=== PATIENT | male | born 1970 | race Caucasian/White ===

== ENCOUNTER 2020-01-13 22:19 | Emergency (ER) | payer SELFPAY ==
[2020-01-13 22:22] VITALS: BP 122/88; PULSE 96; RESP 18; TEMP 36.7; O2SAT 99; BMI 21.2
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
[2020-01-13 22:47] VITALS: BP 132/99; PULSE 99; RESP 20; O2SAT 98
[2020-01-13 23:23] VITALS: RESP 18; O2SAT 99
[2020-01-13] MEDS: morphine 4 mg/mL SDV 1 mL IVP (23:23)
[2020-01-13] MEDS: ondansetron 2 mg/ML SDV 2 mL 4 MG IVP (23:23)
[2020-01-13 23:25] VITALS: BP 120/88; PULSE 98; RESP 18; O2SAT 99
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
[2020-01-14] MEDS: HYDROcodone-acetaminophen 5-325 mg Tablet 3 TAB PO (00:21)
[2020-01-14] MEDS: tetanus-diphtheria tox (adult) 0.5 mL SDV IM (00:22)
[2020-01-14 00:40] VITALS: BP 130/94; PULSE 96; RESP 16; O2SAT 96
--- NOTE | 2020-01-14 09:38 | PC.SOCIAL ---
Received referral from ED regarding Ortho appt. Spoke with Caterina at [facility]. She will print off information to have Pat and Provider to review. If unable to schedule appt this nurse will be notified.
--- NOTE | 2020-01-15 14:13 | PC.SOCIAL ---
Call Received from [facility] in ortho to update that the number listed for this patient is not in service. The same number is listed for the Mother also. This nurse also tried and was the same outcome. [facility] and this nurse were not able to find another contact.
== END 2020-01-14 00:46 | disposition home or self-care (01) ==
PROVIDERS: Emergency Provider Physician Assistant
DX: S42.022A Displaced fracture of shaft of left clavicle, initial encounter for closed fracture (principal); S62.347A Nondisplaced fracture of base of fifth metacarpal bone, left hand, initial encounter for closed fracture; S01.01XA Laceration without foreign body of scalp, initial encounter; V19.9XXA Pedal cyclist (driver) (passenger) injured in unspecified traffic accident, initial encounter; Z23 Encounter for immunization
CPT/HCPCS: 12001; 12345; 29125; 70450; 72125; 73030; 73080; 73090; 73130; 90471; 90714; 96374; 96375; 99283; J2270; J2405

== ENCOUNTER 2020-02-05 15:13 | Emergency (ER) | payer SELFPAY ==
[2020-02-05 15:16] VITALS: BMI 21.2
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
[2020-02-05 15:21] VITALS: BP 130/88; PULSE 96; RESP 16; TEMP 36.8; O2SAT 98
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
[2020-02-05 16:03] VITALS: BP 130/86; PULSE 87; RESP 18
--- NOTE | 2020-02-06 08:25 | DCPLANNER ---
software design manager had message to schedule a follow up appointment for patient with ortho. software design manager called the ortho clinic, spoke with Pat, gave clinic patients information. software design manager was told that patients information would be printed and reviewed. Clinic will call patient with appointment information.
--- NOTE | 2020-02-07 13:08 | DCPLANNER ---
Patient has a follow up appointment scheduled for Tuesday February 11, 2020 at 2:[address] Goodwin. Patient called behavioral health case manager, patient was given appointment information.
--- NOTE | 2020-03-06 15:23 | DCPLANNER ---
Patient had an appointment scheduled for 02.11.20 with ortho - patient did attend appointment.
== END 2020-02-05 16:03 | disposition home or self-care (01) ==
PROVIDERS: Emergency Provider Emergency Medicine
DX: S42.022A Displaced fracture of shaft of left clavicle, initial encounter for closed fracture (principal); V19.9XXA Pedal cyclist (driver) (passenger) injured in unspecified traffic accident, initial encounter; J44.9 Chronic obstructive pulmonary disease, unspecified
CPT/HCPCS: 12345; 71045; 73000; 99281; 99283

== ENCOUNTER 2020-02-13 12:32 | Day surgery (SDC) | payer SELFPAY ==
[2020-02-12 13:11] VITALS: BMI 19.0
[2020-02-13] VITALS (9 sets, daily range): BP systolic 111–140; BP diastolic 78–100; PULSE 74–92; RESP 16–18; TEMP 36.3–36.6; O2SAT 96–100
--- NOTE | 2020-02-13 | XR_ITS ---
WS: [id number] Left clavicle, 3 views, C-arm fluoroscopy in the OR, 02/13/2020 Clinical Data: ORIF clavicle Comparison: Left clavicle, 02/05/2020. Findings: The mid shaft fracture of the left clavicle has been reduced with an orthopedic plate fixed to the cl avicle with at least 9 orthopedic screws. XR/[place] [id number] Impression: Internal fixation of mid shaft fracture of the left clavicle.
--- NOTE | 2020-02-13 | SCC_ITS ---
Procedure Done: Open reduction internal fixation left clavicle 10.3 seconds of fluoroscopic guidance, for a cumulative dose of 0.77 mGy, was provided to Dr. Goodwin by the radiology department. C-arm images of the LEFT clavicle were saved for the patient's permanent record. [facility]
--- NOTE | 2020-02-13 13:11 | ANES.PREANE2 ---
Pre-Anesthetic Assessment Pre-Anesthetic Assessment: Height/Weight: Height 1.83 m Weight 63.503 kg Temp Pulse Resp BP Pulse Ox 97.8 F 86 18 118/87 98 02/13/20 12:46 02/13/20 12:46 02/13/20 12:46 02/13/20 12:46 02/13/20 12:46 Preop Diagnosis: Left clavicle fracture Proposed Procedure: Operation Date: 02/13/20 14:10 Proposed Procedures p ORIF Clavicle [id number] S42.022A(Left) - Adriano Goodwin MD Familial anesthetic complications: none Was Beta Hayden taken within 24 hours: N/A Last intake: Intake Last Liquid Date 02/12/20 Last Liquid Time 21:00 Last Solid Date 02/12/20 Last Solid Time 17:00 Social: Social History: No alcohol and No tobacco Exam: Pre-Anes Outpt Exam: alert, oriented x 3, clear to auscultation bilaterally and regular rate & rhythm Airway: Cervical ROM: WNL MP: 2 Dentition: Other (poor dentition, missing teeth) Pulmonary: Pulmonary: COPD Comments: severe copd w/ mesothelioma 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 patient tolerating current pain well and doesn't like needles, so would like to avoid nerve block Anesthetic Plan: ASA status: 1 Risk of > 500 ml blood loss (7ml/kg in children): No PFSH Anesthesia PFSH: Medical History (Updated 02/13/20 @ 00:00 by ) COPD (chronic obstructive pulmonary disease) Data Anesthesia Cardiac Studies: No Data to Display
--- NOTE | 2020-02-13 13:13 | W.PM.OPSUD ---
Surgery/Procedure H&P Update DATE OF PROCEDURE: February 13, 2020 DATE H&P PERFORMED: 02/11/20 PREOP DIAGNOSIS: Left clavicle fracture PLANNED PROCEDURE: Operation Date: 02/13/20 14:10 Proposed Procedures p ORIF Clavicle 25235 S42.022A(Left) - Adriano Goodwin MD
[2020-02-13] MEDS: sodium chloride 0.9% 1,000 ML 30 ML IV (13:43)
--- NOTE | 2020-02-13 18:48 | PM.OP ---
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 He was given 2 g of Ancef. He is prepped and draped in a beachchair position. A 8 cm long incision was made over the prominent clavicle prominence along the line of the clavicle medially and laterally. Dissection was carried down full-thickness and the delto pectoral fascia was split periosteum and elevated off the dorsal clavicle fragments. The fibrous nonunion was identified. Utilizing a [place] both ends of the bone were eventually freed and the clavicle brought out to length. There is a prominent anterior spike medially which corresponded to a anterior deficit with the lateral fragment. These fragments were keyed together in a single interfragmentary anterior to posterior screw was placed. The 10 hole plate was then contoured dorsally over the clavicle and fixed with a total of 9 locking and nonlocking screws screws leaving one over the fracture site. Intraoperative imaging showed satisfactory [place] the hardware and alignment of the clavicle. The wound was irrigated with saline. The periosteum and fascia was reapproximated dorsally over the clavicle with 0 Vicryl. Subcutaneous tissues were closed with 2-0 Vicryl. The skin was closed with skin loc. Xeroflo gauze 4 x 4's and Tegaderm were applied.
[2020-02-13] MEDS: meperidine 50 mg/mL INJ 12.5 MG IVP (19:00)
--- NOTE | 2020-02-13 19:01 | ANE.PACU2 ---
Inpatient post-anesthesia follow up: Airway intact: Yes Vital signs: Temperature 97.8 F Pulse Rate 86 Respiratory Rate 18 Blood Pressure 118/87 Pulse Oximetry 98 Oxygen Delivery Me thod Room Air Oxygen Flow Rate Fraction of Inspir ed Oxygen Hydration adequate: Yes Nausea and vomiting: No Pain level: 1 Mental status: Baseline
--- NOTE | 2020-02-14 07:43 | SUR.PHASEI ---
02/12/1943 pt awake alert wants to go eat, pt instructions given pt alert and understanding, pt instructed to keep sling in place and not to use lt arm, dressing D/I, pt drank 2 sodas, IV DC'D INTACT, PT UP DRESSED SELF WITH MINIMAL ASSIST TO CAR WITH FRIEND PER W/C.
== END 2020-02-13 19:45 | disposition home or self-care (01) ==
PROVIDERS: Visit Provider Orthopaedic Surgery
PROC: (CPT 23515; principal; 2020-02-13 14:10)
DX: S42.022K Displaced fracture of shaft of left clavicle, subsequent encounter for fracture with nonunion (principal); J44.9 Chronic obstructive pulmonary disease, unspecified; V19.9XXD Pedal cyclist (driver) (passenger) injured in unspecified traffic accident, subsequent encounter
CPT/HCPCS: 20690; 23515; 12345; 73000; 76000; C1713; J0131; J0690; J1100; J1580; J2175; J2250; J2405; J2704; J2710; J3010; J3490; J7030

== ENCOUNTER 2021-02-11 00:51 | Inpatient (IN) | payer MEDICAID, SELFPAY ==
[2021-02-11 01:03] VITALS: BP 155/102; PULSE 93; RESP 22; TEMP 36.7; O2SAT 98; BMI 20.7
--- NOTE | 2021-02-11 03:45 | CTR_ITS ---
PROCEDURE INFORMATION: Exam: CT Abdomen And Pelvis With Contrast Exam date and time: 02/11/2021 3:45 AM Age: 50 years old Clinical indication: Abdominal pain; Generalized; Patient HX: Diffuse abd pain with nausea. Dysuria. TECHNIQUE: Imaging protocol: Computed tomography of the abdomen and pelvis with contrast. Radiation optimization: All CT scans at this facility use at least one of these dose optimization techniques: automated exposure control; mA and/or kV adjustment per patient size (includes targeted exams where dose is matched to clinical indication); or iterative reconstruction. Contrast material: OMNI 300; Contrast volume: 95 ml; Contrast route: INTRAVENOUS (IV); COMPARISON: CR (CHEST, ) 02/11/2021 4:25 AM RADIATION DOSE METRICS: Total DLP (mGy-cm): 900.41 FINDINGS: Lungs: The lung bases are clear. No effusion Liver: Multiple subcentimeter lesions are present primarily at the periphery of the liver. Gallbladder and bile ducts: Gallbladder is normal. Pancreas: Pancreas is normal. Spleen: Spleen is normal. Adrenal glands: Adrenals are normal. Kidneys and ureters: Bilateral striated nephrograms are present in both kidneys consistent with pyelonephritis. 1.4 cm left renal cyst. Stomach and bowel: Unremarkable. No obstruction. No mucosal thickening. Appendix: No evidence of appendicitis. Intraperitoneal space: Unremarkable. No free air. No significant fluid collection. Vasculature: Unremarkable. No abdominal aortic aneurysm. Lymph nodes: Unremarkable. No enlarged lymph nodes. Urinary bladder: Unremarkable as visualized. Reproductive: Unremarkable as visualized. Bones/joints: Unremarkable. No acute fracture. Soft tissues: Unremarkable. CT/CT abdomen pelvis w con* [id number] IMPRESSION: 1. Bilateral striated nephrograms are present in both kidneys consistent with pyelonephritis. 2. Multiple liver lesions which are too small to accurately characterize but could represent cysts. Alternatively, given the presence of bilateral pyelonephritis, findings may represent foci of infection. Metastatic disease is also possibility. Recommend short interval follow-up. THIS REPORT CONTAINS FINDINGS THAT MAY BE CRITICAL TO PATIENT CARE. The findings were verbally communicated by me to MAXI HILL via telephone conference at 5:29 AM CDT on 02/11/2021. The findings were acknowledged and understood. COMMENTS: Consistent with the [employer]'s Incidental Findings Committee white paper (J Am Keke Radiol 2018): Any incidental renal lesion less than 1 cm or classified as too small to characterize, or any incidental cystic renal lesion characterized as simple-appearing, is likely benign. No follow-up imaging is recommended for these lesions per consensus recommendations based on imaging criteria. Radiation Dose CTDIVOL = (mGy): DLP = 900.41 (mGy-cm)
--- NOTE | 2021-02-11 03:51 | XRR_ITS ---
PROCEDURE INFORMATION: Exam: XR Chest Exam date and time: 02/11/2021 3:51 AM Age: 50 years old Clinical indication: Cough and tachypnea; Prior surgery; Surgery type: Clavicle fixation; Patient HX: Cough/sob. TECHNIQUE: Imaging protocol: XR of the chest. Views: 1 view. COMPARISON: CR XR chest 1V portable [id number] 02/05/2020 3:20 PM FINDINGS: Lungs: Single calcified pulmonary granuloma is present, consistent with prior granulomatous disease. Pleural spaces: Unremarkable. No pleural effusion. No pneumothorax. Heart/Mediastinum: Unremarkable. No cardiomegaly. Bones/joints: Buttress plate and screw fixation of the left clavicle. XR/XR chest 1V portable [id number] IMPRESSION: No acute disease.
--- NOTE | 2021-02-11 03:52 | ED_ITS ---
HPI - Abdominal Pain General: Chief Complaint: Abdominal Pain Stated Complaint: ABD Pain Time Seen by Provider: 02/11/21 03:34 Source: patient Mode of arrival: ambulatory Limitations: no limitations History of Present Illness: HPI narrative: 50-year-old male who is here with multiple complaints. His main complaint is been having abdominal pain for months. He states he also been having difficulty with bowel movements for 6 months and states he has been urinating without being able to control it for 6 to 8 months as well. He states the pain is sharp in his abdomen mainly right upper quadrant states he feels like it is nerve pain. He states that he has not had a real bowel movement in 3 to 4 months and is just very small bowel movements. He has had nausea but denies any vomiting. He denies any fever. Associated Symptoms: Reports chills, diarrhea, nausea and vomiting; Denies dysuria Review of Systems Const: Reports: chills Eyes: Denies: blurry vision or eye discomfort ENMT: Denies: throat pain or dental pain Card: Denies: chest pain Resp: Denies: dyspnea GI: Reports: abdominal pain, nausea, vomiting and diarrhea : Denies: dysuria Musc: Denies: neck pain or back pain Skin/Breast: Denies: rash Neuro: Denies: headache(s) Psych: Denies: depression Matthias/Lymph: Denies: easy bruising All/Imm: Denies: urticaria PFS ED PFSH: Medical History (Updated 02/11/21 @ 05:39 by Maxi Hill MD) COPD (chronic obstructive pulmonary disease) Physical Exam Const: COMMON NORMALS: no acute distress and patient oriented x3 GENERAL APPEARANCE: disheveled and ill appearing HENMT: COMMON NORMALS: normocephalic and atraumatic HEAD & SCALP: normocephalic and atraumatic Eye: COMMON NORMALS: Equal, round and reactive pupils present and EOMs intact bilaterally PUPIL: Yes Equal, round and reactive pupils present Neck/C-Spine: COMMON NORMALS: full ROM and supple Chest: COMMONS NORMALS: normal inspection of the chest and normal palpation of entire chest wall Resp: COMMON NORMALS: normal respiratory effort, No retractions, No use of accessory muscles and clear to auscultation bilaterally AUSCULTATION: clear to auscultation bilaterally Cardio: COMMON NORMALS: regular rate, regular rhythm and No murmurs present (Cardio) RATE: regular rate RHYTHM: regular rhythm GI: COMMON NORMALS: Normal to inspection, nondistended, normoactive bowel sounds present, Soft to palpation, non-tender and no masses PALPATION: Yes Soft to palpation Extremity: COMMON NORMALS: normal to inspection and full ROM Neuro: COMMON NORMALS: patient oriented x3, moves all extremities and no focal motor deficits Psych: COMMON NORMALS: mental status grossly normal, Normal thought process present and cooperative THOUGHT PROCESS: Normal thought process present Skin: COMMON NORMALS: no rashes or lesions noted and no wounds GENERAL SKIN EXAM: no rashes or lesions noted Course Vital Signs: Vital signs: Vital Signs Temperature 98.0 F 02/11/21 01:03 Pulse Rate 84 02/11/21 05:26 Respiratory Rate 19 H 02/11/21 05:26 Blood Pressure 128/87 02/11/21 05:26 Pulse Oximetry 94 02/11/21 05:26 MDM - Abdominal Pain MDM Narrative: Medical decision making narrative: Patient presents here with elevated white count CT findings showing bilateral pyelonephritis. Patient also has liver lesions that are concerning for cyst versus infection foci versus metastases. Patient denies drug use we will check a urine drug screen. I started patient on IV antibiotics and spoke to the hospitalist will admit at this time. Lab Data: Labs: Lab Results 02/11/21 02/11/21 02/11/21 Range/Units 03:52 03:52 05:07 WBC 18.5 H (4.0-10.0) 10^3/ uL RBC 3.86 L (4.1-5.3) 10^6/u L Hgb 11.9 (11.7-16.6) g/dL Hct 35.7 L (42.0-52.0) % MCV 92.5 (80-94) fl MCH 30.8 (28.0-34.0) pg MCHC 33.3 (30.0-36.0) g/dL RDW 14.2 (12.1-15.1) % Plt Count 290 (130-400) 10^3/c mm MPV 9.5 (7.4-10.4) fL Neut % (Auto) 81.4 % Lymph % (Auto) 5.7 % [place] % (Auto) 6.0 % Eos % (Auto) 5.3 % Baso % (Auto) 0.4 % Neut # (Auto) 15.02 H (1.8-7.7) 10^3/u L Lymph # (Auto) 1.1 (0.8-4.8) 10^3/u L [place] # (Auto) 1.1 H (0.2-0.9) 10^3/u L Eos # (Auto) 1.0 H (0.0-0.8) 10^3/u L Baso # (Auto) 0.1 (0.0-0.1) 10^3/u L Nucleated RBC % (a uto) 0 % Nucleated RBCs # 0.0 /100WBC Sodium Cancelled 133 L Potassium Cancelled 4.1 Chloride Cancelled 100 Carbon Dioxide Cancelled 26 Anion Gap Cancelled 11.1 BUN Cancelled 14 Creatinine Cancelled 0.7 GFR Calculation Cancelled 120.4 Glucose Cancelled 79 Calculated Osmolal ity Cancelled 275 L Calcium Cancelled 7.2 L Total Bilirubin Cancelled 0.4 AST Cancelled 46 H ALT Cancelled 52 H Alkaline Phosphata se Cancelled 222 H Total Protein Cancelled 6.8 Albumin Cancelled 1.8 L Globulin Cancelled 5.0 H Lipase Cancelled 58 Imaging Data ^: CT Abd/Pel: Attestation: I personally reviewed and interpreted this imaging study as follows: Radiologist's impression: [address] [address] [address] Scan Report Signed Patient: Rk Orourke Unit #: [id number] : 1970 Age/Sex: 50 / M ADM Date: 02/11/21 Loc: ER Room/Bed: Attending Dr: Ordering Provider/Ordering MD: Maxi Hill MD Date of Service: 02/11/21 Procedure(s): CT abdomen pelvis w con* [id number] Accession Number(s): [id number] Report Number: [id number] PROCEDURE INFORMATION: Exam: CT Abdomen And Pelvis With Contrast Exam date and time: 02/11/2021 3:45 AM Age: 50 years old Clinical indication: Abdominal pain; Generalized; Patient HX: Diffuse abd pain with nausea. Dysuria. TECHNIQUE: Imaging protocol: Computed tomography of the abdomen and pelvis with contrast. Radiation optimization: All CT scans at this facility use at least one of these dose optimization techniques: automated exposure control; mA and/or kV adjustment per patient size (includes targeted exams where dose is matched to clinical indication); or iterative reconstruction. Contrast material: OMNI 300; Contrast volume: 95 ml; Contrast route: INTRAVENOUS (IV); COMPARISON: CR (CHEST, ) 02/11/2021 4:25 AM RADIATION DOSE METRICS: Total DLP (mGy-cm): 900.41 FINDINGS: Lungs: The lung bases are clear. No effusion Liver: Multiple subcentimeter lesions are present primarily at the periphery of the liver. Gallbladder and bile ducts: Gallbladder is normal. Pancreas: Pancreas is normal. Spleen: Spleen is normal. Adrenal glands: Adrenals are normal. Kidneys and ureters: Bilateral striated nephrograms are present in both kidneys consistent with pyelonephritis. 1.4 cm left renal cyst. Stomach and bowel: Unremarkable. No obstruction. No mucosal thickening. Appendix: No evidence of appendicitis. Intraperitoneal space: Unremarkable. No free air. No significant fluid collection. Vasculature: Unremarkable. No abdominal aortic aneurysm. Lymph nodes: Unremarkable. No enlarged lymph nodes. Urinary bladder: Unremarkable as visualized. Reproductive: Unremarkable as visualized. Bones/joints: Unremarkable. No acute fracture. Soft tissues: Unremarkable. CT/CT abdomen pelvis w con* [id number] IMPRESSION: 1. Bilateral striated nephrograms are present in both kidneys consistent with pyelonephritis. 2. Multiple liver lesions which are too small to accurately characterize but could represent cysts. Alternatively, given the presence of bilateral pyelonephritis, findings may represent foci of infection. Metastatic disease is also possibility. Recommend short interval follow-up. THIS REPORT CONTAINS FINDINGS THAT MAY BE CRITICAL TO PATIENT CARE. The findings were verbally communicated by me to MAXI HILL via telephone conference at 5:29 AM CDT on 02/11/2021. The findings were acknowledged and understood. COMMENTS: Consistent with the [employer]'s Incidental Findings Committee white paper (J Am Keke Radiol 2018): Any incidental renal lesion less than 1 cm or classified as too small to characterize, or any incidental cystic renal lesion characterized as simple-appearing, is likely benign. No follow-up imaging is recommended for these lesions per consensus recommendations based on imaging criteria. 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
[2021-02-11 03:53] VITALS: BP 149/112; PULSE 85; RESP 25; O2SAT 98
[2021-02-11] MEDS: sodium chloride 0.9% 1,000 ML 999 ML IV (04:02)
[2021-02-11] MEDS: metoclopramide 5 mg/mL SDV 2 mL 10 MG IVP (04:02)
[2021-02-11] MEDS: diphenhydrAMINE 50 mg/mL SDV 1mL IVP (04:03)
[2021-02-11 04:06] LABS: Basophils # 0.1 10^3/uL (0.0-0.1); Basophils % 0.4 %; Eosinophils % 5.3 %; Hematocrit 35.7 % (42.0-52.0); Hemoglobin 11.9 g/dL (11.7-16.6); Lymphocytes # 1.1 10^3/uL (0.8-4.8); Lymphocytes % 5.7 %; Mean Corpuscular HGB Conc 33.3 g/dL (30.0-36.0); Mean Corpuscular Hemoglobin 30.8 pg (28.0-34.0); Mean Corpuscular Volume 92.5 fl (80-94); Mean Platelet Volume 9.5 fL (7.4-10.4); Monocytes # 1.1 10^3/uL (0.2-0.9); Neutrophils # 15.02 10^3/uL (1.8-7.7); Neutrophils % 81.4 %; Nucleated Red Blood Cells % 0 %; Platelet Count 290 10^3/cmm (130-400); Red Blood Count 3.86 10^6/uL (4.1-5.3); Red Cell Distribution Width 14.2 % (12.1-15.1); White Blood Count 18.5 10^3/uL (4.0-10.0)
[2021-02-11] MEDS: iohexol 300 mg/mL 100 mL Btl IV (04:42)
[2021-02-11 05:26] VITALS: BP 128/87; PULSE 84; RESP 19; O2SAT 94
[2021-02-11 05:31] LABS: Alanine Aminotransferase 52 U/L (0-41); Albumin Level 1.8 g/dL (3.5-5.2); Alkaline Phosphatase 222 IU/L (40-130); Blood Urea Nitrogen 14 mg/dL (6-20); Calcium 7.2 mg/dL (8.5-10.5); Carbon Dioxide 26 mmol/L (22-29); Chloride 100 mmol/L (98-107); Glomerular Filtration Rate 120.4 mL/min (90-130); Glucose 79 mg/dL (65-115); Lipase 58 U/L (13-60); Osmolality Calculated 275 mOsm/kg (285-295); Sodium 133 mmol/L (136-145); Total Bilirubin 0.4 mg/dL (0.15-1.2); Total Protein 6.8 g/dL (6.6-8.7)
[2021-02-11 05:32] LABS: Anion Gap 11.1 (5-19); Aspartate Amino Transferase 46 U/L (0-40); Potassium 4.1 mmol/L (3.5-5.1)
[2021-02-11 05:40] LABS: Add Urine Microscopic? NO; Charge for UA Resulting for Rev
[2021-02-11 05:54] LABS: Bilirubin Urine Neg (Negative); Blood Urine Neg (Negative); Glucose Urine UA Norm (Normal); Ketones Urine Negative (Negative); Leukocyte Esterase Urine Negative (Negative); Nitrate Urine Negative (Negative); Protein Urine Neg (Negative); Specific Gravity, Urine 1.005 (1.005-1.030); Urine Appearance Clear (CLEAR); Urine Color Amber (Yellow); Urobilinogen Urine 1 mg/dL (Negative); pH Urine 7 (5-7)
[2021-02-11 06:37] LABS: Amphetamines Screen Urine Positive (Negative); Barbiturates Screen Urine Negative (Negative); Benzodiazepines Screen Urine Negative (Negative); Cocaine Screen Urine Negative (Negative); Opiate Screen Urine Negative (Negative); PCP Screen Urine Negative (Negative); THC Screen Urine Positive (Negative)
[2021-02-11] MEDS: cefTRIAXone 1,000 MG in sodium chloride 0.9% (plus) 50 ML 100 MG IV (07:06)
--- NOTE | 2021-02-11 08:24 | PC.PHAR ---
PT STATES HE TAKES NO RX OR OTC MEDICATIONS-PT STATES HE HAS A PROAIR INHALER THAT HE USES STATES ITS HIS FRIENDS INHALER BUT HE USES IT
--- NOTE | 2021-02-11 09:48 | US_ITS ---
WS: [id number] RIGHT UPPER QUADRANT ULTRASOUND HISTORY: increased LFT's COMPARISON: Abdomen CT 02/11/2021 Liver: 17.4 cm in length. Liver is top normal size to slightly enlarged. No discrete masses are ident ified within the liver. There is some very mild in homogeneity within the liver and bright portal tri ads. Gallbladder: Normally distended gallbladder. Mild diffuse gallbladder wall thickening. CBD: 0.6 cm Pancreas: Normal size and echogenicity. Right kidney: 12.2 cm in length. Kidney is mildly enlarged with loss of the normal cortical medullary junction. No obstruction. Aorta and IVC: Unremarkable abdominal aorta and IVC. No ascites. US/US gall bladder [id number] IMPRESSION: 1. Mildly enlarged heterogeneous liver without a discrete mass identified. Pro minent portal triads and gallbladder wall thickening. These findings can be see n with acute hepatitis. 2. Suspect acute RIGHT polynephritis. 3. Recommend follow-up three-phase hepatic liver CT in one to 2 weeks for furt her evaluation of the liver.
--- NOTE | 2021-02-11 09:49 | USCV_ITS ---
Rk Orourke Age: 50 Gender: M : 1970 Exam Date: 02/11/2021 10:11 Ordering Phys: Hiro Delaney MD Technologist: Exam Location: [facility] [place] Indication: ? ENDOCARDITIS BP: 128 / 87 HR: 82 Rhythm: Sinus Technical Quality: Adequate MEASUREMENTS (Male / Female) Normal Values 2D ECHO LV Diastolic Diameter PLAX 3.3 cm 4.2 - 5.9 / 3.9 - 5.3 cm LV Systolic Diameter PLAX 2.6 cm IVS Diastolic Thickness 1.1 cm 0.6 - 1.0 / 0.6 - 0.9 cm IVS Systolic Thickness 1.3 cm LVPW Diastolic Thickness 1.0 cm 0.6 - 1.0 / 0.6 - 0.9 cm LVPW Systolic Thickness 1.2 cm LVOT Diameter 2.1 cm LV Ejection Fraction 2D Teich 28.9 % LV Ejection Fraction MOD 2C 58.3 % LV Ejection Fraction 2C AL 57.4 % LA Diameter 3.4 cm LA Width 3.3 cm LA Height 3.8 cm RA Width 3.4 cm RA Height 4.3 cm M-MODE Aortic Annulus Diameter 3.2 cm LA Ao Ratio MM 1.0 DOPPLER AV Peak Velocity 101.0 cm/s LVOT Peak Velocity 97.0 cm/s AV Area Cont Eq vti 3.6 cm squared AV Area Cont Eq pk 3.2 cm squared MV Area PHT 5.0 cm squared Mitral E to A Ratio 1.0 MV E' Velocity 46.5 cm/s Mitral E to MV E' Ratio 8.2 Mitral E to LV E' Lateral Ratio 6.9 Mitral E to LV E' Septal Ratio 10.2 TR Peak Velocity 126.3 cm/s TR Peak Gradient 6.4 mmHg TV Peak E Velocity 85.0 cm/s Right Atrial Pressure 3.0 mmHg Pulmonary Artery Systolic Pressu 9.4 mmHg FINDINGS Left Ventricle Normal left ventricular cavity size. Severely decreased left ventricular systolic function. Global left ventricular hypokinesis. Left ventricular ejection fraction is estimated at 35 %. Grade I/IV diastolic dysfunction (abnormal relaxation filling pattern), normal to mildly elevated filling pressures. Right Ventricle The right ventricle is normal in size and function. Right Atrium The right atrium is normal in size. Left Atrium The left atrium is normal in size. Mitral Valve Moderately thickened mitral valve. No mitral valve stenosis. No mitral valve regurgitation. Aortic Valve Aortic valve sclerosis without stenosis or regurgitation. Tricuspid Valve Structurally normal tricuspid valve without significant stenosis or regurgitation. Pulmonary artery systolic pressure is normal. Pulmonic Valve Structurally normal pulmonic valve without significant stenosis. There is no pulmonic regurgitation. Pericardium Normal pericardium without effusion. Aorta Normal ascending aorta dimension. CONCLUSIONS 1-Normal left ventricular cavity size. Severely decreased left ventricular systolic function. Global left ventricular hypokinesis. Left ventricular ejection fraction is estimated at 35 %. Grade I/IV diastolic dysfunction (abnormal relaxation filling pattern), normal to mildly elevated filling pressures. 2-No significant valve abnormalities. 3-There is no pericardial effusion. 4-Pulmonary artery systolic pressure is within normal limits. 5-Right atrial pressure is around 5 mm of mercury. 6-There are no prior echocardiogram studies to compare. Domitila Hernandez MD (Electronically Signed) Final Date: 11 February 2021 18:24 S
[2021-02-11 10:54] LABS: HIV 1 & 2 Antibody Non-Reactive (Non-Reactiv); HIV 1 & 2 Antigen Non-Reactive (Non-Reactiv)
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
--- NOTE | 2021-02-11 11:13 | PC.NURSE ---
Patient left against medical advice. Dr. eubanks spoke with patient concerning risks about leaving against medical advice. Patient verbalized understanding.
--- NOTE | 2021-02-12 18:29 | PC.RESP ---
Pulmonary Rehab information sent to patient.
== END 2021-02-11 11:08 | disposition left against medical advice (07) | DRG 392 ==
LOC: ER 09:40 → ER IP 10:28
PROVIDERS: Admitting Provider Internal Medicine; Emergency Provider Emergency Medicine; Visit Provider Internal Medicine
DX: R10.9 Unspecified abdominal pain (principal); Z53.29 Procedure and treatment not carried out because of patient's decision for other reasons; J44.9 Chronic obstructive pulmonary disease, unspecified; K76.9 Liver disease, unspecified; F15.90 Other stimulant use, unspecified, uncomplicated; F17.210 Nicotine dependence, cigarettes, uncomplicated; R35.0 Frequency of micturition
CPT/HCPCS: 71045; 74177; 76705; 80053; 80306; 81003; 83690; 85025; 87040; 87806; 93306; 96365; 96375; 99285; J0696; J1200; J2765; J7030; Q9967

== ENCOUNTER 2021-02-13 12:25 | Inpatient (IN) | payer MEDICAID, SELFPAY ==
[2021-02-13] VITALS (9 sets, daily range): BP systolic 129–162; BP diastolic 88–102; PULSE 84–93; RESP 14–22; TEMP 36.8–37.2; O2SAT 93–100; BMI 22.5
--- NOTE | 2021-02-13 14:11 | PC.NURSE ---
PT ARRIVED TO ROOM AT 14OO; ASSUMED CARE AT THIS TIME.
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
[2021-02-13 14:28] LABS: Basophils # 0.1 10^3/uL (0.0-0.1); Basophils % 0.3 %; Eosinophils # 0.9 10^3/uL (0.0-0.8); Eosinophils % 4.8 %; Hematocrit 32.7 % (42.0-52.0); Hemoglobin 10.8 g/dL (11.7-16.6); Lymphocytes % 5.5 %; Mean Corpuscular Hemoglobin 30.6 pg (28.0-34.0); Mean Corpuscular Volume 92.6 fl (80-94); Mean Platelet Volume 9.4 fL (7.4-10.4); Monocytes # 1.1 10^3/uL (0.2-0.9); Monocytes % 5.7 %; Neutrophils # 15.21 10^3/uL (1.8-7.7); Neutrophils % 82.6 %; Nucleated Red Blood Cells % 0 %; Platelet Count 257 10^3/cmm (130-400); Red Blood Count 3.53 10^6/uL (4.1-5.3); Red Cell Distribution Width 14.5 % (12.1-15.1); White Blood Count 18.4 10^3/uL (4.0-10.0)
[2021-02-13 14:38] LABS: Alanine Aminotransferase 55 U/L (0-41); Albumin Level 2.1 g/dL (3.5-5.2); Alkaline Phosphatase 271 IU/L (40-130); Anion Gap 10.5 (5-19); Aspartate Amino Transferase 54 U/L (0-40); Blood Urea Nitrogen 13 mg/dL (6-20); Calcium 7.5 mg/dL (8.5-10.5); Carbon Dioxide 26 mmol/L (22-29); Chloride 98 mmol/L (98-107); Globulin 4.9 g/dL (1.3-4.6); Glomerular Filtration Rate 79.8 mL/min (90-130); Glucose 117 mg/dL (65-115); Lipase 83 U/L (13-60); Osmolality Calculated 273 mOsm/kg (285-295); Potassium 3.5 mmol/L (3.5-5.1); Sodium 131 mmol/L (136-145); Total Bilirubin 0.3 mg/dL (0.15-1.2)
[2021-02-13 15:01] LABS: Add Urine Microscopic? NO; Charge for UA Resulting for Rev
[2021-02-13] MEDS: fentaNYL 50 mcg/mL INJ 2mL IVP (15:10)
[2021-02-13 15:23] LABS: Bilirubin Urine Neg (Negative); Blood Urine Neg (Negative); Glucose Urine UA Norm (Normal); Ketones Urine Negative (Negative); Leukocyte Esterase Urine Negative (Negative); Nitrate Urine Negative (Negative); Protein Urine Neg (Negative); Urine Appearance Clear (CLEAR); Urine Color Yellow (Yellow); Urobilinogen Urine 1 mg/dL (Negative); pH Urine 6 (5-7)
--- NOTE | 2021-02-13 15:50 | CTR_ITS ---
PROCEDURE INFORMATION: Exam: CT Abdomen And Pelvis Without Contrast Exam date and time: 02/13/2021 3:50 PM Age: 50 years old Clinical indication: Abdominal pain; Additional info: Patient refused contrast, R sided pelyo 2 days ago TECHNIQUE: Imaging protocol: Computed tomography of the abdomen and pelvis without contrast. Radiation optimization: All CT scans at this facility use at least one of these dose optimization techniques: automated exposure control; mA and/or kV adjustment per patient size (includes targeted exams where dose is matched to clinical indication); or iterative reconstruction. COMPARISON: CT abdomen pelvis w con* [id number] 02/11/2021 4:38 AM RADIATION DOSE METRICS: Total DLP (mGy-cm): 1002.88 FINDINGS: Lungs: Moderate hyperinflation of the lower lungs. Liver: Normal. No mass. Gallbladder and bile ducts: Gallbladder wall thickened. However, gallbladder relatively contracted. Negative for biliary system dilation. Pancreas: Normal. No ductal dilation. Spleen: Normal. No splenomegaly. Adrenal glands: Normal. No mass. Kidneys and ureters: Negative for hydroureteronephrosis. Small left kidney cortical simple cyst. 1 mm nonobstructing right kidney stone. 1 mm nonobstructing left lower pole kidney stone. Renal parenchyma is heterogeneous bilaterally of uncertain significance. No renal enlargement Stomach and bowel: No inflammatory bowel wall thickening changes are identified. Moderate fecal volume. Negative for bowel obstruction or perforation. Appendix: No evidence of appendicitis. Intraperitoneal space: Layering small volume simple pelvic free fluid of uncertain significance. Vasculature: Mild severity atherosclerosis of abdominal aorta without aneurysm. Lymph nodes: Unremarkable. No enlarged lymph nodes. Urinary bladder: Unremarkable as visualized. Reproductive: Unremarkable as visualized. Bones/joints: Unremarkable. No acute fracture. Soft tissues: Unremarkable. CT/CT abdomen pelvis wo con [id number] IMPRESSION: 1. Symmetric, somewhat heterogeneous bilateral renal parenchyma without obstruction apparent. 2. Tiny bilateral nonobstructing kidney stones. 3. Gallbladder wall thickening, although contracted appearance. COMMENTS: Consistent with the [employer]'s Incidental Findings Committee white paper (J Am Keke Radiol 2018): Any incidental renal lesion less than 1 cm or classified as too small to characterize, or any incidental cystic renal lesion characterized as simple-appearing, is likely benign. No follow-up imaging is recommended for these lesions per consensus recommendations based on imaging criteria. Radiation Dose CTDIVOL = (mGy): DLP = 1002.88 (mGy-cm)
[2021-02-13] MEDS: metroNIDAZOLE IV 500 MG/100 ML PREMIX 100 MG IV (16:20)
[2021-02-13] MEDS: cefepime 1,000 MG in sodium chloride 0.9% (plus) 50 ML 100 MG IV (16:20)
[2021-02-13 16:21] LABS: INR 1.24 (0.8-1.2)
[2021-02-13 16:23] LABS: Partial Thromboplastin Time 30.9 SECONDS (23.9-36.7)
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
[2021-02-13 17:32] LABS: Lactate (Lactic Acid level) 2.1 mmol/L (0.5-2.2)
[2021-02-13 17:49] LABS: C Reactive Protein 73.9 mg/L (0.0-4.9)
[2021-02-13 17:57] LABS: Procalcitonin 0.24 ng/mL (0-0.5)
[2021-02-13 18:03] LABS: Hepatitis A Antibody IgM Non-Reactive (Nonreactive); Hepatitis B Core AB, Total Reactive (Nonreactive); Hepatitis B Surface AB 3.5 (11.5-1000); Hepatitis C Virus Antibody Non-Reactive (Nonreactive)
[2021-02-13 18:15] LABS: Ammonia 40 umol/L (16-60)
[2021-02-13 18:30] LABS: SARS Covid-2 Antigen Negative (Negative)
--- NOTE | 2021-02-13 19:10 | PC.NURSE ---
ATTEMPTED TO CALL REPORT TO FLOOR. WAITED 10 MINUTES ON HOLD.
[2021-02-13 21:31] LABS: Tumor Marker Alpha Fetoprotein 1.9 ng/mL (0-8.3)
[2021-02-13] MEDS: sodium chloride 0.9% 1,000 ML 75 ML IV (22:09)
[2021-02-13] MEDS: piperacillin-tazobactam 3.375 GM in sodium chloride 0.9% (plus) 50 ML IV (22:16)
[2021-02-13] MEDS: enoxaparin 40 mg/0.4 mL Syringe SUBCUT (22:18)
[2021-02-13 22:37] LABS: Hepatitis B Surface Antigen Reactive (Nonreactive)
[2021-02-14 03:31] VITALS: BP 157/94; PULSE 89; RESP 18; TEMP 37.1; O2SAT 96
[2021-02-14] MEDS: piperacillin-tazobactam 3.375 GM in sodium chloride 0.9% (plus) 50 ML IV ×3 (05:22→21:31)
[2021-02-14 06:31] LABS: Basophils # 0.1 10^3/uL (0.0-0.1); Basophils % 0.3 %; Eosinophils # 0.6 10^3/uL (0.0-0.8); Eosinophils % 3.4 %; Hematocrit 36.7 % (42.0-52.0); Hemoglobin 11.8 g/dL (11.7-16.6); Lymphocytes % 5.4 %; Mean Corpuscular HGB Conc 32.2 g/dL (30.0-36.0); Mean Corpuscular Hemoglobin 31.6 pg (28.0-34.0); Mean Corpuscular Volume 98.1 fl (80-94); Mean Platelet Volume 9.3 fL (7.4-10.4); Monocytes # 1.2 10^3/uL (0.2-0.9); Monocytes % 6.8 %; Neutrophils # 14.52 10^3/uL (1.8-7.7); Neutrophils % 82.9 %; Nucleated Red Blood Cells % 0 %; Platelet Count 198 10^3/cmm (130-400); Red Blood Count 3.74 10^6/uL (4.1-5.3); Red Cell Distribution Width 14.8 % (12.1-15.1); White Blood Count 17.5 10^3/uL (4.0-10.0)
[2021-02-14 06:54] LABS: Alanine Aminotransferase 56 U/L (0-41); Albumin Level 2.1 g/dL (3.5-5.2); Alkaline Phosphatase 201 IU/L (40-130); Anion Gap 11.5 (5-19); Aspartate Amino Transferase 48 U/L (0-40); Blood Urea Nitrogen 13 mg/dL (6-20); Calcium 7.4 mg/dL (8.5-10.5); Carbon Dioxide 25 mmol/L (22-29); Chloride 101 mmol/L (98-107); Globulin 4.5 g/dL (1.3-4.6); Glomerular Filtration Rate 79.8 mL/min (90-130); Glucose 95 mg/dL (65-115); Lipase 72 U/L (13-60); Osmolality Calculated 278 mOsm/kg (285-295); Potassium 3.5 mmol/L (3.5-5.1); Sodium 134 mmol/L (136-145); Total Bilirubin 0.4 mg/dL (0.15-1.2); Total Protein 6.6 g/dL (6.6-8.7)
[2021-02-14 07:53] VITALS: BP 161/94; PULSE 77; RESP 16; TEMP 36.4; O2SAT 99
[2021-02-14 12:00] VITALS: BP 156/82; PULSE 89; RESP 16; TEMP 36.9; O2SAT 97
--- NOTE | 2021-02-14 14:23 | PM.PN ---
Subjective Subjective: Interval history: Patient had 4+ bowel movements after getting bowel regimen, he did not require naltrexone for opiate-induced constipation Hepatitis panel came back positive for surface antigen positive core antibodies positive liver enzymes not getting worse, bilirubin normal, HIV panel negative However at this point I am not sure if it is acute versus chronic hepatitis B there is no further delineation of hepatitis B core antibodies but considering the fact surface antibodies are positive this most likely is more than 2 weeks old Alpha-fetoprotein unremarkable Vitals/I&O/Wt Last Vital Signs Temp 98.5 F 02/14/21 12:00 Pulse 89 02/14/21 12:00 Resp 16 02/14/21 12:00 BP 156/82 02/14/21 12:00 Pulse Ox 97 02/14/21 12:00 02/13/21 02/14/21 02/14/21 22:59 06:59 14:59 Intake Total 150 / 150 50 / 200 1050 / 1050 Output Total 375 / 375 Balance 150 / 150 -325 / -175 1050 / 1050 Weight last 48 hrs Weight 69.201 kg Weight 66.678 kg Physical Exam Narrative: EXAM NARRATIVE: Patient feeling better today, and no abdominal tenderness or peritonitis He was complaining of some pain around his left testicular area however no ulcer, it is tender to palpation No redness found S1, S2 clinically looks euvolemic Abdomen soft EOMI, PERRLA No signs of hepatic encephalopathy Data : 02/14/21 05:55 02/14/21 05:55 Micro: Microbiology 02/14/21 07:00 Enteric Pathogens (PCR) - Final Stool Routine Collection Parasite Antigen Panel - Final 02/13/21 16:20 Blood Culture - Preliminary Blood SPECIMEN COLLECTED 02/13/21 16:24 Blood Culture - Preliminary Blood SPECIMEN COLLECTED A&P Assessment and plan (1) Hepatitis B: Status: Acute (2) Liver nodule: Status: Acute (3) Abdominal pain: Status: Acute (4) Constipated: Status: Acute (5) Methamphetamine use: Status: Acute (6) Transaminitis: Status: Acute (7) Leukocytosis: Status: Acute (8) Abdominal pain: Status: Acute Additional A&P Information Hepatitis B which would explain abnormal transaminases This can also present with generalized body aches Patient is denying IV drug abuse U tox positive for methamphetamine HIV panel negative At this point am not sure whether this is acute versus chronic hepatitis B infection since there are no hepatitis B core antibody delineation There is a high risk of lost to follow-up as he has no PCP I requested lining caser to set up PCP on Monday and set him up with [facility] so he could afford his medication No signs of hepatic encephalopathy, ammonia level normal What I could tell from his BMP is his low albumin which would indicate towards chronic carrier state of hepatitis B PT is very close to normal value, I will go ahead and start him on tenofovir Left testicular pain will request ultrasound with Dopplers to rule out torsion Alpha-fetoprotein unremarkable, interestingly repeated CT scan did not show any liver mass but three-phase CT scan was recommended which patient refused Constipated: Resolved after bowel regimen Leukocytosis seems secondary to hepatitis No active signs of UTI however has severe tenderness I would continue Zosyn for 1 more day Full code Regular diet DVT prophylaxis Lovenox Attestations Medical Necessity Statement*: Will discharge on Monday Time Spent in Patient Care: 16 - 35 minutes Coding Level of Care Code Acute High School Tutor for g Fwd Diagnoses Hepatitis B B19.10 Liver nodule K76.89 Abdominal pain R10.9 Constipated K59.00 Methamphetamine use F15.10 Transaminitis R74.01 Leukocytosis D72.829 Abdominal pain R10.9
[2021-02-14 16:00] VITALS: BP 151/82; PULSE 92; RESP 16; TEMP 36.9; O2SAT 97
[2021-02-14 19:57] VITALS: BP 146/89; PULSE 104; RESP 20; TEMP 37.6; O2SAT 97
[2021-02-14 21:28] VITALS: RESP 18
[2021-02-14] MEDS: oxyCODONE 5 mg IR Tab/Cap PO (21:28)
[2021-02-14] MEDS: ipratropium-albuterol 3 mL Neb INHALATION (22:16)
[2021-02-15] VITALS (10 sets, daily range): BP systolic 113–147; BP diastolic 67–86; PULSE 76–94; RESP 16–18; TEMP 36.7–37.4; O2SAT 94–98
[2021-02-15] MEDS: oxyCODONE 5 mg IR Tab/Cap PO ×2 (04:17→15:48)
[2021-02-15] MEDS: piperacillin-tazobactam 3.375 GM in sodium chloride 0.9% (plus) 50 ML IV ×3 (05:16→23:15)
--- NOTE | 2021-02-15 05:27 | PC.NURSE ---
Patient AAOx4, c/o pain in scrotum that is relieved with pain medication per MAR. No new events over night, no needs at this time. Room clutter free and call light in reach. Turns self in bed, will report to oncoming nurse and handoff at shift change.
[2021-02-15 06:29] LABS: Basophils # 0.1 10^3/uL (0.0-0.1); Basophils % 0.4 %; Eosinophils # 1.3 10^3/uL (0.0-0.8); Eosinophils % 8.3 %; Hematocrit 29.3 % (42.0-52.0); Hemoglobin 9.7 g/dL (11.7-16.6); Lymphocytes % 6.6 %; Mean Corpuscular HGB Conc 33.1 g/dL (30.0-36.0); Mean Corpuscular Hemoglobin 30.6 pg (28.0-34.0); Mean Corpuscular Volume 92.4 fl (80-94); Mean Platelet Volume 9.1 fL (7.4-10.4); Monocytes # 1.2 10^3/uL (0.2-0.9); Monocytes % 7.6 %; Neutrophils # 11.63 10^3/uL (1.8-7.7); Neutrophils % 75.5 %; Nucleated Red Blood Cells % 0 %; Platelet Count 239 10^3/cmm (130-400); Red Blood Count 3.17 10^6/uL (4.1-5.3); Red Cell Distribution Width 14.6 % (12.1-15.1); White Blood Count 15.4 10^3/uL (4.0-10.0)
[2021-02-15 07:15] LABS: Alanine Aminotransferase 41 U/L (0-41); Albumin Level 1.8 g/dL (3.5-5.2); Alkaline Phosphatase 189 IU/L (40-130); Anion Gap 10.5 (5-19); Aspartate Amino Transferase 36 U/L (0-40); Blood Urea Nitrogen 16 mg/dL (6-20); Carbon Dioxide 25 mmol/L (22-29); Chloride 97 mmol/L (98-107); Glomerular Filtration Rate 58.9 mL/min (90-130); Glucose 98 mg/dL (65-115); Osmolality Calculated 269 mOsm/kg (285-295); Potassium 3.5 mmol/L (3.5-5.1); Sodium 129 mmol/L (136-145); Total Bilirubin 0.3 mg/dL (0.15-1.2); Total Protein 5.8 g/dL (6.6-8.7)
[2021-02-15 08:24] LABS: Hepatitis B Core AB, Total Reactive (Nonreactive)
--- NOTE | 2021-02-15 18:13 | US_ITS ---
WS: [id number] TESTICULAR ULTRASOUND HISTORY: Left testicle pain COMPARISON: None available. TECHNIQUE: Real-time and color Doppler imaging or utilized to perform a testicular ultrasound. Right testicle: 3.6 cm x 2.4 cm x 2.3 cm. Normal vascularity. Very mild coarse echotexture. Small focal area of decreased echogenicity with irr egular borders in the mid lateral testicle measures 5 x 4 mm. There is diffuse moderate scrotal wall thickening. Very small hydrocele. Normal color Doppler is present throughout. Systolic and diastolic velocities are both present. Small hydrocele. Right epididymis: Epididymis appears normal. Prominent vessels along the inguinal canal. Left testicle: 3.0 cm x 2.1 cm x 2.5 cm. Normal sized testicle with mild increased vascularity. No mass identified. There is marked diffuse scrotal wall thickening. Marked increased vascularity wit hin the LEFT scrotum probably representing a varicocele. No significant hydrocele. Left epididymis: Normal epididymis with no increased vascularity. US/US scrotum [id number] IMPRESSION: 1. Diffuse scrotal wall thickening. 2. Mild increased vascularity within the LEFT testicle suggesting a mild orchi tis. 3. Bilateral varicoceles. 4. Hypoechoic area measuring 5 x 4 mm in the lateral RIGHT testicle is very no nspecific at this time. May be from a prior ischemic insult or part of the norm al rete testes or early neoplasm. Recommend follow-up scrotal ultrasound in 3 m [facility].
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
--- NOTE | 2021-02-15 18:23 | P.PN_ITS ---
Subjective Subjective: Interval history: Requested urology consult for testicular mass and orchitis Continue Zosyn No sign of testicular torsion Patient is still complaining of testicular pain on left side Complaining of generalized body ache Requested catalytic case operator to apply for director financial analysis he will need Truvada for hepatitis B for at least a year Follow-up with [facility] gagan and Dr. Cook Patient endorsed that his brother got diagnosed with testicular cancer and he had bilateral orchiectomy Requested syphilis, gonorrhea, chlamydia panel will give him azithromycin 1 g PO and ceftriaxone to 50 mg IM x1 Vitals/I&O/Wt Last Vital Signs Temp 99.3 F 02/15/21 15:16 Pulse 89 02/15/21 15:16 Resp 18 02/15/21 15:48 BP 139/84 02/15/21 15:16 Pulse Ox 97 02/15/21 15:16 02/15/21 02/15/21 02/15/21 06:59 14:59 22:59 Intake Total 290 / 1870 1250 / 1250 50 / 1300 Output Total 900 / 900 Balance -610 / 970 1250 / 1250 50 / 1300 Weight last 48 hrs Weight 69.201 kg Physical Exam Narrative: EXAM NARRATIVE: Patient was laying supine however endorses pain in distress on movement because of left-sided testicular pain No active varicocele found when he stood up however pain gets better with lifting of his left testes Soft abdomen, hepatomegaly Nonicteric S1, S2 No acute respiratory distress EOMI, PERRLA In distress because of pain Data : 02/15/21 05:10 02/15/21 05:10 Micro: Microbiology 02/13/21 16:20 Blood Culture - Preliminary Blood NEGATIVE TO DATE 02/13/21 16:24 Blood Culture - Preliminary Blood NEGATIVE TO DATE A&P Assessment and plan (1) Testicular mass: Status: Acute (2) Orchitis: Status: Acute (3) Hepatitis B: Status: Acute (4) Liver nodule: Status: Acute (5) Abdominal pain: Status: Acute (6) Constipated: Status: Acute (7) Methamphetamine use: Status: Acute (8) Transaminitis: Status: Acute (9) Leukocytosis: Status: Acute Additional A&P Information Hepatitis B HIV panel negative Requested HBV DNA panel manager business banking updated to plan for director financial analysis to get him approved for Truvada for at least a year, paperwork signed He will need [facility] clinic and follow-up with Dr. Cook Most likely this is a chronic state of hepatitis B considering low albumin Left-orchitis Ceftriaxone 250 mg IM x1, p.o. 1 g azithromycin x1 Check syphilis HIV panel negative Requested gonorrhea chlamydia panel Right-sided testicular mass Dr. Gordon to see him today Concern for malignancy Family history Father Alpha-fetoprotein Mass on liver That was found on ultrasound however CT abdomen did not show such changes, patient refused triple phase liver CT scan, kindly reevaluate in the morning Constipated: Relieved with bowel regimen with enema Full code Regular diet Lovenox for DVT prophylaxis Attestations Medical Necessity Statement*: Continue medical management for above-mentioned reason Time Spent in Patient Care: 16 - 35 minutes Coding Level of Care Code Acute Mechanical Detailer for candice Fwd Diagnoses Testicular mass N50.89 Orchitis N45.2 Hepatitis B B19.10 Liver nodule K76.89 Abdominal pain R10.9 Constipated K59.00 Methamphetamine use F15.10 Transaminitis R74.01 Leukocytosis D72.829
[2021-02-15] MEDS: azithromycin 250 mg Tablet 1000 MG PO (19:53)
[2021-02-15 21:09] LABS: Rapid Plasma Reagin Syphilis Nonreactive (Nonreactive)
[2021-02-15 21:12] LABS: Quest SARS-CoV-2 RNA NOT DETECTED (NOT DETECTED)
[2021-02-16] VITALS (7 sets, daily range): BP systolic 136–146; BP diastolic 82–91; PULSE 75–96; RESP 16–18; TEMP 36.7–37; O2SAT 93–97
[2021-02-16] MEDS: oxyCODONE 5 mg IR Tab/Cap PO (01:10)
[2021-02-16] MEDS: sodium chloride 0.9% 1,000 ML 75 ML IV (02:29)
[2021-02-16 05:09] LABS: Basophils # 0.1 10^3/uL (0.0-0.1); Basophils % 0.5 %; Eosinophils # 1.6 10^3/uL (0.0-0.8); Eosinophils % 9.2 %; Hemoglobin 10.2 g/dL (11.7-16.6); Lymphocytes % 6.1 %; Mean Corpuscular HGB Conc 32.9 g/dL (30.0-36.0); Mean Corpuscular Hemoglobin 30.4 pg (28.0-34.0); Mean Corpuscular Volume 92.5 fl (80-94); Mean Platelet Volume 9.1 fL (7.4-10.4); Monocytes # 1.3 10^3/uL (0.2-0.9); Monocytes % 7.6 %; Neutrophils # 12.55 10^3/uL (1.8-7.7); Neutrophils % 74.8 %; Nucleated Red Blood Cells % 0 %; Platelet Count 250 10^3/cmm (130-400); Red Blood Count 3.35 10^6/uL (4.1-5.3); Red Cell Distribution Width 14.5 % (12.1-15.1); White Blood Count 16.8 10^3/uL (4.0-10.0)
[2021-02-16 05:32] LABS: Anion Gap 12.6 (5-19); Blood Urea Nitrogen 15 mg/dL (6-20); Calcium 7.6 mg/dL (8.5-10.5); Carbon Dioxide 26 mmol/L (22-29); Chloride 97 mmol/L (98-107); Creatinine Clr Calc Pharmacy 74.6439; Glomerular Filtration Rate 64.6 mL/min (90-130); Glucose 90 mg/dL (65-115); Osmolality Calculated 274 mOsm/kg (285-295); Potassium 3.6 mmol/L (3.5-5.1); Sodium 132 mmol/L (136-145)
[2021-02-16] MEDS: piperacillin-tazobactam 3.375 GM in sodium chloride 0.9% (plus) 50 ML IV (05:47)
[2021-02-16] MEDS: doxycycline 100 mg Tablet PO (09:41)
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
--- NOTE | 2021-02-16 12:31 | PC.NURSE ---
patient showered this AM and tolerated well. upon AM assessment patient was asking when he was going to be discharged. patient verbalized understanding of discharge instructions, home medications and follow up appointments. New prescriptions were delivered to patients bedside, IV removed, and patient wheeled to entrance
[2021-02-16 13:56] LABS: Hepatitis B Envelope Antigen REACTIVE (NON-REACTIVE)
--- NOTE | 2021-02-19 08:34 | PC.SOCIAL ---
discharge follow up call made, phone number listed has a busy signal. Other numbers listed unable to leave message and one number for mother was the wrong number.
--- NOTE | 2021-03-01 16:33 | PC.SOCIAL ---
Was contacted by [facility] regarding Truvada medication.This was approved however this medication is for HIV. Patient did not have HIV per records. Called and discussed with Dr Mullen and he will try to reach patient. Patient will need to follow up with Dr Cook. Will follow up once more information obtained by provider. Currently patient is scheduled to see Dr Cook on 03/11/2021. Per [facility] pt assistance pt did not want to use mail order pharmacy for Truvada and wanted to fill at retail but this information needs to be clarified prior to proceeding. Dr Mullen will update this nurse if anything further needed to be done after attempting to reach patient.
== END 2021-02-16 12:37 | disposition home or self-care (01) | DRG 442 ==
LOC: ER 15:11 → MEDSURG 19:02
PROVIDERS: Admitting Provider Internal Medicine; Emergency Provider Emergency Medicine; Visit Provider Internal Medicine
DX: B18.1 Chronic viral hepatitis B without delta-agent (principal); N10 Acute pyelonephritis; F15.90 Other stimulant use, unspecified, uncomplicated; F12.90 Cannabis use, unspecified, uncomplicated; J44.9 Chronic obstructive pulmonary disease, unspecified; F17.210 Nicotine dependence, cigarettes, uncomplicated; R16.0 Hepatomegaly, not elsewhere classified; K59.03 Drug induced constipation; T40.605A Adverse effect of unspecified narcotics, initial encounter; N45.3 Epididymo-orchitis; N50.9 Disorder of male genital organs, unspecified
CPT/HCPCS: 36415; 74176; 76870; 80048; 80053; 81003; 82105; 82140; 82803; 83605; 83690; 83735; 84145; 85025; 85610; 85730; 86140; 86592; 86704; 86705; 86706; 86709; 86803; 86850; 86900; 87040; 87340; 87350; 87426; 87506; 87517; 87635; 94640; 96365; 96367; 96372; 96375; 99285; J0692; J0696; J1650; J2543; J3010; J7030; Q0144; S0030

== ENCOUNTER 2021-03-01 18:55 | Inpatient (IN) | payer MEDICAID, SELFPAY ==
[2021-03-01 19:05] VITALS: BP 129/93; PULSE 133; RESP 22; TEMP 36.8; O2SAT 98
--- NOTE | 2021-03-01 21:30 | W.ED.NAVMDI ---
Documented by User: Jonh Moran MD 03/04/21 04:29 HPI - Nausea/Vomiting/Diarrhea General: Chief complaint: ER Hold Stated complaint: NAUSEA Time Seen by Provider: 03/01/21 21:30 History of Present Illness: HPI Narrative: Mr. Orourke is a 50-year-old gentleman with history of hepatitis B and substance abuse who presents emergency department due to hematemesis. The exact course of his symptoms is somewhat unclear as he is ill-appearing and has recurrent vomiting without bright red blood. Apparently this for going on for a number of days. It is unclear whether vomiting occurred first and then hematemesis or hematemesis was noted initially. He does endorse a history of similar. He has generalized malaise. He is currently on doxycycline for somewhat unclear reasons. Overall the course of symptoms has been was worsening. History is otherwise limited by mental status change. Review of Systems General: Reports: ROS unobtainable due to mental status PFS ED PFSH: Medical History (Updated 03/02/21 @ 08:36 by Hiro Delaney MD) Abdominal pain Abdominal pain Acute pyelonephritis Broken clavicle Cardiomyopathy Constipated COPD (chronic obstructive pulmonary disease) Hepatitis B Leukocytosis Liver nodule Marijuana use Methamphetamine use Orchitis S/P ORIF (open reduction internal fixation) fracture Clavicle [address] Goodwin Left clavicle Testicular mass Tobacco dependency Transaminitis Surgical History No pertinent past surgical history Social History (Updated 03/02/21 @ 08:21 by Hiro Delaney MD) Smoking and tobacco status: current every day smoker Alcohol intake: never Physical Exam Narrative: EXAM NARRATIVE: GENERAL/CONSTITUTIONAL -ill-appearing, no acute distress Eyes - PERRL, no conjunctival injection, mild yellowing of sclera ENMT - Atraumatic external nose and ears. Dry mucous membranes NECK - supple. trachea midline. No meningeal signs CARDIOVASCULAR -tachycardic rate and regular rhythm. Warm well perfused extremities RESPIRATORY -clear to auscultation bilaterally. No retractions or accessory muscle use. ABDOMEN/GI -tenderness palpation in the epigastric region. Nondistended. No tenderness to percussion or evidence of peritonitis MSK - Extremities without obvious deformity or tenderness to palpation SKIN - Warm, Dry. Scattered scabs. No vesicular rashes. NEURO - alert but encephalopathic, he is oriented. Moves all extremities equally. PSYCH -impaired memory and cognition Course ED course: - Patient was seen and evaluated by me at bedside - Patient placed on cardiac monitors, IV access obtained - Initial evaluation notable for ill appearance, patient appears encephalopathic. Reportedly he had small volume coffee-ground emesis in the waiting room. He had large volume bilious slightly bloody emesis shortly after arrival. Patient appears to be protecting airway at this time. History is somewhat limited. -Fluids, antibiotic, given history of hepatitis B and liver abnormality treatment for GI bleed including octreotide ordered. - Labs notable for marked derangements. Patient has a leukocytosis, hemoglobin stable at this time. Metabolic panel notable for hyponatremia and hyper chloride EMEA, bicarb mildly decreased, anion gap elevated. Patient's creatinine is elevated at 4.2 with elevated BUN. Lactate is markedly elevated though this did improve mildly with fluid resuscitation. Transaminitis present. Although T bili is only mildly elevated INR is well above normal range. Patient's MELD-NA at this time is 65-66%. - Rasheed catheter placed and with volume resuscitation patient actually had fairly decent urine output initially -Patient was unfortunately taken for imaging prior to results of creatinine so patient was given contrast. Imaging notable for no acute intercranial process to explain patient's symptoms. CT imaging notable for esophageal thickening. Other findings similar to prior including abnormal enhancement of kidneys and liver. - Upon serial reexamination after treatment the patient was similar, he remains critically ill. He has not had repeat episodes of emesis or hematemesis. - Based on patient's need for hepatology and significant LUÍS we will attempt to transfer the patient however during my shift there are no available beds so far. - Patient care handed off to daytime physician pending outside transfer versus acceptance by hospitalist service. Vital Signs: Vital signs: Vital Signs Temperature 97.5 F L 03/03/21 19:29 Pulse Rate 110 H 03/04/21 00:00 Respiratory Rate 18 03/04/21 03:52 Blood Pressure 132/106 03/04/21 00:00 Pulse Oximetry 100 03/04/21 03:52 MDM - Nausea/Vomiting/Diarrhea Lab Data: Labs: Lab Results 03/01/21 03/01/21 03/01/21 Range/Units 22:00 22:00 22:00 WBC 23.8 H (4.0-10.0) 10^3/ uL RBC 3.94 L (4.1-5.3) 10^6/u L Hgb 12.1 (11.7-16.6) g/dL Hct 37.6 L (42.0-52.0) % MCV 95.4 H (80-94) fl MCH 30.7 (28.0-34.0) pg MCHC 32.2 (30.0-36.0) g/dL RDW 17.0 H (12.1-15.1) % Plt Count 298 (130-400) 10^3/c mm MPV 9.8 (7.4-10.4) fL Neut % (Auto) 80.8 % Lymph % (Auto) 9.5 % [place] % (Auto) 5.6 % Eos % (Auto) 0.0 % Baso % (Auto) 0.4 % Neut # (Auto) 19.23 H (1.8-7.7) 10^3/u L Lymph # (Auto) 2.3 (0.8-4.8) 10^3/u L [place] # (Auto) 1.3 H (0.2-0.9) 10^3/u L Eos # (Auto) 0.0 (0.0-0.8) 10^3/u L Baso # (Auto) 0.1 (0.0-0.1) 10^3/u L Nucleated RBC % (a uto) 0.1 % Nucleated RBCs # 0.0 /100WBC PT (12.1-14.9) SECO NDS INR (0.8-1.2) Specimen Type Sample Site ABG pH (7.35-7.45) ABG pCO2 (35-45) mmHg ABG pO2 (80.0-100.0) mmH g ABG HCO3 (22-26) mmol/L ABG Base Excess (-2.0-2.0) mmol/ L Zhou Test Hematocrit (42-52) % O2 Delivery Device FiO2 % Specimen Drawn By Wire Drawing Machine Tender ID Sodium 124 L (136-145) mmol/L Potassium 4.5 (3.5-5.1) mmol/L Chloride 82 L (98-107) mmol/L Carbon Dioxide 20 L (22-29) mmol/L Anion Gap 26.5 H (5-19) BUN 77 H (6-20) mg/dL Creatinine 4.2 H (0.7-1.2) mg/dL GFR Calculation 15.2 L (90-130) mL/min Glucose 116 H (65-115) mg/dL POC Glucose (70-110) mg/dL Calculated Osmolal ity 282 L (285-295) mOsm/k g Lactate 6.5 H* (0.5-2.2) mmol/L Calcium 8.1 L (8.5-10.5) mg/dL Total Bilirubin 1.4 H (0.15-1.2) mg/dL Direct Bilirubin (0.00-0.30) mg/d L AST 1643 H (0-40) U/L ALT 901 H (0-41) U/L Alkaline Phosphata se 311 H (40-130) IU/L Ammonia (16-60) umol/L Creatine Kinase (39-308) U/L Total Protein 8.0 (6.6-8.7) g/dL Albumin 2.5 L (3.5-5.2) g/dL Globulin 5.5 H (1.3-4.6) g/dL Lipase 62 H (13-60) U/L TSH 1.50 (0.27-4.20) uIU/ mL Urine Color (Yellow) Urine Appearance (CLEAR) Urine pH (5-7) Ur Specific Gravit y (1.005-1.030) Urine Protein (Negative) Urine Glucose (UA) (Normal) Urine Ketones (Negative) Urine Blood (Negative) Urine Nitrate (Negative) Urine Bilirubin (Negative) Urine Urobilinogen (Negative) mg/dL Ur Leukocyte Caitie ase (Negative) Urine RBC (0-2) /hpf Urine WBC (0-5) /hpf Ur Squamous Epith Cells (0-5) /hpf Amorphous Sediment /hpf Urine Bacteria (NONE) /hpf Ur Random Sodium mmol/L Urine Creatinine (39-259) mg/dL Salicylates < 0.3 L (3-10) mg/dL Urine Opiates Scre en (Negative) ng/mL Acetaminophen < 5.0 L (10-30) ug/mL Ur Barbiturates Sc reen (Negative) ng/mL Ur Phencyclidine S crn (Negative) ng/mL Ur Amphetamines Sc reen (Negative) ng/mL U Benzodiazepines Scrn (Negative) ng/mL Urine Cocaine Scre en (Negative) ng/mL U Marijuana (THC) Screen (Negative) ng/mL Ethyl Alcohol < 10 (0-10) mg/dL Hepatitis A IgM Ab (Nonreactive) Hep Bs Antigen (Nonreactive) Hep B Core IgM Ab (Nonreactive) Hepatitis C Antibo dy (Nonreactive) SARS-CoV-2 Ag (Rap id) (Negative) Blood Type Rho(D) Type Antibody Screen 03/01/21 03/01/21 03/01/21 Range/Units 22:00 23:00 23:00 WBC (4.0-10.0) 10^3/ uL RBC (4.1-5.3) 10^6/u L Hgb (11.7-16.6) g/dL Hct (42.0-52.0) % MCV (80-94) fl MCH (28.0-34.0) pg MCHC (30.0-36.0) g/dL RDW (12.1-15.1) % Plt Count (130-400) 10^3/c mm MPV (7.4-10.4) fL Neut % (Auto) % Lymph % (Auto) % [place] % (Auto) % Eos % (Auto) % Baso % (Auto) % Neut # (Auto) (1.8-7.7) 10^3/u L Lymph # (Auto) (0.8-4.8) 10^3/u L [place] # (Auto) (0.2-0.9) 10^3/u L Eos # (Auto) (0.0-0.8) 10^3/u L Baso # (Auto) (0.0-0.1) 10^3/u L Nucleated RBC % (a uto) % Nucleated RBCs # /100WBC PT 30.60 H (12.1-14.9) SECO NDS INR 2.88 H (0.8-1.2) Specimen Type Sample Site ABG pH (7.35-7.45) ABG pCO2 (35-45) mmHg ABG pO2 (80.0-100.0) mmH g ABG HCO3 (22-26) mmol/L ABG Base Excess (-2.0-2.0) mmol/ L Zhou Test Hematocrit (42-52) % O2 Delivery Device FiO2 % Specimen Drawn By Wire Drawing Machine Tender ID Sodium (136-145) mmol/L Potassium (3.5-5.1) mmol/L Chloride (98-107) mmol/L Carbon Dioxide (22-29) mmol/L Anion Gap (5-19) BUN (6-20) mg/dL Creatinine (0.7-1.2) mg/dL GFR Calculation (90-130) mL/min Glucose (65-115) mg/dL POC Glucose (70-110) mg/dL Calculated Osmolal ity (285-295) mOsm/k g Lactate (0.5-2.2) mmol/L Calcium (8.5-10.5) mg/dL Total Bilirubin (0.15-1.2) mg/dL Direct Bilirubin (0.00-0.30) mg/d L AST (0-40) U/L ALT (0-41) U/L Alkaline Phosphata se (40-130) IU/L Ammonia (16-60) umol/L Creatine Kinase 559 H* (39-308) U/L Total Protein (6.6-8.7) g/dL Albumin (3.5-5.2) g/dL Globulin (1.3-4.6) g/dL Lipase (13-60) U/L TSH (0.27-4.20) uIU/ mL Urine Color (Yellow) Urine Appearance (CLEAR) Urine pH (5-7) Ur Specific Gravit y (1.005-1.030) Urine Protein (Negative) Urine Glucose (UA) (Normal) Urine Ketones (Negative) Urine Blood (Negative) Urine Nitrate (Negative) Urine Bilirubin (Negative) Urine Urobilinogen (Negative) mg/dL Ur Leukocyte Caitie ase (Negative) Urine RBC (0-2) /hpf Urine WBC (0-5) /hpf Ur Squamous Epith Cells (0-5) /hpf Amorphous Sediment /hpf Urine Bacteria (NONE) /hpf Ur Random Sodium mmol/L Urine Creatinine (39-259) mg/dL Salicylates (3-10) mg/dL Urine Opiates Scre en (Negative) ng/mL Acetaminophen (10-30) ug/mL Ur Barbiturates Sc reen (Negative) ng/mL Ur Phencyclidine S crn (Negative) ng/mL Ur Amphetamines Sc reen (Negative) ng/mL U Benzodiazepines Scrn (Negative) ng/mL Urine Cocaine Scre en (Negative) ng/mL U Marijuana (THC) Screen (Negative) ng/mL Ethyl Alcohol (0-10) mg/dL Hepatitis A IgM Ab (Nonreactive) Hep Bs Antigen (Nonreactive) Hep B Core IgM Ab (Nonreactive) Hepatitis C Antibo dy (Nonreactive) SARS-CoV-2 Ag (Rap id) (Negative) Blood Type AB Positive Rho(D) Type Positive Antibody Screen Negative 03/01/21 03/01/21 03/02/21 Range/Units 23:00 23:32 00:15 WBC (4.0-10.0) 10^3/ uL RBC (4.1-5.3) 10^6/u L Hgb (11.7-16.6) g/dL Hct (42.0-52.0) % MCV (80-94) fl MCH (28.0-34.0) pg MCHC (30.0-36.0) g/dL RDW (12.1-15.1) % Plt Count (130-400) 10^3/c mm MPV (7.4-10.4) fL Neut % (Auto) % Lymph % (Auto) % [place] % (Auto) % Eos % (Auto) % Baso % (Auto) % Neut # (Auto) (1.8-7.7) 10^3/u L Lymph # (Auto) (0.8-4.8) 10^3/u L [place] # (Auto) (0.2-0.9) 10^3/u L Eos # (Auto) (0.0-0.8) 10^3/u L Baso # (Auto) (0.0-0.1) 10^3/u L Nucleated RBC % (a uto) % Nucleated RBCs # /100WBC PT (12.1-14.9) SECO NDS INR (0.8-1.2) Specimen Type Art Sample Site Left rad ABG pH 7.45 (7.35-7.45) ABG pCO2 31.0 L (35-45) mmHg ABG pO2 91.0 (80.0-100.0) mmH g ABG HCO3 22.0 (22-26) mmol/L ABG Base Excess -1.4 (-2.0-2.0) mmol/ L Zhou Test Pos Hematocrit 31.0 L (42-52) % O2 Delivery Device Ra FiO2 21.0 % Specimen Drawn By [employer] Wire Drawing Machine Tender ID Pe Sodium (136-145) mmol/L Potassium (3.5-5.1) mmol/L Chloride (98-107) mmol/L Carbon Dioxide (22-29) mmol/L Anion Gap (5-19) BUN (6-20) mg/dL Creatinine (0.7-1.2) mg/dL GFR Calculation (90-130) mL/min Glucose (65-115) mg/dL POC Glucose (70-110) mg/dL Calculated Osmolal ity (285-295) mOsm/k g Lactate (0.5-2.2) mmol/L Calcium (8.5-10.5) mg/dL Total Bilirubin (0.15-1.2) mg/dL Direct Bilirubin (0.00-0.30) mg/d L AST (0-40) U/L ALT (0-41) U/L Alkaline Phosphata se (40-130) IU/L Ammonia 63 H (16-60) umol/L Creatine Kinase (39-308) U/L Total Protein (6.6-8.7) g/dL Albumin (3.5-5.2) g/dL Globulin (1.3-4.6) g/dL Lipase (13-60) U/L TSH (0.27-4.20) uIU/ mL Urine Color Yellow (Yellow) Urine Appearance Clear (CLEAR) Urine pH 5 (5-7) Ur Specific Gravit y 1.015 (1.005-1.030) Urine Protein 1+ H (Negative) Urine Glucose (UA) Norm (Normal) Urine Ketones Negative (Negative) Urine Blood 3+ H (Negative) Urine Nitrate Negative (Negative) Urine Bilirubin Neg (Negative) Urine Urobilinogen Norm (Negative) mg/dL Ur Leukocyte Caitie ase Negative (Negative) Urine RBC 10-15 H (0-2) /hpf Urine WBC 0-4 H (0-5) /hpf Ur Squamous Epith Cells 0-4 H (0-5) /hpf Amorphous Sediment 1+ /hpf Urine Bacteria Trace (NONE) /hpf Ur Random Sodium mmol/L Urine Creatinine (39-259) mg/dL Salicylates (3-10) mg/dL Urine Opiates Scre en (Negative) ng/mL Acetaminophen (10-30) ug/mL Ur Barbiturates Sc reen (Negative) ng/mL Ur Phencyclidine S crn (Negative) ng/mL Ur Amphetamines Sc reen (Negative) ng/mL U Benzodiazepines Scrn (Negative) ng/mL Urine Cocaine Scre en (Negative) ng/mL U Marijuana (THC) Screen (Negative) ng/mL Ethyl Alcohol (0-10) mg/dL Hepatitis A IgM Ab (Nonreactive) Hep Bs Antigen (Nonreactive) Hep B Core IgM Ab (Nonreactive) Hepatitis C Antibo dy (Nonreactive) SARS-CoV-2 Ag (Rap id) (Negative) Blood Type Rho(D) Type Antibody Screen 03/02/21 03/02/21 03/02/21 Range/Units 00:15 00:15 00:50 WBC (4.0-10.0) 10^3/ uL RBC (4.1-5.3) 10^6/u L Hgb (11.7-16.6) g/dL Hct (42.0-52.0) % MCV (80-94) fl MCH (28.0-34.0) pg MCHC (30.0-36.0) g/dL RDW (12.1-15.1) % Plt Count (130-400) 10^3/c mm MPV (7.4-10.4) fL Neut % (Auto) % Lymph % (Auto) % [place] % (Auto) % Eos % (Auto) % Baso % (Auto) % Neut # (Auto) (1.8-7.7) 10^3/u L Lymph # (Auto) (0.8-4.8) 10^3/u L [place] # (Auto) (0.2-0.9) 10^3/u L Eos # (Auto) (0.0-0.8) 10^3/u L Baso # (Auto) (0.0-0.1) 10^3/u L Nucleated RBC % (a uto) % Nucleated RBCs # /100WBC PT (12.1-14.9) SECO NDS INR (0.8-1.2) Specimen Type Sample Site ABG pH (7.35-7.45) ABG pCO2 (35-45) mmHg ABG pO2 (80.0-100.0) mmH g ABG HCO3 (22-26) mmol/L ABG Base Excess (-2.0-2.0) mmol/ L Zhou Test Hematocrit (42-52) % O2 Delivery Device FiO2 % Specimen Drawn By Wire Drawing Machine Tender ID Sodium (136-145) mmol/L Potassium (3.5-5.1) mmol/L Chloride (98-107) mmol/L Carbon Dioxide (22-29) mmol/L Anion Gap (5-19) BUN (6-20) mg/dL Creatinine (0.7-1.2) mg/dL GFR Calculation (90-130) mL/min Glucose (65-115) mg/dL POC Glucose (70-110) mg/dL Calculated Osmolal ity (285-295) mOsm/k g Lactate (0.5-2.2) mmol/L Calcium (8.5-10.5) mg/dL Total Bilirubin (0.15-1.2) mg/dL Direct Bilirubin (0.00-0.30) mg/d L AST (0-40) U/L ALT (0-41) U/L Alkaline Phosphata se (40-130) IU/L Ammonia (16-60) umol/L Creatine Kinase (39-308) U/L Total Protein (6.6-8.7) g/dL Albumin (3.5-5.2) g/dL Globulin (1.3-4.6) g/dL Lipase (13-60) U/L TSH (0.27-4.20) uIU/ mL Urine Color (Yellow) Urine Appearance (CLEAR) Urine pH (5-7) Ur Specific Gravit y (1.005-1.030) Urine Protein (Negative) Urine Glucose (UA) (Normal) Urine Ketones (Negative) Urine Blood (Negative) Urine Nitrate (Negative) Urine Bilirubin (Negative) Urine Urobilinogen (Negative) mg/dL Ur Leukocyte Caitie ase (Negative) Urine RBC (0-2) /hpf Urine WBC (0-5) /hpf Ur Squamous Epith Cells (0-5) /hpf Amorphous Sediment /hpf Urine Bacteria (NONE) /hpf Ur Random Sodium 19 mmol/L Urine Creatinine 67 (39-259) mg/dL Salicylates (3-10) mg/dL Urine Opiates Scre en Negative (Negative) ng/mL Acetaminophen (10-30) ug/mL Ur Barbiturates Sc reen Negative (Negative) ng/mL Ur Phencyclidine S crn Negative (Negative) ng/mL Ur Amphetamines Sc reen Positive H (Negative) ng/mL U Benzodiazepines Scrn Negative (Negative) ng/mL Urine Cocaine Scre en Negative (Negative) ng/mL U Marijuana (THC) Screen Positive H (Negative) ng/mL Ethyl Alcohol (0-10) mg/dL Hepatitis A IgM Ab (Nonreactive) Hep Bs Antigen (Nonreactive) Hep B Core IgM Ab (Nonreactive) Hepatitis C Antibo dy (Nonreactive) SARS-CoV-2 Ag (Rap id) Negative (Negative) Blood Type Rho(D) Type Antibody Screen 03/02/21 03/02/21 03/02/21 Range/Units 01:27 04:00 04:00 WBC (4.0-10.0) 10^3/ uL RBC (4.1-5.3) 10^6/u L Hgb (11.7-16.6) g/dL Hct (42.0-52.0) % MCV (80-94) fl MCH (28.0-34.0) pg MCHC (30.0-36.0) g/dL RDW (12.1-15.1) % Plt Count (130-400) 10^3/c mm MPV (7.4-10.4) fL Neut % (Auto) % Lymph % (Auto) % [place] % (Auto) % Eos % (Auto) % Baso % (Auto) % Neut # (Auto) (1.8-7.7) 10^3/u L Lymph # (Auto) (0.8-4.8) 10^3/u L [place] # (Auto) (0.2-0.9) 10^3/u L Eos # (Auto) (0.0-0.8) 10^3/u L Baso # (Auto) (0.0-0.1) 10^3/u L Nucleated RBC % (a uto) % Nucleated RBCs # /100WBC PT (12.1-14.9) SECO NDS INR (0.8-1.2) Specimen Type Sample Site ABG pH (7.35-7.45) ABG pCO2 (35-45) mmHg ABG pO2 (80.0-100.0) mmH g ABG HCO3 (22-26) mmol/L ABG Base Excess (-2.0-2.0) mmol/ L Zhou Test Hematocrit (42-52) % O2 Delivery Device FiO2 % Specimen Drawn By Wire Drawing Machine Tender ID Sodium 129 L (136-145) mmol/L Potassium 4.5 (3.5-5.1) mmol/L Chloride 91 L (98-107) mmol/L Carbon Dioxide 16 L (22-29) mmol/L Anion Gap 26.5 H (5-19) BUN 85 H* (6-20) mg/dL Creatinine 4.1 H (0.7-1.2) mg/dL GFR Calculation 15.7 L (90-130) mL/min Glucose 60 L (65-115) mg/dL POC Glucose (70-110) mg/dL Calculated Osmolal ity 292 (285-295) mOsm/k g Lactate 5.4 H* (0.5-2.2) mmol/L Calcium 7.5 L (8.5-10.5) mg/dL Total Bilirubin 1.5 H (0.15-1.2) mg/dL Direct Bilirubin 1.30 H (0.00-0.30) mg/d L AST 1104 H (0-40) U/L ALT 785 H (0-41) U/L Alkaline Phosphata se 251 H (40-130) IU/L Ammonia (16-60) umol/L Creatine Kinase 476 H* (39-308) U/L Total Protein 6.8 (6.6-8.7) g/dL Albumin 2.0 L (3.5-5.2) g/dL Globulin 4.8 H (1.3-4.6) g/dL Lipase (13-60) U/L TSH (0.27-4.20) uIU/ mL Urine Color (Yellow) Urine Appearance (CLEAR) Urine pH (5-7) Ur Specific Gravit y (1.005-1.030) Urine Protein (Negative) Urine Glucose (UA) (Normal) Urine Ketones (Negative) Urine Blood (Negative) Urine Nitrate (Negative) Urine Bilirubin (Negative) Urine Urobilinogen (Negative) mg/dL Ur Leukocyte Caitie ase (Negative) Urine RBC (0-2) /hpf Urine WBC (0-5) /hpf Ur Squamous Epith Cells (0-5) /hpf Amorphous Sediment /hpf Urine Bacteria (NONE) /hpf Ur Random Sodium mmol/L Urine Creatinine (39-259) mg/dL Salicylates (3-10) mg/dL Urine Opiates Scre en (Negative) ng/mL Acetaminophen (10-30) ug/mL Ur Barbiturates Sc reen (Negative) ng/mL Ur Phencyclidine S crn (Negative) ng/mL Ur Amphetamines Sc reen (Negative) ng/mL U Benzodiazepines Scrn (Negative) ng/mL Urine Cocaine Scre en (Negative) ng/mL U Marijuana (THC) Screen (Negative) ng/mL Ethyl Alcohol (0-10) mg/dL Hepatitis A IgM Ab (Nonreactive) Hep Bs Antigen (Nonreactive) Hep B Core IgM Ab (Nonreactive) Hepatitis C Antibo dy (Nonreactive) SARS-CoV-2 Ag (Rap id) (Negative) Blood Type Rho(D) Type Antibody Screen 03/02/21 03/02/21 03/02/21 Range/Units 04:00 08:30 09:25 WBC 22.6 H (4.0-10.0) 10^3/ uL RBC 3.20 L (4.1-5.3) 10^6/u L Hgb 9.9 L (11.7-16.6) g/dL Hct 31.1 L (42.0-52.0) % MCV 97.2 H (80-94) fl MCH 30.9 (28.0-34.0) pg MCHC 31.8 (30.0-36.0) g/dL RDW 17.2 H (12.1-15.1) % Plt Count 214 (130-400) 10^3/c mm MPV 10.0 (7.4-10.4) fL Neut % (Auto) 88.3 % Lymph % (Auto) 6.3 % [place] % (Auto) 2.5 % Eos % (Auto) 0.0 % Baso % (Auto) 0.2 % Neut # (Auto) 19.98 H (1.8-7.7) 10^3/u L Lymph # (Auto) 1.4 (0.8-4.8) 10^3/u L [place] # (Auto) 0.6 (0.2-0.9) 10^3/u L Eos # (Auto) 0.0 (0.0-0.8) 10^3/u L Baso # (Auto) 0.1 (0.0-0.1) 10^3/u L Nucleated RBC % (a uto) 0.2 % Nucleated RBCs # 0.1 /100WBC PT (12.1-14.9) SECO NDS INR (0.8-1.2) Specimen Type Sample Site ABG pH (7.35-7.45) ABG pCO2 (35-45) mmHg ABG pO2 (80.0-100.0) mmH g ABG HCO3 (22-26) mmol/L ABG Base Excess (-2.0-2.0) mmol/ L Zhou Test Hematocrit (42-52) % O2 Delivery Device FiO2 % Specimen Drawn By Wire Drawing Machine Tender ID Sodium (136-145) mmol/L Potassium (3.5-5.1) mmol/L Chloride (98-107) mmol/L Carbon Dioxide (22-29) mmol/L Anion Gap (5-19) BUN (6-20) mg/dL Creatinine (0.7-1.2) mg/dL GFR Calculation (90-130) mL/min Glucose (65-115) mg/dL POC Glucose 49 L (70-110) mg/dL Calculated Osmolal ity (285-295) mOsm/k g Lactate (0.5-2.2) mmol/L Calcium (8.5-10.5) mg/dL Total Bilirubin (0.15-1.2) mg/dL Direct Bilirubin (0.00-0.30) mg/d L AST (0-40) U/L ALT (0-41) U/L Alkaline Phosphata se (40-130) IU/L Ammonia (16-60) umol/L Creatine Kinase (39-308) U/L Total Protein (6.6-8.7) g/dL Albumin (3.5-5.2) g/dL Globulin (1.3-4.6) g/dL Lipase (13-60) U/L TSH (0.27-4.20) uIU/ mL Urine Color (Yellow) Urine Appearance (CLEAR) Urine pH (5-7) Ur Specific Gravit y (1.005-1.030) Urine Protein (Negative) Urine Glucose (UA) (Normal) Urine Ketones (Negative) Urine Blood (Negative) Urine Nitrate (Negative) Urine Bilirubin (Negative) Urine Urobilinogen (Negative) mg/dL Ur Leukocyte Caitie ase (Negative) Urine RBC (0-2) /hpf Urine WBC (0-5) /hpf Ur Squamous Epith Cells (0-5) /hpf Amorphous Sediment /hpf Urine Bacteria (NONE) /hpf Ur Random Sodium mmol/L Urine Creatinine (39-259) mg/dL Salicylates (3-10) mg/dL Urine Opiates Scre en (Negative) ng/mL Acetaminophen < 5.0 L (10-30) ug/mL Ur Barbiturates Sc reen (Negative) ng/mL Ur Phencyclidine S crn (Negative) ng/mL Ur Amphetamines Sc reen (Negative) ng/mL U Benzodiazepines Scrn (Negative) ng/mL Urine Cocaine Scre en (Negative) ng/mL U Marijuana (THC) Screen (Negative) ng/mL Ethyl Alcohol (0-10) mg/dL Hepatitis A IgM Ab (Nonreactive) Hep Bs Antigen (Nonreactive) Hep B Core IgM Ab (Nonreactive) Hepatitis C Antibo dy (Nonreactive) SARS-CoV-2 Ag (Rap id) (Negative) Blood Type Rho(D) Type Antibody Screen 03/02/21 03/02/21 03/02/21 Range/Units 09:25 09:25 09:25 WBC (4.0-10.0) 10^3/ uL RBC (4.1-5.3) 10^6/u L Hgb (11.7-16.6) g/dL Hct (42.0-52.0) % MCV (80-94) fl MCH (28.0-34.0) pg MCHC (30.0-36.0) g/dL RDW (12.1-15.1) % Plt Count (130-400) 10^3/c mm MPV (7.4-10.4) fL Neut % (Auto) % Lymph % (Auto) % [place] % (Auto) % Eos % (Auto) % Baso % (Auto) % Neut # (Auto) (1.8-7.7) 10^3/u L Lymph # (Auto) (0.8-4.8) 10^3/u L [place] # (Auto) (0.2-0.9) 10^3/u L Eos # (Auto) (0.0-0.8) 10^3/u L Baso # (Auto) (0.0-0.1) 10^3/u L Nucleated RBC % (a uto) % Nucleated RBCs # /100WBC PT 35.90 H (12.1-14.9) SECO NDS INR 3.53 H (0.8-1.2) Specimen Type Sample Site ABG pH (7.35-7.45) ABG pCO2 (35-45) mmHg ABG pO2 (80.0-100.0) mmH g ABG HCO3 (22-26) mmol/L ABG Base Excess (-2.0-2.0) mmol/ L Zhou Test Hematocrit (42-52) % O2 Delivery Device FiO2 % Specimen Drawn By Wire Drawing Machine Tender ID Sodium (136-145) mmol/L Potassium (3.5-5.1) mmol/L Chloride (98-107) mmol/L Carbon Dioxide (22-29) mmol/L Anion Gap (5-19) BUN (6-20) mg/dL Creatinine (0.7-1.2) mg/dL GFR Calculation (90-130) mL/min Glucose (65-115) mg/dL POC Glucose (70-110) mg/dL Calculated Osmolal ity (285-295) mOsm/k g Lactate (0.5-2.2) mmol/L Calcium (8.5-10.5) mg/dL Total Bilirubin (0.15-1.2) mg/dL Direct Bilirubin (0.00-0.30) mg/d L AST (0-40) U/L ALT (0-41) U/L Alkaline Phosphata se (40-130) IU/L Ammonia 69 H (16-60) umol/L Creatine Kinase (39-308) U/L Total Protein (6.6-8.7) g/dL Albumin (3.5-5.2) g/dL Globulin (1.3-4.6) g/dL Lipase (13-60) U/L TSH (0.27-4.20) uIU/ mL Urine Color (Yellow) Urine Appearance (CLEAR) Urine pH (5-7) Ur Specific Gravit y (1.005-1.030) Urine Protein (Negative) Urine Glucose (UA) (Normal) Urine Ketones (Negative) Urine Blood (Negative) Urine Nitrate (Negative) Urine Bilirubin (Negative) Urine Urobilinogen (Negative) mg/dL Ur Leukocyte Caitie ase (Negative) Urine RBC (0-2) /hpf Urine WBC (0-5) /hpf Ur Squamous Epith Cells (0-5) /hpf Amorphous Sediment /hpf Urine Bacteria (NONE) /hpf Ur Random Sodium mmol/L Urine Creatinine (39-259) mg/dL Salicylates (3-10) mg/dL Urine Opiates Scre en (Negative) ng/mL Acetaminophen (10-30) ug/mL Ur Barbiturates Sc reen (Negative) ng/mL Ur Phencyclidine S crn (Negative) ng/mL Ur Amphetamines Sc reen (Negative) ng/mL U Benzodiazepines Scrn (Negative) ng/mL Urine Cocaine Scre en (Negative) ng/mL U Marijuana (THC) Screen (Negative) ng/mL Ethyl Alcohol (0-10) mg/dL Hepatitis A IgM Ab Non-reactive (Nonreactive) Hep Bs Antigen Reactive H (Nonreactive) Hep B Core IgM Ab Non-reactive (Nonreactive) Hepatitis C Antibo dy Non-reactive (Nonreactive) SARS-CoV-2 Ag (Rap id) (Negative) Blood Type Rho(D) Type Antibody Screen 03/02/21 03/02/21 Range/Units 10:01 11:48 WBC (4.0-10.0) 10^3/ uL RBC (4.1-5.3) 10^6/u L Hgb (11.7-16.6) g/dL Hct (42.0-52.0) % MCV (80-94) fl MCH (28.0-34.0) pg MCHC (30.0-36.0) g/dL RDW (12.1-15.1) % Plt Count (130-400) 10^3/c mm MPV (7.4-10.4) fL Neut % (Auto) % Lymph % (Auto) % [place] % (Auto) % Eos % (Auto) % Baso % (Auto) % Neut # (Auto) (1.8-7.7) 10^3/u L Lymph # (Auto) (0.8-4.8) 10^3/u L [place] # (Auto) (0.2-0.9) 10^3/u L Eos # (Auto) (0.0-0.8) 10^3/u L Baso # (Auto) (0.0-0.1) 10^3/u L Nucleated RBC % (a uto) % Nucleated RBCs # /100WBC PT (12.1-14.9) SECO NDS INR (0.8-1.2) Specimen Type Sample Site ABG pH (7.35-7.45) ABG pCO2 (35-45) mmHg ABG pO2 (80.0-100.0) mmH g ABG HCO3 (22-26) mmol/L ABG Base Excess (-2.0-2.0) mmol/ L Zhou Test Hematocrit (42-52) % O2 Delivery Device FiO2 % Specimen Drawn By Wire Drawing Machine Tender ID Sodium (136-145) mmol/L Potassium (3.5-5.1) mmol/L Chloride (98-107) mmol/L Carbon Dioxide (22-29) mmol/L Anion Gap (5-19) BUN (6-20) mg/dL Creatinine (0.7-1.2) mg/dL GFR Calculation (90-130) mL/min Glucose (65-115) mg/dL POC Glucose 100 105 (70-110) mg/dL Calculated Osmolal ity (285-295) mOsm/k g Lactate (0.5-2.2) mmol/L Calcium (8.5-10.5) mg/dL Total Bilirubin (0.15-1.2) mg/dL Direct Bilirubin (0.00-0.30) mg/d L AST (0-40) U/L ALT (0-41) U/L Alkaline Phosphata se (40-130) IU/L Ammonia (16-60) umol/L Creatine Kinase (39-308) U/L Total Protein (6.6-8.7) g/dL Albumin (3.5-5.2) g/dL Globulin (1.3-4.6) g/dL Lipase (13-60) U/L TSH (0.27-4.20) uIU/ mL Urine Color (Yellow) Urine Appearance (CLEAR) Urine pH (5-7) Ur Specific Gravit y (1.005-1.030) Urine Protein (Negative) Urine Glucose (UA) (Normal) Urine Ketones (Negative) Urine Blood (Negative) Urine Nitrate (Negative) Urine Bilirubin (Negative) Urine Urobilinogen (Negative) mg/dL Ur Leukocyte Caitie ase (Negative) Urine RBC (0-2) /hpf Urine WBC (0-5) /hpf Ur Squamous Epith Cells (0-5) /hpf Amorphous Sediment /hpf Urine Bacteria (NONE) /hpf Ur Random Sodium mmol/L Urine Creatinine (39-259) mg/dL Salicylates (3-10) mg/dL Urine Opiates Scre en (Negative) ng/mL Acetaminophen (10-30) ug/mL Ur Barbiturates Sc reen (Negative) ng/mL Ur Phencyclidine S crn (Negative) ng/mL Ur Amphetamines Sc reen (Negative) ng/mL U Benzodiazepines Scrn (Negative) ng/mL Urine Cocaine Scre en (Negative) ng/mL U Marijuana (THC) Screen (Negative) ng/mL Ethyl Alcohol (0-10) mg/dL Hepatitis A IgM Ab (Nonreactive) Hep Bs Antigen (Nonreactive) Hep B Core IgM Ab (Nonreactive) Hepatitis C Antibo dy (Nonreactive) SARS-CoV-2 Ag (Rap id) (Negative) Blood Type Rho(D) Type Antibody Screen EKG Data^: EKG 1: Attestation: I personally reviewed and interpreted this EKG as follows: EKG interpretation date: 03/02/21 EKG interpretation time: 01:13 Prior EKG tracings: available for review Interpretation: Twelve-lead EKG shows a regular sinus rhythm at a rate of 125. VT interval 138, QRS duration 120, QTc 458. Indeterminate axis Interpretation: Sinus tachycardia, interventricular conduction delay. Abnormal axis. Critical Care Time Critical Care Time: Critical Care Time: Yes Total Critical Care Time: 80 Attestation: Due to a high probability of clinically significant, possibly life threatening deterioration, the patient required my highest level of attention and preparedness to intervene emergently and I personally spent this critical care time directly and personally managing the patient. This critical care time included obtaining a history; examining the patient; pulse oximetry; ordering and review of laboratory and imaging studies; arranging urgent treatment with development of a management plan; evaluation of patient's response to treatment; frequent reassessment; and, discussions with other providers as applicable. It was exclusive of separately billable procedures. Discharge Plan Discharge Admit Provider: Hiro Delaney Discharge Orders: Discharge Order (Routine); Ordered 03/03/21 Ordered By: Domitila Mullen Coding Level of Care Code ED Pc Maintenance Technician for Chg Fwd Documented by User: Jong Geronimo DO 03/03/21 16:43 HPI - Nausea/Vomiting/Diarrhea General: Chief complaint: ER Hold Stated complaint: NAUSEA Time Seen by Provider: 03/01/21 21:30 PFSH ED PFSH: Medical History (Updated 03/02/21 @ 08:36 by Hiro Delaney MD) Abdominal pain Abdominal pain Acute pyelonephritis Broken clavicle Cardiomyopathy Constipated COPD (chronic obstructive pulmonary disease) Hepatitis B Leukocytosis Liver nodule Marijuana use Methamphetamine use Orchitis S/P ORIF (open reduction internal fixation) fracture Clavicle [address] Goodwin Left clavicle Testicular mass Tobacco dependency Transaminitis Surgical History No pertinent past surgical history Social History (Updated 03/02/21 @ 08:21 by Hiro Delaney MD) Smoking and tobacco status: current every day smoker Alcohol intake: never Course Vital Signs: Vital signs: Vital Signs Temperature 97.5 F L 03/03/21 19:29 Pulse Rate 110 H 03/04/21 00:00 Respiratory Rate 18 03/04/21 03:52 Blood Pressure 132/106 03/04/21 00:00 Pulse Oximetry 100 03/04/21 03:52 MDM - Nausea/Vomiting/Diarrhea MDM Narrative: Medical decision making narrative: Assumed a change of shift. Patient had a glucose of 60 on his BMP and 40 on his Accu-Chek we gave him some D50 which improved it. He is still disoriented and cannot answer questions very well hospitalist consulted for management. We have called 50 facilities and not been able to find anything that will accept him on transfer. I discussed with the hospitalist they will continue assist with management through the night and will continue to look for potential placements. He should see gastroenterology as well as nephrology. 03/03/21 Care assumed again this morning at change of shift. Discussed with Dr. Zimmerman hospitalist. Patient is currently admitted as an ED hold. We do not have available ICU beds and we are searching for tertiary care hospital transfer to for available GI specialist nephrology has been consulted. Dr. Zimmerman has been to the department and seen the patient this morning and made adjustments in his care. Patient remains on the waiting list we contacted [facility] again as can be quite some time before bed opens Dr. Zimmerman has decided to go ahead and admit him to our ICU pending transfer when bed becomes available. I was assessing the patient and noted that he had desatted into the 80s he was having apneic spells. We used [id number] to get him back to 100% contacted Dr. Erasmo Delaney came to the ER and he was electively intubated. Dr. Zimmerman performance debate intubation see his note. Lab Data: Labs: Lab Results 03/01/21 03/01/21 03/01/21 Range/Units 22:00 22:00 22:00 WBC 23.8 H (4.0-10.0) 10^3/ uL RBC 3.94 L (4.1-5.3) 10^6/u L Hgb 12.1 (11.7-16.6) g/dL Hct 37.6 L (42.0-52.0) % MCV 95.4 H (80-94) fl MCH 30.7 (28.0-34.0) pg MCHC 32.2 (30.0-36.0) g/dL RDW 17.0 H (12.1-15.1) % Plt Count 298 (130-400) 10^3/c mm MPV 9.8 (7.4-10.4) fL Neut % (Auto) 80.8 % Lymph % (Auto) 9.5 % [place] % (Auto) 5.6 % Eos % (Auto) 0.0 % Baso % (Auto) 0.4 % Neut # (Auto) 19.23 H (1.8-7.7) 10^3/u L Lymph # (Auto) 2.3 (0.8-4.8) 10^3/u L [place] # (Auto) 1.3 H (0.2-0.9) 10^3/u L Eos # (Auto) 0.0 (0.0-0.8) 10^3/u L Baso # (Auto) 0.1 (0.0-0.1) 10^3/u L Nucleated RBC % (a uto) 0.1 % Nucleated RBCs # 0.0 /100WBC PT (12.1-14.9) SECO NDS INR (0.8-1.2) Specimen Type Sample Site ABG pH (7.35-7.45) ABG pCO2 (35-45) mmHg ABG pO2 (80.0-100.0) mmH g ABG HCO3 (22-26) mmol/L ABG Base Excess (-2.0-2.0) mmol/ L Zhou Test Hematocrit (42-52) % O2 Delivery Device FiO2 % Specimen Drawn By Wire Drawing Machine Tender ID Sodium 124 L (136-145) mmol/L Potassium 4.5 (3.5-5.1) mmol/L Chloride 82 L (98-107) mmol/L Carbon Dioxide 20 L (22-29) mmol/L Anion Gap 26.5 H (5-19) BUN 77 H (6-20) mg/dL Creatinine 4.2 H (0.7-1.2) mg/dL GFR Calculation 15.2 L (90-130) mL/min Glucose 116 H (65-115) mg/dL POC Glucose (70-110) mg/dL Calculated Osmolal ity 282 L (285-295) mOsm/k g Lactate 6.5 H* (0.5-2.2) mmol/L Calcium 8.1 L (8.5-10.5) mg/dL Total Bilirubin 1.4 H (0.15-1.2) mg/dL Direct Bilirubin (0.00-0.30) mg/d L AST 1643 H (0-40) U/L ALT 901 H (0-41) U/L Alkaline Phosphata se 311 H (40-130) IU/L Ammonia (16-60) umol/L Creatine Kinase (39-308) U/L Total Protein 8.0 (6.6-8.7) g/dL Albumin 2.5 L (3.5-5.2) g/dL Globulin 5.5 H (1.3-4.6) g/dL Lipase 62 H (13-60) U/L TSH 1.50 (0.27-4.20) uIU/ mL Urine Color (Yellow) Urine Appearance (CLEAR) Urine pH (5-7) Ur Specific Gravit y (1.005-1.030) Urine Protein (Negative) Urine Glucose (UA) (Normal) Urine Ketones (Negative) Urine Blood (Negative) Urine Nitrate (Negative) Urine Bilirubin (Negative) Urine Urobilinogen (Negative) mg/dL Ur Leukocyte Caitie ase (Negative) Urine RBC (0-2) /hpf Urine WBC (0-5) /hpf Ur Squamous Epith Cells (0-5) /hpf Amorphous Sediment /hpf Urine Bacteria (NONE) /hpf Ur Random Sodium mmol/L Urine Creatinine (39-259) mg/dL Salicylates < 0.3 L (3-10) mg/dL Urine Opiates Scre en (Negative) ng/mL Acetaminophen < 5.0 L (10-30) ug/mL Ur Barbiturates Sc reen (Negative) ng/mL Ur Phencyclidine S crn (Negative) ng/mL Ur Amphetamines Sc reen (Negative) ng/mL U Benzodiazepines Scrn (Negative) ng/mL Urine Cocaine Scre en (Negative) ng/mL U Marijuana (THC) Screen (Negative) ng/mL Ethyl Alcohol < 10 (0-10) mg/dL Hepatitis A IgM Ab (Nonreactive) Hep Bs Antigen (Nonreactive) Hep B Core IgM Ab (Nonreactive) Hepatitis C Antibo dy (Nonreactive) SARS-CoV-2 Ag (Rap id) (Negative) Blood Type Rho(D) Type Antibody Screen 03/01/21 03/01/21 03/01/21 Range/Units 22:00 23:00 23:00 WBC (4.0-10.0) 10^3/ uL RBC (4.1-5.3) 10^6/u L Hgb (11.7-16.6) g/dL Hct (42.0-52.0) % MCV (80-94) fl MCH (28.0-34.0) pg MCHC (30.0-36.0) g/dL RDW (12.1-15.1) % Plt Count (130-400) 10^3/c mm MPV (7.4-10.4) fL Neut % (Auto) % Lymph % (Auto) % [place] % (Auto) % Eos % (Auto) % Baso % (Auto) % Neut # (Auto) (1.8-7.7) 10^3/u L Lymph # (Auto) (0.8-4.8) 10^3/u L [place] # (Auto) (0.2-0.9) 10^3/u L Eos # (Auto) (0.0-0.8) 10^3/u L Baso # (Auto) (0.0-0.1) 10^3/u L Nucleated RBC % (a uto) % Nucleated RBCs # /100WBC PT 30.60 H (12.1-14.9) SECO NDS INR 2.88 H (0.8-1.2) Specimen Type Sample Site ABG pH (7.35-7.45) ABG pCO2 (35-45) mmHg ABG pO2 (80.0-100.0) mmH g ABG HCO3 (22-26) mmol/L ABG Base Excess (-2.0-2.0) mmol/ L Zhou Test Hematocrit (42-52) % O2 Delivery Device FiO2 % Specimen Drawn By Wire Drawing Machine Tender ID Sodium (136-145) mmol/L Potassium (3.5-5.1) mmol/L Chloride (98-107) mmol/L Carbon Dioxide (22-29) mmol/L Anion Gap (5-19) BUN (6-20) mg/dL Creatinine (0.7-1.2) mg/dL GFR Calculation (90-130) mL/min Glucose (65-115) mg/dL POC Glucose (70-110) mg/dL Calculated Osmolal ity (285-295) mOsm/k g Lactate (0.5-2.2) mmol/L Calcium (8.5-10.5) mg/dL Total Bilirubin (0.15-1.2) mg/dL Direct Bilirubin (0.00-0.30) mg/d L AST (0-40) U/L ALT (0-41) U/L Alkaline Phosphata se (40-130) IU/L Ammonia (16-60) umol/L Creatine Kinase 559 H* (39-308) U/L Total Protein (6.6-8.7) g/dL Albumin (3.5-5.2) g/dL Globulin (1.3-4.6) g/dL Lipase (13-60) U/L TSH (0.27-4.20) uIU/ mL Urine Color (Yellow) Urine Appearance (CLEAR) Urine pH (5-7) Ur Specific Gravit y (1.005-1.030) Urine Protein (Negative) Urine Glucose (UA) (Normal) Urine Ketones (Negative) Urine Blood (Negative) Urine Nitrate (Negative) Urine Bilirubin (Negative) Urine Urobilinogen (Negative) mg/dL Ur Leukocyte Caitie ase (Negative) Urine RBC (0-2) /hpf Urine WBC (0-5) /hpf Ur Squamous Epith Cells (0-5) /hpf Amorphous Sediment /hpf Urine Bacteria (NONE) /hpf Ur Random Sodium mmol/L Urine Creatinine (39-259) mg/dL Salicylates (3-10) mg/dL Urine Opiates Scre en (Negative) ng/mL Acetaminophen (10-30) ug/mL Ur Barbiturates Sc reen (Negative) ng/mL Ur Phencyclidine S crn (Negative) ng/mL Ur Amphetamines Sc reen (Negative) ng/mL U Benzodiazepines Scrn (Negative) ng/mL Urine Cocaine Scre en (Negative) ng/mL U Marijuana (THC) Screen (Negative) ng/mL Ethyl Alcohol (0-10) mg/dL Hepatitis A IgM Ab (Nonreactive) Hep Bs Antigen (Nonreactive) Hep B Core IgM Ab (Nonreactive) Hepatitis C Antibo dy (Nonreactive) SARS-CoV-2 Ag (Rap id) (Negative) Blood Type AB Positive Rho(D) Type Positive Antibody Screen Negative 03/01/21 03/01/21 03/02/21 Range/Units 23:00 23:32 00:15 WBC (4.0-10.0) 10^3/ uL RBC (4.1-5.3) 10^6/u L Hgb (11.7-16.6) g/dL Hct (42.0-52.0) % MCV (80-94) fl MCH (28.0-34.0) pg MCHC (30.0-36.0) g/dL RDW (12.1-15.1) % Plt Count (130-400) 10^3/c mm MPV (7.4-10.4) fL Neut % (Auto) % Lymph % (Auto) % [place] % (Auto) % Eos % (Auto) % Baso % (Auto) % Neut # (Auto) (1.8-7.7) 10^3/u L Lymph # (Auto) (0.8-4.8) 10^3/u L [place] # (Auto) (0.2-0.9) 10^3/u L Eos # (Auto) (0.0-0.8) 10^3/u L Baso # (Auto) (0.0-0.1) 10^3/u L Nucleated RBC % (a uto) % Nucleated RBCs # /100WBC PT (12.1-14.9) SECO NDS INR (0.8-1.2) Specimen Type Art Sample Site Left rad ABG pH 7.45 (7.35-7.45) ABG pCO2 31.0 L (35-45) mmHg ABG pO2 91.0 (80.0-100.0) mmH g ABG HCO3 22.0 (22-26) mmol/L ABG Base Excess -1.4 (-2.0-2.0) mmol/ L Zhou Test Pos Hematocrit 31.0 L (42-52) % O2 Delivery Device Ra FiO2 21.0 % Specimen Drawn By [employer] Wire Drawing Machine Tender ID Pe Sodium (136-145) mmol/L Potassium (3.5-5.1) mmol/L Chloride (98-107) mmol/L Carbon Dioxide (22-29) mmol/L Anion Gap (5-19) BUN (6-20) mg/dL Creatinine (0.7-1.2) mg/dL GFR Calculation (90-130) mL/min Glucose (65-115) mg/dL POC Glucose (70-110) mg/dL Calculated Osmolal ity (285-295) mOsm/k g Lactate (0.5-2.2) mmol/L Calcium (8.5-10.5) mg/dL Total Bilirubin (0.15-1.2) mg/dL Direct Bilirubin (0.00-0.30) mg/d L AST (0-40) U/L ALT (0-41) U/L Alkaline Phosphata se (40-130) IU/L Ammonia 63 H (16-60) umol/L Creatine Kinase (39-308) U/L Total Protein (6.6-8.7) g/dL Albumin (3.5-5.2) g/dL Globulin (1.3-4.6) g/dL Lipase (13-60) U/L TSH (0.27-4.20) uIU/ mL Urine Color Yellow (Yellow) Urine Appearance Clear (CLEAR) Urine pH 5 (5-7) Ur Specific Gravit y 1.015 (1.005-1.030) Urine Protein 1+ H (Negative) Urine Glucose (UA) Norm (Normal) Urine Ketones Negative (Negative) Urine Blood 3+ H (Negative) Urine Nitrate Negative (Negative) Urine Bilirubin Neg (Negative) Urine Urobilinogen Norm (Negative) mg/dL Ur Leukocyte Caitie ase Negative (Negative) Urine RBC 10-15 H (0-2) /hpf Urine WBC 0-4 H (0-5) /hpf Ur Squamous Epith Cells 0-4 H (0-5) /hpf Amorphous Sediment 1+ /hpf Urine Bacteria Trace (NONE) /hpf Ur Random Sodium mmol/L Urine Creatinine (39-259) mg/dL Salicylates (3-10) mg/dL Urine Opiates Scre en (Negative) ng/mL Acetaminophen (10-30) ug/mL Ur Barbiturates Sc reen (Negative) ng/mL Ur Phencyclidine S crn (Negative) ng/mL Ur Amphetamines Sc reen (Negative) ng/mL U Benzodiazepines Scrn (Negative) ng/mL Urine Cocaine Scre en (Negative) ng/mL U Marijuana (THC) Screen (Negative) ng/mL Ethyl Alcohol (0-10) mg/dL Hepatitis A IgM Ab (Nonreactive) Hep Bs Antigen (Nonreactive) Hep B Core IgM Ab (Nonreactive) Hepatitis C Antibo dy (Nonreactive) SARS-CoV-2 Ag (Rap id) (Negative) Blood Type Rho(D) Type Antibody Screen 03/02/21 03/02/21 03/02/21 Range/Units 00:15 00:15 00:50 WBC (4.0-10.0) 10^3/ uL RBC (4.1-5.3) 10^6/u L Hgb (11.7-16.6) g/dL Hct (42.0-52.0) % MCV (80-94) fl MCH (28.0-34.0) pg MCHC (30.0-36.0) g/dL RDW (12.1-15.1) % Plt Count (130-400) 10^3/c mm MPV (7.4-10.4) fL Neut % (Auto) % Lymph % (Auto) % [place] % (Auto) % Eos % (Auto) % Baso % (Auto) % Neut # (Auto) (1.8-7.7) 10^3/u L Lymph # (Auto) (0.8-4.8) 10^3/u L [place] # (Auto) (0.2-0.9) 10^3/u L Eos # (Auto) (0.0-0.8) 10^3/u L Baso # (Auto) (0.0-0.1) 10^3/u L Nucleated RBC % (a uto) % Nucleated RBCs # /100WBC PT (12.1-14.9) SECO NDS INR (0.8-1.2) Specimen Type Sample Site ABG pH (7.35-7.45) ABG pCO2 (35-45) mmHg ABG pO2 (80.0-100.0) mmH g ABG HCO3 (22-26) mmol/L ABG Base Excess (-2.0-2.0) mmol/ L Zhou Test Hematocrit (42-52) % O2 Delivery Device FiO2 % Specimen Drawn By Wire Drawing Machine Tender ID Sodium (136-145) mmol/L Potassium (3.5-5.1) mmol/L Chloride (98-107) mmol/L Carbon Dioxide (22-29) mmol/L Anion Gap (5-19) BUN (6-20) mg/dL Creatinine (0.7-1.2) mg/dL GFR Calculation (90-130) mL/min Glucose (65-115) mg/dL POC Glucose (70-110) mg/dL Calculated Osmolal ity (285-295) mOsm/k g Lactate (0.5-2.2) mmol/L Calcium (8.5-10.5) mg/dL Total Bilirubin (0.15-1.2) mg/dL Direct Bilirubin (0.00-0.30) mg/d L AST (0-40) U/L ALT (0-41) U/L Alkaline Phosphata se (40-130) IU/L Ammonia (16-60) umol/L Creatine Kinase (39-308) U/L Total Protein (6.6-8.7) g/dL Albumin (3.5-5.2) g/dL Globulin (1.3-4.6) g/dL Lipase (13-60) U/L TSH (0.27-4.20) uIU/ mL Urine Color (Yellow) Urine Appearance (CLEAR) Urine pH (5-7) Ur Specific Gravit y (1.005-1.030) Urine Protein (Negative) Urine Glucose (UA) (Normal) Urine Ketones (Negative) Urine Blood (Negative) Urine Nitrate (Negative) Urine Bilirubin (Negative) Urine Urobilinogen (Negative) mg/dL Ur Leukocyte Caitie ase (Negative) Urine RBC (0-2) /hpf Urine WBC (0-5) /hpf Ur Squamous Epith Cells (0-5) /hpf Amorphous Sediment /hpf Urine Bacteria (NONE) /hpf Ur Random Sodium 19 mmol/L Urine Creatinine 67 (39-259) mg/dL Salicylates (3-10) mg/dL Urine Opiates Scre en Negative (Negative) ng/mL Acetaminophen (10-30) ug/mL Ur Barbiturates Sc reen Negative (Negative) ng/mL Ur Phencyclidine S crn Negative (Negative) ng/mL Ur Amphetamines Sc reen Positive H (Negative) ng/mL U Benzodiazepines Scrn Negative (Negative) ng/mL Urine Cocaine Scre en Negative (Negative) ng/mL U Marijuana (THC) Screen Positive H (Negative) ng/mL Ethyl Alcohol (0-10) mg/dL Hepatitis A IgM Ab (Nonreactive) Hep Bs Antigen (Nonreactive) Hep B Core IgM Ab (Nonreactive) Hepatitis C Antibo dy (Nonreactive) SARS-CoV-2 Ag (Rap id) Negative (Negative) Blood Type Rho(D) Type Antibody Screen 03/02/21 03/02/21 03/02/21 Range/Units 01:27 04:00 04:00 WBC (4.0-10.0) 10^3/ uL RBC (4.1-5.3) 10^6/u L Hgb (11.7-16.6) g/dL Hct (42.0-52.0) % MCV (80-94) fl MCH (28.0-34.0) pg MCHC (30.0-36.0) g/dL RDW (12.1-15.1) % Plt Count (130-400) 10^3/c mm MPV (7.4-10.4) fL Neut % (Auto) % Lymph % (Auto) % [place] % (Auto) % Eos % (Auto) % Baso % (Auto) % Neut # (Auto) (1.8-7.7) 10^3/u L Lymph # (Auto) (0.8-4.8) 10^3/u L [place] # (Auto) (0.2-0.9) 10^3/u L Eos # (Auto) (0.0-0.8) 10^3/u L Baso # (Auto) (0.0-0.1) 10^3/u L Nucleated RBC % (a uto) % Nucleated RBCs # /100WBC PT (12.1-14.9) SECO NDS INR (0.8-1.2) Specimen Type Sample Site ABG pH (7.35-7.45) ABG pCO2 (35-45) mmHg ABG pO2 (80.0-100.0) mmH g ABG HCO3 (22-26) mmol/L ABG Base Excess (-2.0-2.0) mmol/ L Zhou Test Hematocrit (42-52) % O2 Delivery Device FiO2 % Specimen Drawn By Wire Drawing Machine Tender ID Sodium 129 L (136-145) mmol/L Potassium 4.5 (3.5-5.1) mmol/L Chloride 91 L (98-107) mmol/L Carbon Dioxide 16 L (22-29) mmol/L Anion Gap 26.5 H (5-19) BUN 85 H* (6-20) mg/dL Creatinine 4.1 H (0.7-1.2) mg/dL GFR Calculation 15.7 L (90-130) mL/min Glucose 60 L (65-115) mg/dL POC Glucose (70-110) mg/dL Calculated Osmolal ity 292 (285-295) mOsm/k g Lactate 5.4 H* (0.5-2.2) mmol/L Calcium 7.5 L (8.5-10.5) mg/dL Total Bilirubin 1.5 H (0.15-1.2) mg/dL Direct Bilirubin 1.30 H (0.00-0.30) mg/d L AST 1104 H (0-40) U/L ALT 785 H (0-41) U/L Alkaline Phosphata se 251 H (40-130) IU/L Ammonia (16-60) umol/L Creatine Kinase 476 H* (39-308) U/L Total Protein 6.8 (6.6-8.7) g/dL Albumin 2.0 L (3.5-5.2) g/dL Globulin 4.8 H (1.3-4.6) g/dL Lipase (13-60) U/L TSH (0.27-4.20) uIU/ mL Urine Color (Yellow) Urine Appearance (CLEAR) Urine pH (5-7) Ur Specific Gravit y (1.005-1.030) Urine Protein (Negative) Urine Glucose (UA) (Normal) Urine Ketones (Negative) Urine Blood (Negative) Urine Nitrate (Negative) Urine Bilirubin (Negative) Urine Urobilinogen (Negative) mg/dL Ur Leukocyte Caitie ase (Negative) Urine RBC (0-2) /hpf Urine WBC (0-5) /hpf Ur Squamous Epith Cells (0-5) /hpf Amorphous Sediment /hpf Urine Bacteria (NONE) /hpf Ur Random Sodium mmol/L Urine Creatinine (39-259) mg/dL Salicylates (3-10) mg/dL Urine Opiates Scre en (Negative) ng/mL Acetaminophen (10-30) ug/mL Ur Barbiturates Sc reen (Negative) ng/mL Ur Phencyclidine S crn (Negative) ng/mL Ur Amphetamines Sc reen (Negative) ng/mL U Benzodiazepines Scrn (Negative) ng/mL Urine Cocaine Scre en (Negative) ng/mL U Marijuana (THC) Screen (Negative) ng/mL Ethyl Alcohol (0-10) mg/dL Hepatitis A IgM Ab (Nonreactive) Hep Bs Antigen (Nonreactive) Hep B Core IgM Ab (Nonreactive) Hepatitis C Antibo dy (Nonreactive) SARS-CoV-2 Ag (Rap id) (Negative) Blood Type Rho(D) Type Antibody Screen 03/02/21 03/02/21 03/02/21 Range/Units 04:00 08:30 09:25 WBC 22.6 H (4.0-10.0) 10^3/ uL RBC 3.20 L (4.1-5.3) 10^6/u L Hgb 9.9 L (11.7-16.6) g/dL Hct 31.1 L (42.0-52.0) % MCV 97.2 H (80-94) fl MCH 30.9 (28.0-34.0) pg MCHC 31.8 (30.0-36.0) g/dL RDW 17.2 H (12.1-15.1) % Plt Count 214 (130-400) 10^3/c mm MPV 10.0 (7.4-10.4) fL Neut % (Auto) 88.3 % Lymph % (Auto) 6.3 % [place] % (Auto) 2.5 % Eos % (Auto) 0.0 % Baso % (Auto) 0.2 % Neut # (Auto) 19.98 H (1.8-7.7) 10^3/u L Lymph # (Auto) 1.4 (0.8-4.8) 10^3/u L [place] # (Auto) 0.6 (0.2-0.9) 10^3/u L Eos # (Auto) 0.0 (0.0-0.8) 10^3/u L Baso # (Auto) 0.1 (0.0-0.1) 10^3/u L Nucleated RBC % (a uto) 0.2 % Nucleated RBCs # 0.1 /100WBC PT (12.1-14.9) SECO NDS INR (0.8-1.2) Specimen Type Sample Site ABG pH (7.35-7.45) ABG pCO2 (35-45) mmHg ABG pO2 (80.0-100.0) mmH g ABG HCO3 (22-26) mmol/L ABG Base Excess (-2.0-2.0) mmol/ L Zhou Test Hematocrit (42-52) % O2 Delivery Device FiO2 % Specimen Drawn By Wire Drawing Machine Tender ID Sodium (136-145) mmol/L Potassium (3.5-5.1) mmol/L Chloride (98-107) mmol/L Carbon Dioxide (22-29) mmol/L Anion Gap (5-19) BUN (6-20) mg/dL Creatinine (0.7-1.2) mg/dL GFR Calculation (90-130) mL/min Glucose (65-115) mg/dL POC Glucose 49 L (70-110) mg/dL Calculated Osmolal ity (285-295) mOsm/k g Lactate (0.5-2.2) mmol/L Calcium (8.5-10.5) mg/dL Total Bilirubin (0.15-1.2) mg/dL Direct Bilirubin (0.00-0.30) mg/d L AST (0-40) U/L ALT (0-41) U/L Alkaline Phosphata se (40-130) IU/L Ammonia (16-60) umol/L Creatine Kinase (39-308) U/L Total Protein (6.6-8.7) g/dL Albumin (3.5-5.2) g/dL Globulin (1.3-4.6) g/dL Lipase (13-60) U/L TSH (0.27-4.20) uIU/ mL Urine Color (Yellow) Urine Appearance (CLEAR) Urine pH (5-7) Ur Specific Gravit y (1.005-1.030) Urine Protein (Negative) Urine Glucose (UA) (Normal) Urine Ketones (Negative) Urine Blood (Negative) Urine Nitrate (Negative) Urine Bilirubin (Negative) Urine Urobilinogen (Negative) mg/dL Ur Leukocyte Caitie ase (Negative) Urine RBC (0-2) /hpf Urine WBC (0-5) /hpf Ur Squamous Epith Cells (0-5) /hpf Amorphous Sediment /hpf Urine Bacteria (NONE) /hpf Ur Random Sodium mmol/L Urine Creatinine (39-259) mg/dL Salicylates (3-10) mg/dL Urine Opiates Scre en (Negative) ng/mL Acetaminophen < 5.0 L (10-30) ug/mL Ur Barbiturates Sc reen (Negative) ng/mL Ur Phencyclidine S crn (Negative) ng/mL Ur Amphetamines Sc reen (Negative) ng/mL U Benzodiazepines Scrn (Negative) ng/mL Urine Cocaine Scre en (Negative) ng/mL U Marijuana (THC) Screen (Negative) ng/mL Ethyl Alcohol (0-10) mg/dL Hepatitis A IgM Ab (Nonreactive) Hep Bs Antigen (Nonreactive) Hep B Core IgM Ab (Nonreactive) Hepatitis C Antibo dy (Nonreactive) SARS-CoV-2 Ag (Rap id) (Negative) Blood Type Rho(D) Type Antibody Screen 03/02/21 03/02/21 03/02/21 Range/Units 09:25 09:25 09:25 WBC (4.0-10.0) 10^3/ uL RBC (4.1-5.3) 10^6/u L Hgb (11.7-16.6) g/dL Hct (42.0-52.0) % MCV (80-94) fl MCH (28.0-34.0) pg MCHC (30.0-36.0) g/dL RDW (12.1-15.1) % Plt Count (130-400) 10^3/c mm MPV (7.4-10.4) fL Neut % (Auto) % Lymph % (Auto) % [place] % (Auto) % Eos % (Auto) % Baso % (Auto) % Neut # (Auto) (1.8-7.7) 10^3/u L Lymph # (Auto) (0.8-4.8) 10^3/u L [place] # (Auto) (0.2-0.9) 10^3/u L Eos # (Auto) (0.0-0.8) 10^3/u L Baso # (Auto) (0.0-0.1) 10^3/u L Nucleated RBC % (a uto) % Nucleated RBCs # /100WBC PT 35.90 H (12.1-14.9) SECO NDS INR 3.53 H (0.8-1.2) Specimen Type Sample Site ABG pH (7.35-7.45) ABG pCO2 (35-45) mmHg ABG pO2 (80.0-100.0) mmH g ABG HCO3 (22-26) mmol/L ABG Base Excess (-2.0-2.0) mmol/ L Zhou Test Hematocrit (42-52) % O2 Delivery Device FiO2 % Specimen Drawn By Wire Drawing Machine Tender ID Sodium (136-145) mmol/L Potassium (3.5-5.1) mmol/L Chloride (98-107) mmol/L Carbon Dioxide (22-29) mmol/L Anion Gap (5-19) BUN (6-20) mg/dL Creatinine (0.7-1.2) mg/dL GFR Calculation (90-130) mL/min Glucose (65-115) mg/dL POC Glucose (70-110) mg/dL Calculated Osmolal ity (285-295) mOsm/k g Lactate (0.5-2.2) mmol/L Calcium (8.5-10.5) mg/dL Total Bilirubin (0.15-1.2) mg/dL Direct Bilirubin (0.00-0.30) mg/d L AST (0-40) U/L ALT (0-41) U/L Alkaline Phosphata se (40-130) IU/L Ammonia 69 H (16-60) umol/L Creatine Kinase (39-308) U/L Total Protein (6.6-8.7) g/dL Albumin (3.5-5.2) g/dL Globulin (1.3-4.6) g/dL Lipase (13-60) U/L TSH (0.27-4.20) uIU/ mL Urine Color (Yellow) Urine Appearance (CLEAR) Urine pH (5-7) Ur Specific Gravit y (1.005-1.030) Urine Protein (Negative) Urine Glucose (UA) (Normal) Urine Ketones (Negative) Urine Blood (Negative) Urine Nitrate (Negative) Urine Bilirubin (Negative) Urine Urobilinogen (Negative) mg/dL Ur Leukocyte Caitie ase (Negative) Urine RBC (0-2) /hpf Urine WBC (0-5) /hpf Ur Squamous Epith Cells (0-5) /hpf Amorphous Sediment /hpf Urine Bacteria (NONE) /hpf Ur Random Sodium mmol/L Urine Creatinine (39-259) mg/dL Salicylates (3-10) mg/dL Urine Opiates Scre en (Negative) ng/mL Acetaminophen (10-30) ug/mL Ur Barbiturates Sc reen (Negative) ng/mL Ur Phencyclidine S crn (Negative) ng/mL Ur Amphetamines Sc reen (Negative) ng/mL U Benzodiazepines Scrn (Negative) ng/mL Urine Cocaine Scre en (Negative) ng/mL U Marijuana (THC) Screen (Negative) ng/mL Ethyl Alcohol (0-10) mg/dL Hepatitis A IgM Ab Non-reactive (Nonreactive) Hep Bs Antigen Reactive H (Nonreactive) Hep B Core IgM Ab Non-reactive (Nonreactive) Hepatitis C Antibo dy Non-reactive (Nonreactive) SARS-CoV-2 Ag (Rap id) (Negative) Blood Type Rho(D) Type Antibody Screen 03/02/21 03/02/21 Range/Units 10:01 11:48 WBC (4.0-10.0) 10^3/ uL RBC (4.1-5.3) 10^6/u L Hgb (11.7-16.6) g/dL Hct (42.0-52.0) % MCV (80-94) fl MCH (28.0-34.0) pg MCHC (30.0-36.0) g/dL RDW (12.1-15.1) % Plt Count (130-400) 10^3/c mm MPV (7.4-10.4) fL Neut % (Auto) % Lymph % (Auto) % [place] % (Auto) % Eos % (Auto) % Baso % (Auto) % Neut # (Auto) (1.8-7.7) 10^3/u L Lymph # (Auto) (0.8-4.8) 10^3/u L [place] # (Auto) (0.2-0.9) 10^3/u L Eos # (Auto) (0.0-0.8) 10^3/u L Baso # (Auto) (0.0-0.1) 10^3/u L Nucleated RBC % (a uto) % Nucleated RBCs # /100WBC PT (12.1-14.9) SECO NDS INR (0.8-1.2) Specimen Type Sample Site ABG pH (7.35-7.45) ABG pCO2 (35-45) mmHg ABG pO2 (80.0-100.0) mmH g ABG HCO3 (22-26) mmol/L ABG Base Excess (-2.0-2.0) mmol/ L Zhou Test Hematocrit (42-52) % O2 Delivery Device FiO2 % Specimen Drawn By Wire Drawing Machine Tender ID Sodium (136-145) mmol/L Potassium (3.5-5.1) mmol/L Chloride (98-107) mmol/L Carbon Dioxide (22-29) mmol/L Anion Gap (5-19) BUN (6-20) mg/dL Creatinine (0.7-1.2) mg/dL GFR Calculation (90-130) mL/min Glucose (65-115) mg/dL POC Glucose 100 105 (70-110) mg/dL Calculated Osmolal ity (285-295) mOsm/k g Lactate (0.5-2.2) mmol/L Calcium (8.5-10.5) mg/dL Total Bilirubin (0.15-1.2) mg/dL Direct Bilirubin (0.00-0.30) mg/d L AST (0-40) U/L ALT (0-41) U/L Alkaline Phosphata se (40-130) IU/L Ammonia (16-60) umol/L Creatine Kinase (39-308) U/L Total Protein (6.6-8.7) g/dL Albumin (3.5-5.2) g/dL Globulin (1.3-4.6) g/dL Lipase (13-60) U/L TSH (0.27-4.20) uIU/ mL Urine Color (Yellow) Urine Appearance (CLEAR) Urine pH (5-7) Ur Specific Gravit y (1.005-1.030) Urine Protein (Negative) Urine Glucose (UA) (Normal) Urine Ketones (Negative) Urine Blood (Negative) Urine Nitrate (Negative) Urine Bilirubin (Negative) Urine Urobilinogen (Negative) mg/dL Ur Leukocyte Caitie ase (Negative) Urine RBC (0-2) /hpf Urine WBC (0-5) /hpf Ur Squamous Epith Cells (0-5) /hpf Amorphous Sediment /hpf Urine Bacteria (NONE) /hpf Ur Random Sodium mmol/L Urine Creatinine (39-259) mg/dL Salicylates (3-10) mg/dL Urine Opiates Scre en (Negative) ng/mL Acetaminophen (10-30) ug/mL Ur Barbiturates Sc reen (Negative) ng/mL Ur Phencyclidine S crn (Negative) ng/mL Ur Amphetamines Sc reen (Negative) ng/mL U Benzodiazepines Scrn (Negative) ng/mL Urine Cocaine Scre en (Negative) ng/mL U Marijuana (THC) Screen (Negative) ng/mL Ethyl Alcohol (0-10) mg/dL Hepatitis A IgM Ab (Nonreactive) Hep Bs Antigen (Nonreactive) Hep B Core IgM Ab (Nonreactive) Hepatitis C Antibo dy (Nonreactive) SARS-CoV-2 Ag (Rap id) (Negative) Blood Type Rho(D) Type Antibody Screen Discharge Plan Discharge Admit Provider: Hiro Delaney Discharge Orders: Discharge Order (Routine); Ordered 03/03/21 Ordered By: Domitila Mullen Coding Level of Care Code ED Pc Maintenance Technician for Donny Neil
--- NOTE | 2021-03-01 21:35 | XRR_ITS ---
PROCEDURE INFORMATION: Exam: XR Chest Exam date and time: 03/01/2021 9:35 PM Age: 50 years old Clinical indication: Other: Vomitting blood; Additional info: SOB, hematemesis, ? free air TECHNIQUE: Imaging protocol: XR of the chest. Views: 1 view. COMPARISON: CR (CHEST, ) 02/11/2021 4:25 AM FINDINGS: Lungs: Right upper lobe calcified granuloma. Emphysematous changes. Pleural spaces: Unremarkable. No pleural effusion. No pneumothorax. Heart/Mediastinum: Calcified mediastinal lymph nodes. Bones/joints: Left clavicular surgical hardware. XR/XR chest 1V portable [id number] IMPRESSION: 1. Right upper lobe calcified granuloma. 2. Left clavicular surgical hardware. 3. Calcified mediastinal lymph nodes. 4. Emphysematous changes.
[2021-03-01 22:17] LABS: Basophils # 0.1 10^3/uL (0.0-0.1); Basophils % 0.4 %; Hematocrit 37.6 % (42.0-52.0); Hemoglobin 12.1 g/dL (11.7-16.6); Lymphocytes # 2.3 10^3/uL (0.8-4.8); Lymphocytes % 9.5 %; Mean Corpuscular HGB Conc 32.2 g/dL (30.0-36.0); Mean Corpuscular Hemoglobin 30.7 pg (28.0-34.0); Mean Corpuscular Volume 95.4 fl (80-94); Mean Platelet Volume 9.8 fL (7.4-10.4); Monocytes # 1.3 10^3/uL (0.2-0.9); Monocytes % 5.6 %; Neutrophils # 19.23 10^3/uL (1.8-7.7); Neutrophils % 80.8 %; Nucleated Red Blood Cells % 0.1 %; Platelet Count 298 10^3/cmm (130-400); Red Blood Count 3.94 10^6/uL (4.1-5.3); White Blood Count 23.8 10^3/uL (4.0-10.0)
[2021-03-01] MEDS: ondansetron 2 mg/ML SDV 2 mL 4 MG IVP (22:19)
[2021-03-01] MEDS: LORazepam 2 mg/mL INJ 1 mL 1 MG IVP (22:19)
[2021-03-01] MEDS: sodium chloride 0.9% 1,000 ML 999 ML IV (22:19)
--- NOTE | 2021-03-01 22:21 | CTR_ITS ---
PROCEDURE INFORMATION: Exam: CT Chest With Contrast; Diagnostic Exam date and time: 03/01/2021 10:21 PM Age: 50 years old Clinical indication: Other: Vomitting blood; Additional info: AMS, hematemesis, critically ill TECHNIQUE: Imaging protocol: Diagnostic computed tomography of the chest with contrast. Radiation optimization: All CT scans at this facility use at least one of these dose optimization techniques: automated exposure control; mA and/or kV adjustment per patient size (includes targeted exams where dose is matched to clinical indication); or iterative reconstruction. Contrast material: OMNI 300; Contrast volume: 95 ml; Contrast route: INTRAVENOUS (IV); COMPARISON: CT abdomen pelvis con [id number] 02/13/2021 3:59 PM RADIATION DOSE METRICS: Total DLP (mGy-cm): 1479.31 FINDINGS: Lungs: Emphysematous changes. Bibasilar atelectasis. Pleural spaces: Unremarkable. No pneumothorax. No pleural effusion. Heart: Coronary artery atherosclerotic calcifications. Mediastinal space: Diffuse esophageal wall thickening may reflect an esophagitis Aorta: Unremarkable. No aortic aneurysm. Lymph nodes: Unremarkable. No enlarged lymph nodes. Bones/joints: Unremarkable. No acute fracture. Soft tissues: Unremarkable. IMPRESSION: 1. Diffuse esophageal wall thickening may reflect an esophagitis 2. Emphysematous changes. 3. Bibasilar atelectasis. 4. Coronary artery atherosclerotic calcifications. PROCEDURE INFORMATION: Exam: CT Abdomen And Pelvis With Contrast Exam date and time: 03/01/2021 10:21 PM Age: 50 years old Clinical indication: Other: Vomitting blood; Additional info: AMS, hematemesis, critically ill TECHNIQUE: Imaging protocol: Computed tomography of the abdomen and pelvis with contrast. Radiation optimization: All CT scans at this facility use at least one of these dose optimization techniques: automated exposure control; mA and/or kV adjustment per patient size (includes targeted exams where dose is matched to clinical indication); or iterative reconstruction. Contrast material: OMNI 300; Contrast volume: 95 ml; Contrast route: INTRAVENOUS (IV); COMPARISON: CT abdomen pelvis con [id number] 02/13/2021 3:59 PM RADIATION DOSE METRICS: Total DLP (mGy-cm): 1479.31 FINDINGS: Liver: Heterogeneous enhancement of the liver with underlying hepatic steatosis, may be due to bolus timing, underlying liver lesions are not excluded, please correlate clinically and consider further evaluation with nonemergent MRI. Gallbladder and bile ducts: Normal. No calcified stones. No ductal dilation. Pancreas: Normal. No ductal dilation. Spleen: Normal. No splenomegaly. Adrenal glands: Normal. No mass. Kidneys and ureters: Heterogeneous enhancement of the kidneys, similar findings are seen on a prior exam. Findings are of uncertain etiology, a consideration may be due to bolus timing or possibly infection among other etiologies. Stomach and bowel: Unremarkable. No obstruction. No mucosal thickening. Appendix: No evidence of appendicitis. Intraperitoneal space: Unremarkable. No free air. No significant fluid collection. Vasculature: Unremarkable. No abdominal aortic aneurysm. Lymph nodes: Unremarkable. No enlarged lymph nodes. Urinary bladder: Unremarkable as visualized. Reproductive: Unremarkable as visualized. Bones/joints: Unremarkable. No acute fracture. Soft tissues: Unremarkable. CT/CT chest abd pel w con* IMPRESSION: 1. Heterogeneous enhancement of the liver with underlying hepatic steatosis, may be due to bolus timing, underlying liver lesions are not excluded, please correlate clinically and consider further evaluation with nonemergent MRI. 2. Heterogeneous enhancement of the kidneys, similar findings are seen on a prior exam. Findings are of uncertain etiology, a consideration may be due to bolus timing or possibly infection among other etiologies. Radiation Dose CTDIVOL = (mGy): DLP = 1479.31~1479.31 (mGy-cm)
--- NOTE | 2021-03-01 22:21 | CTR_ITS ---
PROCEDURE INFORMATION: Exam: CT Head Without Contrast Exam date and time: 03/01/2021 10:21 PM Age: 50 years old Clinical indication: Altered mental status/memory loss; Additional info: AMS TECHNIQUE: Imaging protocol: Computed tomography of the head without contrast. Radiation optimization: All CT scans at this facility use at least one of these dose optimization techniques: automated exposure control; mA and/or kV adjustment per patient size (includes targeted exams where dose is matched to clinical indication); or iterative reconstruction. COMPARISON: CT head wo con* [id number] 01/13/2020 11:05 PM RADIATION DOSE METRICS: Total DLP (mGy-cm): 1290.46 FINDINGS: Brain: No acute intracranial hemorrhage or mass effect. No definite acute infarct by CT. MRI could be more sensitive/specific for detection, as clinically directed. Cerebral ventricles: Ventricle size is normal for age. Paranasal sinuses: Included paranasal sinuses are essentially clear. Mastoid air cells: No significant acute finding. Bones/joints: No definite acute skull fracture. CT/CT head wo con* [id number] IMPRESSION: 1. No acute intracranial hemorrhage or mass effect. 2. No definite acute infarct by CT, see above. 3. Other findings discussed above. Radiation Dose CTDIVOL = (mGy): DLP = 1290.46 (mGy-cm)
[2021-03-01 22:42] LABS: Lactate (Lactic Acid level) 6.5 mmol/L (0.5-2.2)
[2021-03-01 22:43] LABS: Albumin Level 2.5 g/dL (3.5-5.2); Alkaline Phosphatase 311 IU/L (40-130); Anion Gap 26.5 (5-19); Blood Urea Nitrogen 77 mg/dL (6-20); Calcium 8.1 mg/dL (8.5-10.5); Carbon Dioxide 20 mmol/L (22-29); Chloride 82 mmol/L (98-107); Globulin 5.5 g/dL (1.3-4.6); Glomerular Filtration Rate 15.2 mL/min (90-130); Glucose 116 mg/dL (65-115); Lipase 62 U/L (13-60); Osmolality Calculated 282 mOsm/kg (285-295); Potassium 4.5 mmol/L (3.5-5.1); Sodium 124 mmol/L (136-145); Total Bilirubin 1.4 mg/dL (0.15-1.2)
[2021-03-01 22:44] LABS: Acetaminophen < 5.0 ug/mL (10-30); Alcohol Level < 10 mg/dL (0-10); Salicylate < 0.3 mg/dL (3-10)
[2021-03-01] MEDS: iohexol 300 mg/mL 100 mL Btl IV (22:48)
[2021-03-01 22:55] LABS: Alanine Aminotransferase 901 U/L (0-41)
[2021-03-01 22:57] LABS: Aspartate Amino Transferase 1643 U/L (0-40)
[2021-03-01] MEDS: cefTRIAXone 1,000 MG in sodium chloride 0.9% (plus) 50 ML 100 MG IV (23:04)
[2021-03-01] MEDS: octreotide 100 mcg/mL SDV 50 MCG IVP (23:04)
[2021-03-01] MEDS: octreotide 500 MCG in sodium chloride 0.9% (100 ml) 100 ML 10.1 MCG IV (23:05)
[2021-03-01] MEDS: pantoprazole 40 mg SDV 80 MG IVP (23:05)
[2021-03-01 23:18] LABS: INR 2.88 (0.8-1.2)
[2021-03-01 23:23] LABS: Ammonia 63 umol/L (16-60)
[2021-03-01] MEDS: lactated ringers 1,000 ML 999 ML IV (23:36)
--- NOTE | 2021-03-01 23:36 | PC.NURSE ---
Pt resting, VSS. MD ordered to cancel the PO lidocaine. Verbal order received and repeated back by this RN
[2021-03-01 23:40] VITALS: BP 133/99; PULSE 129; RESP 16; O2SAT 99
[2021-03-01] MEDS: cefepime 2,000 MG in sodium chloride 0.9% (plus) 50 ML 100 MG IV (23:45)
[2021-03-02] VITALS (14 sets, daily range): BP systolic 130–150; BP diastolic 78–122; PULSE 109–128; RESP 16–20; O2SAT 95–100
[2021-03-02 00:09] LABS: Creatine Phosphokinase 559 U/L (39-308)
--- NOTE | 2021-03-02 00:15 | ECG_ITS ---
[facility] [place] [facility] Date: 2021-03-02 Pat Name: Rk Orourke Department: Room: Gender: Male Under Baster: : 1970 Requested By: Jonh Moran Order Number: [id number] Jaci MD: Tania Boston M.D. Measurements Intervals [place] Rate: 125 P: 86 FL: 138 QRS: -57 QRSD: 120 T: 89 QT: 318 QTc: 458 Interpretive Statements SINUS TACHYCARDIA INDETERMINATE AXIS RIGHT BUNDLE BRANCH BLOCK [120+ ms QRS DURATION, UPRIGHT V1, 40+ ms S IN I/aVL/V4/V5/V6] LEFT ANTERIOR FASCICULAR BLOCK [QRS AXIS <= -45, QR IN I, RS IN II] No previous ECG available for comparison Electronically Signed On 03-02-2021 23:45:57 CDT by Tania Boston M.D. [id number]
[2021-03-02 00:38] LABS: ABG PH Result 7.45 (7.35-7.45); Base Excess ABG -1.4 mmol/L (-2.0-2.0)
[2021-03-02 00:39] LABS: Blood Gas Allen Test POS; Blood Gas Sample Site LEFT RAD; Blood Gas Sample Type ART; Oxygen Device RA
[2021-03-02 00:54] LABS: Add Urine Culture? No; Add Urine Microscopic? YES; Amorphous Sediment Urine 1+ /hpf; Bacteria Urine TRACE /hpf; Bilirubin Urine Neg (Negative); Blood Urine 3+ (Negative); Glucose Urine UA Norm (Normal); Ketones Urine Negative (Negative); Leukocyte Esterase Urine Negative (Negative); Nitrate Urine Negative (Negative); Protein Urine 1+ (Negative); Specific Gravity, Urine 1.015 (1.005-1.030); Squamous Epithelial Cell Urine 0-4 /hpf (0-5); Urine Appearance Clear (CLEAR); Urine Color Yellow (Yellow); Urobilinogen Urine Norm (Negative); WBC Urine 0-4 /hpf (0-5); pH Urine 5 (5-7)
[2021-03-02 00:56] LABS: Amphetamines Screen Urine Positive (Negative); Barbiturates Screen Urine Negative (Negative); Benzodiazepines Screen Urine Negative (Negative); Cocaine Screen Urine Negative (Negative); Opiate Screen Urine Negative (Negative); PCP Screen Urine Negative (Negative); THC Screen Urine Positive (Negative)
[2021-03-02] MEDS: tamsulosin 0.4 mg Capsule PO (01:10)
[2021-03-02] MEDS: hyoscyamine ODT 0.125 mg Tablet PO (01:40)
[2021-03-02 01:49] LABS: Lactate (Lactic Acid level) 5.4 mmol/L (0.5-2.2)
[2021-03-02] MEDS: LORazepam 2 mg/mL INJ 1 mL 1 MG IVP (01:50)
[2021-03-02 01:51] LABS: Urine Creatinine 67 mg/dL (39-259)
[2021-03-02 01:54] LABS: Urine Random Sodium 19 mmol/L
[2021-03-02 01:55] LABS: SARS Covid-2 Antigen Negative (Negative)
--- NOTE | 2021-03-02 03:10 | PC.PHAR ---
Vancomycin is dosed at 1gm IVPB every 48 hours to produce a predicted trough level of 12.97 (population based pharmacokinetic analysis). A trough level has been ordered from the lab to be obtained before the fourth dose to confirm and adjust if needed.
[2021-03-02] MEDS: sodium chloride 0.9% 1,000 ML 100 ML IV ×4 (03:54→23:44)
[2021-03-02 07:03] LABS: Anion Gap 26.5 (5-19); Calcium 7.5 mg/dL (8.5-10.5); Carbon Dioxide 16 mmol/L (22-29); Chloride 91 mmol/L (98-107); Glomerular Filtration Rate 15.7 mL/min (90-130); Glucose 60 mg/dL (65-115); Osmolality Calculated 292 mOsm/kg (285-295); Potassium 4.5 mmol/L (3.5-5.1); Sodium 129 mmol/L (136-145)
[2021-03-02 07:09] LABS: Blood Urea Nitrogen 85 mg/dL (6-20)
--- NOTE | 2021-03-02 08:16 | PM.CONSULT ---
Providers/Reason For Consult Consulting Physician/Specialty*: Hiro Delaney MD, hospitalist Reason for Consult*: Management in emergency department pending transfer Requesting Physician: Dr. Geronimo Primary Care Provider: Dakotah Gordon MD History of Present Illness History of Present Illness Rk Orourke Sr is a 50 year old male who currently cannot give an adequate history who from records presented to the hospital with recurrent vomiting, and blood in emesis. It is unclear to me whether this was bright red blood or coffee ground material. Patient can awaken but has trouble keeping focus on any question. I am able to gather that he is nauseated and wants to rest in a hot tub. Review of Systems General: Reports: ROS unobtainable due to mental status (Currently not obtainable secondary to encephalopathy) Meds/Allergies Home Medications and Allergies Home Medications Medication Instructions Recorded Confirmed Last Taken Type acetaminophen 500 mg PO Q4H PRN 14 Days #25 tab 02/16/21 02/19/21 Unknown Rx doxycycline monohydrate 100 mg PO BID 03/02/21 03/02/21 Unknown History Allergies Allergy/AdvReac Type Severity Reaction Status Date / Time No Known Allergies Allergy Verified 02/19/21 08:18 Current Medications Current Medications Generic Name Dose Route Start Last Admin Trade Name Freq PRN Reason Stop Dose Admin Octreotide Acetate 500 mcg/ 101 mls @ 10.1 mls/hr 03/01/21 22:15 03/02/21 01:52 Sodium Chloride IV Infused .Q10H KD Infusion 50 MCG/HR Sodium Chloride 1,000 mls @ 100 mls/hr 03/02/21 02:00 03/02/21 03:54 Sodium Chloride 0.9% IV 03/02/21 21:59 100 mls/hr .Q10H KD Administration Vancomycin HCl 1,000 mg/ 250 mls @ 250 mls/hr 03/02/21 03:00 03/02/21 03:55 Sodium Chloride IV Not Given Q48H KD PFSH Acute PFSH: Medical History (Updated 03/02/21 @ 08:36 by Hiro Delaney MD) Abdominal pain Abdominal pain Acute pyelonephritis Broken clavicle Cardiomyopathy Constipated COPD (chronic obstructive pulmonary disease) Hepatitis B Leukocytosis Liver nodule Marijuana use Methamphetamine use Orchitis S/P ORIF (open reduction internal fixation) fracture Clavicle [address] Christa Left clavicle Testicular mass Tobacco dependency Transaminitis Surgical History No pertinent past surgical history Social History (Updated 03/02/21 @ 08:21 by Hiro Delaney MD) Smoking and tobacco status: current every day smoker Alcohol intake: never Substance/Drug Use: current Substance/Drug use type: Marijuana and Methamphetamine Vitals/I&O/Wt Last Vital Signs Temp 98.2 F 03/01/21 19:05 Pulse 125 H 03/02/21 08:03 Resp 16 03/02/21 08:03 BP 134/95 03/02/21 08:03 Pulse Ox 98 03/02/21 08:03 03/01/21 03/02/21 03/02/21 22:59 06:59 14:59 Intake Total 2201 / 2201 Balance 2201 / 2201 Weight last 48 hrs Weight 63.503 kg Physical Exam Narrative: EXAM NARRATIVE: General exam is an adult male who comes alert upon questioning but appears intoxicated. Rambles. HEENT: Atraumatic normocephalic. Pupils equally round. Oropharynx clear. Neck is supple no lymphadenopathy or thyromegaly Cardiovascular tachycardic, no murmur, regular Lungs are clear no wheezing no crackles Abdomen is soft. Slight generalized tenderness. No obvious organomegaly. demonstrates Rasheed. No evidence of swollen testicles. Extremities no cyanosis clubbing or edema, cap refill brisk Skin no rash Neuro no obvious focal deficits. Urinary Catheter Management^: Rasheed: Cath Placed During This Visit: yes Reason for Continuing Indwelling Catheter: Other Urinary Catheter Date of Insertion: 03/02/21 Urinary Catheter Time of Insertion: 00:15 Data Micro: Micro: Microbiology 03/01/21 22:01 Blood Culture - Pr eliminary Blood SPECIMEN COLLEC MANNY 03/01/21 22:00 Blood Culture - Pr eliminary Blood SPECIMEN [facility] Other Data: Other data: EKG demonstrates sinus tachycardia, nonspecific ST-T wave changes, right bundle branch block. INR 2.88 Ammonia level yesterday 63, CK 559, AST 1643, ALT 901, alk phos 311, total bili 1.4, lipase 62, TSH 1.5 Urinalysis with 10-15 reds otherwise negative. Urine drug screen positive for amphetamine and marijuana. Salicylate level less than 0.3, acetaminophen level less than 5, alcohol level less than 10 Rapid Covid negative Head CT negative Chest x-ray right upper lobe granuloma, left clavicle postsurgical changes, emphysema CT chest abdomen pelvis esophageal wall thickening, emphysema, coronary calcifications, heterogenous liver and kidneys Blood cultures were drawn A&P Assessment and plan (1) Hepatic failure: Etiology of hepatic failure unclear at this time. Has history of underlying hepatitis B. Methamphetamine could also induce. Acetaminophen level is currently undetectable. Continue supportive measures, daily INR and lab Check glucose every 6 hours and supplement as needed. Agree with hydration currently being given, but will need to monitor closely in the setting of cardiomyopathy. Patient's last EF was 35%. Elevate head of bed, reduce stimulation, Ativan as needed. Consider hypertonic saline if cerebral edema suspected to increase sodium Agree with transfer to tertiary care center with availability of hepatology Very well could have hepatic encephalopathy as well but lactulose currently contraindicated secondary to vomiting Repeat CBC, liver enzymes, ammonia Note that vancomycin, ceftriaxone have been initiated through the emergency department to cover for concern of infection. Blood cultures were done prior to the administration. Status: Acute (2) Hypoglycemia: Accu-Chek every 6 hours Status: Acute (3) Acute kidney injury: Continue hydration, monitor for fluid overload Rasheed has been placed, and urine is present. Continue to monitor output closely. Repeat CK Status: Acute (4) Acute encephalopathy: Etiology undetermined. Could be secondary to liver failure. Cannot rule out methamphetamine effect. CT head no acute findings. Status: Acute (5) Cardiomyopathy: Last ejection fraction 35%. Monitor for fluid overload. Status: Acute (6) Methamphetamine use: Monitor for withdrawal Status: Acute (7) Marijuana use: During my conversation with the patient he reports wanting to get in a hot tub. This may be secondary to his THC use. Cannot rule out that vomiting he had had prior to coming in was not cyclic vomiting associated with THC use. However, cerebral edema can also occur with liver failure which could generate nausea. Status: Acute (8) Hyponatremia: Sodium improving. Continue to follow closely. Status: Acute (9) Hematemesis: He had been given octreotide. Continue Protonix 40 mg IV every 12 hours Repeat CBC now I do not have any firm evidence that he has history of varices. Status: Acute Additional A&P Information Full code Prognosis guarded secondary to acute liver failure, acute kidney injury, encephalopathy, etc. Thank you for this consultation. Consult Attestations Medical Necessity Statement: Not applicable Time Spent in Patient Care: Greater than 35 minutes Coding Level of Care Code Acute Hide And Skin Processing Worker for Chg Fwd Diagnoses Hepatic failure K72.90 Hypoglycemia E16.2 Acute kidney injury N17.9 Acute encephalopathy G93.40 Cardiomyopathy I42.9 Methamphetamine use F15.10 Marijuana use F12.90 Hyponatremia E87.1 Hematemesis K92.0
[2021-03-02 08:34] LABS: Glucose Point of Care 49 mg/dL (70-110)
[2021-03-02 08:34] LABS: Alkaline Phosphatase 251 IU/L (40-130); Globulin 4.8 g/dL (1.3-4.6); Total Bilirubin 1.5 mg/dL (0.15-1.2); Total Protein 6.8 g/dL (6.6-8.7)
[2021-03-02] MEDS: pantoprazole 40 mg SDV IVP ×2 (08:38→23:07)
[2021-03-02] MEDS: sodium chloride 0.9% 1,000 ML 999 ML IV (08:38)
[2021-03-02 08:45] LABS: Alanine Aminotransferase 785 U/L (0-41)
[2021-03-02 08:46] LABS: Aspartate Amino Transferase 1104 U/L (0-40)
[2021-03-02 08:50] LABS: Creatine Phosphokinase 476 U/L (39-308)
--- NOTE | 2021-03-02 08:52 | PC.NURSE ---
CK 476, ERP notified.
[2021-03-02] MEDS: dextrose 50% syringe 50 mL 25 ML IVP (09:13)
[2021-03-02] MEDS: octreotide 500 MCG in sodium chloride 0.9% (100 ml) 100 ML 10.1 MCG IV ×2 (09:17→23:07)
[2021-03-02 09:34] LABS: Basophils # 0.1 10^3/uL (0.0-0.1); Basophils % 0.2 %; Hematocrit 31.1 % (42.0-52.0); Hemoglobin 9.9 g/dL (11.7-16.6); Lymphocytes # 1.4 10^3/uL (0.8-4.8); Lymphocytes % 6.3 %; Mean Corpuscular HGB Conc 31.8 g/dL (30.0-36.0); Mean Corpuscular Hemoglobin 30.9 pg (28.0-34.0); Mean Corpuscular Volume 97.2 fl (80-94); Monocytes # 0.6 10^3/uL (0.2-0.9); Monocytes % 2.5 %; Neutrophils # 19.98 10^3/uL (1.8-7.7); Neutrophils % 88.3 %; Nucleated Red Blood Cells # 0.1 /100WBC; Nucleated Red Blood Cells % 0.2 %; Platelet Count 214 10^3/cmm (130-400); Red Cell Distribution Width 17.2 % (12.1-15.1); White Blood Count 22.6 10^3/uL (4.0-10.0)
[2021-03-02 09:37] LABS: Acetaminophen < 5.0 ug/mL (10-30)
[2021-03-02 09:48] LABS: INR 3.53 (0.8-1.2)
[2021-03-02 09:52] LABS: Ammonia 69 umol/L (16-60)
[2021-03-02] MEDS: cefTRIAXone 2,000 MG in sodium chloride 0.9% (plus) 50 ML 100 MG IV (10:02)
[2021-03-02 10:10] LABS: Hepatitis A Antibody IgM Non-Reactive (Nonreactive); Hepatitis B Core IgM Non-Reactive (Nonreactive); Hepatitis C Virus Antibody Non-Reactive (Nonreactive)
--- NOTE | 2021-03-02 10:14 | PC.NURSE ---
CBG 100 at 10:00
[2021-03-02 10:17] LABS: Hepatitis B Surface Antigen Reactive (Nonreactive)
[2021-03-02 11:08] LABS: Glucose Point of Care 100 mg/dL (70-110)
[2021-03-02 11:51] LABS: Glucose Point of Care 105 mg/dL (70-110)
--- NOTE | 2021-03-02 11:51 | PC.NURSE ---
CBG 105 at approximately 1150
--- NOTE | 2021-03-02 17:30 | PC.NURSE ---
PT REMOVED HIS OWN KIM CATHETER. CATHETER INTACT. PT ALSO REMOVED HIS OWN IV FROM HIS R FOREARM. SITE IS NOT BRUISED AT THIS TIME.
[2021-03-02] MEDS: LORazepam 2 mg/mL INJ 1 mL IVP ×2 (18:13→23:46)
[2021-03-02 18:35] LABS: Calcium 7.3 mg/dL (8.5-10.5); Carbon Dioxide 14 mmol/L (22-29); Chloride 93 mmol/L (98-107); Glomerular Filtration Rate 14.4 mL/min (90-130); Glucose 69 mg/dL (65-115); Osmolality Calculated 293 mOsm/kg (285-295); Sodium 128 mmol/L (136-145)
[2021-03-02 18:35] LABS: Blood Gas Operator Identificat PE
[2021-03-02 18:43] LABS: Anion Gap 25.9 (5-19); Potassium 4.9 mmol/L (3.5-5.1)
[2021-03-02 18:44] LABS: Blood Urea Nitrogen 92 mg/dL (6-20)
--- NOTE | 2021-03-02 19:11 | PC.NURSE ---
Report from MATTHEW Blum
--- NOTE | 2021-03-02 19:25 | PM.CONSULT ---
Providers/Reason For Consult Consulting Physician/Specialty*: osiris almanza md / telenephrology Reason for Consult*: LUÍS, met acidosis, hyponatremia Attending Physician: Hiro Delaney MD Primary Care Provider: Dakotah Gordon MD History of Present Illness History of Present Illness Rk Orourke Sr is a 50 year old male hep b, recent trauma and epididymitis- given abx and went home on doxycycline. Pt admitted last night w/ Hematemesis and AMS. Pt found to have lactic acidosis, inc transaminases, LUÍS, hyponatremia, and inc AGMA. Pt has since stopped vomiting blood. pts ammonia was 69- pts u tox + for marijuana and amphetamines. Pt received ativan- he is confused, lethargic and can not give a hx. Review of Systems General: Reports: ROS unobtainable due to mental status Meds/Allergies Home Medications and Allergies Home Medications Medication Instructions Recorded Confirmed Last Taken Type acetaminophen 500 mg PO Q4H PRN 14 Days #25 tab 02/16/21 03/02/21 Unknown Rx doxycycline monohydrate 100 mg PO BID 03/02/21 03/02/21 Unknown History Allergies Allergy/AdvReac Type Severity Reaction Status Date / Time No Known Allergies Allergy Verified 02/19/21 08:18 Current Medications Current Medications Generic Name Dose Route Start Last Admin Trade Name Freq PRN Reason Stop Dose Admin Octreotide Acetate 500 mcg/ 101 mls @ 10.1 mls/hr 03/01/21 22:15 03/02/21 09:17 Sodium Chloride IV 50 mcg/hr .Q10H KD 10.1 mls/hr Administration 50 MCG/HR Vancomycin HCl 1,000 mg/ 250 mls @ 250 mls/hr 03/02/21 03:00 03/02/21 03:55 Sodium Chloride IV Not Given Q48H KD Sodium Chloride 1,000 mls @ 100 mls/hr 03/02/21 13:30 03/02/21 14:33 Sodium Chloride 0.9% IV 100 mls/hr .Q10H KD Administration Acetylcysteine 3,200 mg/ 516 mls @ 129 mls/hr 03/02/21 17:00 03/02/21 18:00 Dextrose IV 03/02/21 20:59 129 mls/hr ONCE ONE Administration Lorazepam 2 mg 03/02/21 08:32 03/02/21 18:13 Lorazepam 2 Mg/Ml Inj 1 Ml IVP 2 mg Q4H PRN Administration AGITATION Pantoprazole Sodium 40 mg 03/02/21 08:30 03/02/21 08:38 Pantoprazole 40 Mg Sdv IVP 40 mg Q12H KD Administration PFSH Acute PFSH: Medical History (Updated 03/02/21 @ 08:36 by Hiro Delaney MD) Abdominal pain Abdominal pain Acute pyelonephritis Broken clavicle Cardiomyopathy Constipated COPD (chronic obstructive pulmonary disease) Hepatitis B Leukocytosis Liver nodule Marijuana use Methamphetamine use Orchitis S/P ORIF (open reduction internal fixation) fracture Clavicle [address] Goodwin Left clavicle Testicular mass Tobacco dependency Transaminitis Surgical History No pertinent past surgical history Social History (Updated 03/02/21 @ 08:21 by Hiro Delaney MD) Smoking and tobacco status: current every day smoker Alcohol intake: never Substance/Drug Use: current Substance/Drug use type: Marijuana and Methamphetamine Vitals/I&O/Wt Last Vital Signs Temp 98.2 F 03/01/21 19:05 Pulse 109 H 03/02/21 18:25 Resp 17 03/02/21 17:35 BP 150/78 03/02/21 18:25 Pulse Ox 95 03/02/21 18:25 03/02/21 03/02/21 03/02/21 06:59 14:59 22:59 Intake Total 2201 / 2201 1000 / 1000 Balance 2201 / 2201 1000 / 1000 Weight last 48 hrs Weight 63.503 kg Physical Exam Narrative: EXAM NARRATIVE: lying comfortably in bed, NARD- confused, somnolent vss heent- nc/at, eomi, anicteric neck- supple lungs- clear b/l heart- reg, no rub abd soft, nt, nd, +BS ext no edema neuro= confused. responds to pain Urinary Catheter Management^: Rasheed: Cath Placed During This Visit: yes Reason for Continuing Indwelling Catheter: Other Urinary Catheter Date of Insertion: 03/02/21 Urinary Catheter Time of Insertion: 00:15 Data Micro: Micro: Microbiology 03/01/21 22:01 Blood Culture - Pr eliminary Blood SPECIMEN COLLEC MANNY 03/01/21 22:00 Blood Culture - Pr eliminary Blood SPECIMEN [facility] MANNY A&P Additional A&P Information 50 yr old man hep b+, recent pididymitis 1. GI bleed- per medicine- appears to have stopped 2. LUÍS- low ur na. -u/a w/ blood- can be from infection, bleed, or a GN- can get membranous GN or MPGN w/ hep b -can also be a post infectious GN -more likely prerenal from bleeding or HRS w/ concominant inc transaminases -no obstruction on ct scan -pt had a ct scan w/ contrast last night - i am concerned for GODWIN on to pof his LUÍS -recs- cont octreotide, give LR, and albumin -bp is good - no need for midodrine or norepinephrine -monitor labs -check complements 3. hyponatremia- likely prerenal- monitor w/ ivf -check tsh and cortisol levels 4. treat ammonia of 69- repeat level 5. elevated AGMA - from lactate of 5-6 and LUÍS- last night pH 7.45/31- w/ resp alaklosis -monitor lactate 6. treat infection -pt seen and examined w/ ER physician and RN- telehealth visit time spent 50 minutes Consult Attestations Medical Necessity Statement: ams, luís, inc lft's Time Spent in Patient Care: Greater than 35 minutes Coding Level of Care Code Acute Wire Brush Operator for Chg Jolynn
[2021-03-02 20:41] LABS: Ammonia 29 umol/L (16-60)
[2021-03-02 20:42] LABS: Albumin Level 1.9 g/dL (3.5-5.2); Alkaline Phosphatase 217 IU/L (40-130); Anion Gap 25.6 (5-19); Carbon Dioxide 14 mmol/L (22-29); Chloride 93 mmol/L (98-107); Globulin 4.5 g/dL (1.3-4.6); Glomerular Filtration Rate 14.8 mL/min (90-130); Glucose 107 mg/dL (65-115); Osmolality Calculated 296 mOsm/kg (285-295); Potassium 4.6 mmol/L (3.5-5.1); Sodium 128 mmol/L (136-145); Total Bilirubin 1.4 mg/dL (0.15-1.2); Total Protein 6.4 g/dL (6.6-8.7)
[2021-03-02 20:43] LABS: Blood Urea Nitrogen 94 mg/dL (6-20)
[2021-03-02 20:53] LABS: Alanine Aminotransferase 815 U/L (0-41)
[2021-03-02 20:56] LABS: Aspartate Amino Transferase 978 U/L (0-40)
[2021-03-02] MEDS: haloperidol inj 5 mg/mL INJ 1 mL 2 MG IM (22:45)
--- NOTE | 2021-03-02 22:46 | PC.NURSE ---
Pt placed in hospital bed for comfort.
[2021-03-02] MEDS: cefTRIAXone 1,000 MG in sodium chloride 0.9% (plus) 50 ML 100 MG IV (23:07)
[2021-03-03] VITALS (30 sets, daily range): BP systolic 122–148; BP diastolic 92–119; PULSE 109–115; RESP 16–33; TEMP 35.7–36.5; O2SAT 94–100
[2021-03-03] MEDS: haloperidol inj 5 mg/mL INJ 1 mL 2 MG IM ×2 (02:41→06:36)
[2021-03-03] MEDS: LORazepam 2 mg/mL INJ 1 mL IVP (03:45)
[2021-03-03 06:08] LABS: Basophils # 0.1 10^3/uL (0.0-0.1); Basophils % 0.2 %; Hematocrit 29.1 % (42.0-52.0); Hemoglobin 9.6 g/dL (11.7-16.6); Lymphocytes # 1.5 10^3/uL (0.8-4.8); Lymphocytes % 5.8 %; Mean Corpuscular Hemoglobin 31.6 pg (28.0-34.0); Mean Corpuscular Volume 95.7 fl (80-94); Mean Platelet Volume 10.4 fL (7.4-10.4); Monocytes # 1.1 10^3/uL (0.2-0.9); Monocytes % 4.2 %; Neutrophils # 21.97 10^3/uL (1.8-7.7); Neutrophils % 86.3 %; Nucleated Red Blood Cells # 0.1 /100WBC; Nucleated Red Blood Cells % 0.5 %; Platelet Count 133 10^3/cmm (130-400); Red Blood Count 3.04 10^6/uL (4.1-5.3); Red Cell Distribution Width 17.3 % (12.1-15.1); White Blood Count 25.5 10^3/uL (4.0-10.0)
[2021-03-03 06:19] LABS: INR 3.92 (0.8-1.2)
[2021-03-03] MEDS: sodium chloride 0.9% 1,000 ML 100 ML IV (06:25)
[2021-03-03 06:28] LABS: Complement C3 21 mg/dL (90-180)
[2021-03-03 06:33] LABS: Alkaline Phosphatase 217 IU/L (40-130); Anion Gap 27.7 (5-19); Carbon Dioxide 14 mmol/L (22-29); Chloride 91 mmol/L (98-107); Globulin 3.9 g/dL (1.3-4.6); Glucose 94 mg/dL (65-115); Osmolality Calculated 292 mOsm/kg (285-295); Potassium 4.7 mmol/L (3.5-5.1); Sodium 128 mmol/L (136-145); Total Bilirubin 1.5 mg/dL (0.15-1.2); Total Protein 5.9 g/dL (6.6-8.7)
[2021-03-03 06:35] LABS: Blood Urea Nitrogen 86 mg/dL (6-20)
[2021-03-03 06:36] LABS: Thyroid Stimulating Hormone 0.55 uIU/mL (0.27-4.20)
[2021-03-03 06:37] LABS: Cortisol Random 27.28 ug/dL (2.47-19.5)
[2021-03-03 06:48] LABS: Alanine Aminotransferase 849 U/L (0-41); Aspartate Amino Transferase 1046 U/L (0-40)
[2021-03-03 07:52] LABS: Glucose Point of Care 99 mg/dL (70-110)
[2021-03-03 08:15] LABS: Ammonia 56 umol/L (16-60)
[2021-03-03 08:40] LABS: Blood Gas Allen Test Pos; Blood Gas Sample Type Arterial; Oxygen Device ROOM AIR
--- NOTE | 2021-03-03 09:17 | P.PN_ITS ---
Subjective Subjective: Interval history: Patient appears confused this morning, and nurse relates he has been agitated at times. Unfortunately no transfer has been arranged at this time. Medications: Reviewed: Yes Vitals/I&O/Wt Last Vital Signs Temp 96.3 F L 03/03/21 07:33 Pulse 112 H 03/03/21 07:33 Resp 33 H 03/03/21 07:33 BP 133/112 03/03/21 07:33 Pulse Ox 94 03/03/21 07:33 03/02/21 03/03/21 03/03/21 22:59 06:59 14:59 Intake Total 101 / 1101 3302.666 / 4403.666 243.333 / 243.333 Balance 101 / 1101 3302.666 / 4403.666 243.333 / 243.333 Weight last 48 hrs Weight 63.503 kg Physical Exam Narrative: EXAM NARRATIVE: General exam confused male who attempts to speak but speech is not intelligible. Neck is supple no lymphadenopathy or thyromegaly Cardiovascular tachycardic, no murmur, regular Lungs are clear no wheezing no crackles Abdomen is soft. Slight generalized tenderness. No obvious organomegaly. demonstrates Rasheed. No evidence of swollen testicles. Extremities no cyanosis clubbing or edema, cap refill brisk Neuro no obvious focal deficits. Urinary Catheter Management^: Rasheed: Cath Placed During This Visit: yes Reason for Continuing Indwelling Catheter: Accurate Measurement of Urinary O utput in Critically Ill Patients Urinary Catheter Date of Insertion: 03/02/21 Urinary Catheter Time of Insertion: 00:15 Data : 03/03/21 06:00 03/03/21 06:00 Micro: Microbiology 03/01/21 22:01 Blood Culture - Preliminary Blood NEGATIVE TO DATE 03/01/21 22:00 Blood Culture - Preliminary Blood NEGATIVE TO DATE A&P Assessment and plan (1) Hepatic failure: Etiology of hepatic failure unclear at this time. Has history of underlying hepatitis B. Methamphetamine could also induce. Acetaminophen level is currently undetectable. Continue supportive measures, daily INR and lab. INR increasing. Blood sugars every 6 hours Monitor closely for fluid overload in the setting of cardiomyopathy. Patient's last EF was 35%. Elevate head of bed, reduce stimulation, Ativan as needed. On waiting list to transfer to tertiary care center with availability of hepatology Repeat ammonia level this morning Continue vancomycin and ceftriaxone. Blood cultures were done prior to the admi nistration. Continue octreotide, albumin Finishing course of acetylcysteine. Status: Acute (2) Hypoglycemia: Accu-Chek every 6 hours. If hypoglycemia occurs consider changing to D5 Status: Acute (3) Acute kidney injury: Continue hydration, monitor for fluid overload Rasheed has been placed, and urine is present. Continue to monitor output closely. Creatinine kinase not significantly elevated. He has worsening metabolic acidosis and I suspect he may need dialysis soon. We will touch base with nephrology. Status: Acute (4) Acute encephalopathy: Etiology likely multifactorial. Could be secondary to liver failure. Cannot rule out methamphetamine effect. CT head no acute findings. Status: Acute (5) Cardiomyopathy: Last ejection fraction 35%. Monitor for fluid overload. Status: Acute (6) Methamphetamine use: Monitor for withdrawal Status: Acute (7) Marijuana use: During my conversation with the patient he reports wanting to get in a hot tub. This may be secondary to his THC use. Cannot rule out that vomiting he had had prior to coming in was not cyclic vomiting associated with THC use. However, cerebral edema can also occur with liver failure which could generate nausea. Status: Acute (8) Hyponatremia: Sodium improved and stable at 128. Status: Acute (9) Hematemesis: He had been given octreotide. Continue Protonix 40 mg IV every 12 hours Hemoglobin is currently stable, and there has been no further evidence of hematemesis. I do not have any firm evidence that he has history of varices. Status: Acute Additional A&P Information Full code Prognosis guarded secondary to acute liver failure, acute kidney injury, encephalopathy, etc. Tried to obtain family but no answer on phone numbers in chart, answering message reports mailbox is full. Attestations Medical Necessity Statement*: Needs continued hospitalization secondary to severe liver and kidney failure as well as acute encephalopathy. Critical Care Time: Critical Care Time (min): 42 Other Attestations: The high probability of a clinically significant, sudden or life threatening deterioration of the patient's [liver, renal, neurologic] system(s) required my full and direct attention, intervention and personal management. The critical care time is as shown. This time is in addition to time spent performing any reported procedures but includes the following: [x] Data and vital sign review and interpretation [x] Patient assessment, examination and intervention [x] Documentation [x] Medication orders and management Coding Level of Care Code Acute Sourcing Coordinator for Chg Fwd Diagnoses Hepatic failure K72.90 Hypoglycemia E16.2 Acute kidney injury N17.9 Acute encephalopathy G93.40 Cardiomyopathy I42.9 Methamphetamine use F15.10 Marijuana use F12.90 Hyponatremia E87.1 Hematemesis K92.0
[2021-03-03] MEDS: pantoprazole 40 mg SDV IVP ×2 (09:30→20:23)
[2021-03-03] MEDS: lactated ringers 1,000 ML 100 ML IV (09:34)
--- NOTE | 2021-03-03 09:42 | PC.NURSE ---
ONE TO ONE SITTER DOCUMENTATION TO BE SCANNED INTO PAPER CHART.
[2021-03-03] MEDS: vecuronium 10 mg SDV IVP (10:22)
[2021-03-03] MEDS: propofol 1,000 MG/100 ML INJ 3.8 MG (10:32)
--- NOTE | 2021-03-03 10:39 | XR_ITS ---
WS: [id number] XR chest 1V portable [id number] REASON FOR EXAM: ET placement FINDINGS: Compared to the examination of 03/01/2021 and endotracheal tube is been placed the tip is at the level of the clavicular heads. Interstitial infiltrative changes are now seen in the right lower and right mid lung that were not id entifiable on the previous study. There may be some interstitial infiltrative changes developing in t he left lung, equivocal. XR/XR chest 1V portable [id number] IMPRESSION: Interval endotracheal tube. Interval pulmonary changes compatible with acute pneumonitis.
--- NOTE | 2021-03-03 10:41 | P.PCN_ITS ---
Procedure/Consent Consent: Consent for Procedure: Emergency procedure Procedure Narrative: Emergent procedure for endotracheal intubation secondary to apnea, desaturation with underlying acute kidney injury and acute liver failure. Patient received 20 mg of etomidate and 10 mg of vecuronium. He was then intubated with an 8 oh endotracheal tube with cough. Initial intubation attempt was successful however cuff leak was detected. He was then intubated a second t robin with success and tube secured at 22 cm. Following x-ray this was advanced to 24/25 cm. Breath sounds are noted bilaterally with color change. No complications. Acute Procedures Intubation: Time out performed: Yes Laryngoscope: fiber optic video scope ET tube size: 8 ET tube uncuffed: Yes Tube secured depth (cm): 25 Tube secured location: teeth Tube placement confirmation: visualized tube passing through cords, equal breath sounds bilaterally, no breath sounds over epigastrium, confirmation by capnometry and color change noted Patient tolerated procedure: well Intubation complications: none
--- NOTE | 2021-03-03 11:08 | PC.NURSE ---
1105-recd from ed
--- NOTE | 2021-03-03 11:14 | PC.NURSE ---
Two attempts made to contact family for consent of HD line placement. No answer. Due to critical nature Dr. Epstein performing emergently.
--- NOTE | 2021-03-03 11:16 | PC.NURSE ---
1024 PT INTUBATED WITH 8.0 ETT, CUFF BLOWN. 1025 PT 100% ON BAG 1027 PT RE-INTUBATED WITH NEW 8.0, 22.5CM AT TEETH
--- NOTE | 2021-03-03 11:18 | PC.NURSE ---
UPON ROUNDING AT 1015 PT APPEARED TO BE HAVING FELY-DIALLO RESPIRATIONS WITH O2 SATURATION @ 81. MD IN ROOM AND PT INTUBATED AT 1024.
[2021-03-03 11:45] LABS: ABG PH Result 7.25 (7.35-7.45); Alveolar-Arterial Oxygen Gradi 10.1 mmHg (5-10); Arterial Blood Gas Hematocrit 29.9 % (42-52); Base Excess ABG -11.5 mmol/L (-2.0-2.0); Blood Gas Allen Test Pos; Blood Gas Operator Identificat BD; Blood Gas Sample Site Brachial, left; Blood Gas Sample Type Arterial; Blood Gas Tidal Volume 0.45; Carboxyhemoglobin 0.8 %THgb (0.4-20.1); HCO3 ABG 14.8 mmol/L (22-26); HGB O2 Sat 99.1 % (95-100); Methemoglobin 0.7 % (0.4-1.5); Oxygen Device VENT; Oxygen Saturation ABG > 100.0; Potassium Level - ABG 4.5 mmol/L (3.5-5.0); Total Hemoglobin 9.8 g/dL (14-18)
--- NOTE | 2021-03-03 11:45 | PC.NURSE ---
1110 recd from e.d. intubated with 8.0 e.t. 25 at [facility].
--- NOTE | 2021-03-03 11:50 | XR_ITS ---
WS: [id number] XR chest 1V portable [id number] REASON FOR EXAM: o.g. tube placement FINDINGS: Compared to the examination of 1038 this a.m., nasogastric tube has been placed. The tip is in the an trum of the stomach. Stomach shows moderate gaseous distention. No other significant interval change compared to the previous examination. XR/XR chest 1V portable [id number] IMPRESSION: Nasogastric tube placement as above.
--- NOTE | 2021-03-03 12:23 | PM.ACPR ---
Procedure/Consent Time out: Time Out Performed: Yes Consent: Consent for Procedure: Emergency procedure Additional Consent Information: No family members could be reached after multiple attempts to contact them Procedure Narrative: Name of the procedure: Right femoral vein hemodialysis catheter insertion under ultrasound guidance. Medications: Lidocaine 1% 5 mL. IV medications: Fentanyl and Versed IV push Consent: Emergency procedure, no family members could be reached Description of the procedure: The right femoral vein was identified under ultrasound guidance with collapsibility and lack of pulsatility. The site was prepared using sterile technique and the patient was positioned optimally. The skin, subcutaneous tissue was anesthetized with 1% lidocaine. The introducer needle was then advanced under direct ultrasound guidance to flashback was noted. Dark nonpulsatile blood was noted. The guidewire was advanced through the needle and confirmed to be in the femoral vein with ultrasound. Using Seldinger technique the right internal jugular hemodialysis catheter was inserted. The catheter was sutured in place. The insertion length was 20 cm. Complications: None Blood loss: 3 mL Acute Procedures Epistaxis Control: Time out performed: Yes
--- NOTE | 2021-03-03 12:42 | PC.NURSE ---
ffp infusing. both units with overide d/t date. on each one.
[2021-03-03] MEDS: octreotide 500 MCG in sodium chloride 0.9% (100 ml) 100 ML 10.1 MCG IV ×2 (12:45→20:19)
--- NOTE | 2021-03-03 12:46 | PC.NURSE ---
1120-octekamini brought from [facility] to hang
[2021-03-03] MEDS: heparin, porcine 1,000 unit/mL INJ 10 mL XX (12:51)
[2021-03-03] MEDS: piperacillin-tazobactam 3.375 GM in sodium chloride 0.9% (plus) 50 ML IV ×2 (12:59→23:42)
[2021-03-03 13:21] LABS: Glucose Point of Care 108 mg/dL (70-110)
--- NOTE | 2021-03-03 14:29 | PC.NURSE ---
recd. minnie connolly from e.r., intubated, bagging into room then to vent per. rcrista gamboa in for hemo dialysis catheter placement, with right groin site of choice
[2021-03-03] MEDS: phytonadione (ADULT) 10 mg/mL Ampule 1 mL SUBCUT (15:00)
[2021-03-03] MEDS: dextrose 5%-sod chloride 0.9% 1,000 ML 75 ML IV (15:01)
[2021-03-03] MEDS: midazolam 1 mg/mL INJ 5 ML 5 MG (15:03)
--- NOTE | 2021-03-03 15:03 | PC.NURSE ---
,VERSED GIVEN PRE PROCEDURE FOR HEMODIALYSIS CATH INSERTION. BOTTLE TOSSED, UNABLE TO SCAN.
--- NOTE | 2021-03-03 15:26 | P.PN_ITS ---
Subjective Subjective: Interval history: Mr. Orourke remains very sick. He was intubated for protection of his airway this morning, transition to the intensive care unit for ongoing management. Unable to be transferred to tertiary care center for the his liver failure. Urine output remains minimal. Vitals/I&O/Wt Last Vital Signs Temp 97.5 F L 03/03/21 12:41 Pulse 110 H 03/03/21 14:00 Resp 18 03/03/21 14:00 BP 131/104 03/03/21 12:52 Pulse Ox 100 03/03/21 14:00 03/03/21 03/03/21 03/03/21 06:59 14:59 22:59 Intake Total 3302.666 / 4403.666 869.333 / 869.333 100 / 969.333 Balance 3302.666 / 4403.666 869.333 / 869.333 100 / 969.333 Weight last 48 hrs Weight 63.503 kg Physical Exam Narrative: EXAM NARRATIVE: Constitutional: Sedated and vented HEENT: Wet mucosa, no jvp, non icteric Lungs: Bilaterally wheeze, rales in all lung zones CVS: S1 S2, no murmurs Abdo: Soft, BS ok Ext 4: Minimal edema, peripheral perfusion with no cyanosis Neurological: Grossly non-focal Urinary Catheter Management^: Rasheed: Cath Placed During This Visit: yes Reason for Continuing Indwelling Catheter: Accurate Measurement of Urinary Output in Critically Ill Patients Urinary Catheter Date of Insertion: 03/02/21 Urinary Catheter Time of Insertion: 00:15 Data : 03/03/21 06:00 03/03/21 06:00 Micro: Microbiology 03/01/21 22:01 Blood Culture - Preliminary Blood NEGATIVE TO DATE 03/01/21 22:00 Blood Culture - Preliminary Blood NEGATIVE TO DATE A&P Additional A&P Information 1. Oliguric renal failure Picture is consistent with shock/hepatorenal syndrome, currently on maximal therapy, however, falling into renal failure with progressive acidosis. Although his prognosis is poor; at this time until he have more clarity on his clinical course, goals of care etc., will treat him aggressively with hemodialysis. We will do a gentle dialysis session today, to assist with his metabolic derangements including acidosis. Minimal ultrafiltration. We will evaluate for additional dialysis needs tomorrow morning. Avoid usual nephrotoxic agents Strict I's and O's Dose medication for GFR less than 15 on dialysis 2. Epididymitis Following recent trauma. Input from Dr. Gordon is appreciated. Currently on broad-spectrum antibiotics 3. Independent respiratory failure As we continue to treat his sepsis, metabolic derangements with dialysis, hopefully he should continue to make recovery and can be weaned off in the next few days. Management per the ICU team 4. Chemistry In a rate of biochemical abnormalities is appreciated including hyponatremia, anion gap metabolic acidosis, elevated phosphorus, corrected calcium is within normal limits. All of these should start to correct with effective hemodialysis 5. Hepatitis I appreciate the input from Dr. Dleaney. Hepatitis B positive, methamphetamine also on board. Possible transfer to facility with hepatology. On octreotide and albumin Jules Parr MD Nephrology [phone] Patient seen and examined via telemedicine, with the assistance of the bedside RN > 25 min spent in evaluation and mgmt of patient Attestations Medical Necessity Statement*: eval for LUÍS Coding Level of Care Code Acute Desktop Support Associate for Nicg Jolynn
[2021-03-03 15:35] LABS: ABG PCO2 37.4 mmHg (35-45); ABG PH Result 7.25 (7.35-7.45); HCO3 ABG 16.5 mmol/L (22-26); PO2 ABG 20.9 mmHg (80.0-100.0)
[2021-03-03 15:36] LABS: Arterial Blood Gas Hematocrit 29.9 % (42-52); Blood Gas Sample Site Brachial, left
[2021-03-04] VITALS (54 sets, daily range): BP systolic 117–132; BP diastolic 07–106; PULSE 103–126; RESP 18–25; TEMP 35.1–37.1; O2SAT 92–100
[2021-03-04] MEDS: dextrose 5%-sod chloride 0.9% 1,000 ML 75 ML IV ×2 (01:01→15:20)
[2021-03-04] MEDS: vancomycin 1,000 MG in sodium chloride 0.9% 250 ML 250 MG IV (02:29)
--- NOTE | 2021-03-04 03:48 | PC.NURSE ---
[facility] in [place] called and informed this nurse that patient is still on waiting list for bed
[2021-03-04 04:10] LABS: Blood Gas Operator Identificat JB; Blood Gas Sample Type Arterial; Blood Gas Tidal Volume 0.45; Oxygen Device VENT
[2021-03-04 04:18] LABS: Basophils # 0.1 10^3/uL (0.0-0.1); Basophils % 0.2 %; Eosinophils % 0.2 %; Hematocrit 28.7 % (42.0-52.0); Hemoglobin 9.2 g/dL (11.7-16.6); Lymphocytes # 1.2 10^3/uL (0.8-4.8); Mean Corpuscular HGB Conc 32.1 g/dL (30.0-36.0); Mean Corpuscular Hemoglobin 31.1 pg (28.0-34.0); Mean Platelet Volume 10.2 fL (7.4-10.4); Monocytes # 1.1 10^3/uL (0.2-0.9); Monocytes % 4.7 %; Neutrophils # 20.23 10^3/uL (1.8-7.7); Neutrophils % 85.8 %; Nucleated Red Blood Cells # 0.3 /100WBC; Nucleated Red Blood Cells % 1.2 %; Platelet Count 70 10^3/cmm (130-400); Red Blood Count 2.96 10^6/uL (4.1-5.3); Red Cell Distribution Width 18.2 % (12.1-15.1); White Blood Count 23.6 10^3/uL (4.0-10.0)
[2021-03-04 04:22] LABS: ABG PCO2 31.9 mmHg (35-45); ABG PH Result 7.34 (7.35-7.45); Arterial Blood Gas Hematocrit 27.2 % (42-52); Base Excess ABG -7.8 mmol/L (-2.0-2.0); Blood Gas Sample Site Femoral, left; HCO3 ABG 17.2 mmol/L (22-26)
[2021-03-04 04:29] LABS: INR 3.22 (0.8-1.2)
[2021-03-04 04:33] LABS: Albumin Level 3.1 g/dL (3.5-5.2); Alkaline Phosphatase 177 IU/L (40-130); Blood Urea Nitrogen 76 mg/dL (6-20); Calcium 7.3 mg/dL (8.5-10.5); Carbon Dioxide 16 mmol/L (22-29); Chloride 95 mmol/L (98-107); Glomerular Filtration Rate 13.7 mL/min (90-130); Glucose 80 mg/dL (65-115); Magnesium 2.1 mg/dL (1.7-2.3); Osmolality Calculated 296 mOsm/kg (285-295); Phosphorus 6.4 mg/dL (2.5-4.5); Sodium 132 mmol/L (136-145); Total Bilirubin 1.9 mg/dL (0.15-1.2); Total Protein 6.1 g/dL (6.6-8.7)
[2021-03-04 04:37] LABS: Anion Gap 25.1 (5-19); Potassium 4.1 mmol/L (3.5-5.1)
[2021-03-04 04:45] LABS: Alanine Aminotransferase 777 U/L (0-41)
[2021-03-04 04:46] LABS: Aspartate Amino Transferase 780 U/L (0-40)
[2021-03-04] MEDS: octreotide 500 MCG in sodium chloride 0.9% (100 ml) 100 ML 10.1 MCG IV ×2 (05:10→15:27)
--- NOTE | 2021-03-04 07:00 | XR_ITS ---
WS: [id number] XR chest 1V portable [id number] REASON FOR EXAM: follow up resp failure FINDINGS: Endotracheal tube and nasogastric tube remain in position. Interstitial infiltrative changes in both lower lung barth. Compared to previous examination 03/03/2021 consolidation is developing in the left lower lung with ob scuration of the left hemidiaphragmatic contour. There may also be a left pleural effusion. XR/XR chest 1V portable [id number] IMPRESSION: Interval development of consolidation left lower lobe and possibly left pleural effusion.
[2021-03-04] MEDS: pantoprazole 40 mg SDV IVP ×2 (09:53→20:12)
[2021-03-04] MEDS: thiamine 100 mg Tablet PO (09:53)
--- NOTE | 2021-03-04 10:29 | P.PN_ITS ---
Subjective Subjective: Interval history: VDRF, sister at bedside Medications: Reviewed: Yes Vitals/I&O/Wt Last Vital Signs Temp 95.1 F L 03/04/21 09:35 Pulse 106 H 03/04/21 10:00 Resp 18 03/04/21 10:00 BP 128/101 03/04/21 10:00 Pulse Ox 99 03/04/21 10:00 03/03/21 03/04/21 03/04/21 22:59 06:59 14:59 Intake Total 751 / 4362.112 2643 / 2721.333 3932 / 3932 Output Total 322 / 322 100 / 422 Balance 429 / 7923.393 4604 / 2299.333 3932 / 3932 Weight last 48 hrs Weight 69.4 kg Weight 67.8 kg Physical Exam Extremity: GENERAL: Yes edema Urinary Catheter Management^: Rasheed: Cath Placed During This Visit: yes Reason for Continuing Indwelling Catheter: Accurate Measurement of Urinary Output in Critically Ill Patients Urinary Catheter Date of Insertion: 03/02/21 Urinary Catheter Time of Insertion: 00:15 Data : 03/04/21 04:14 03/04/21 19:00 CXR: Radiologist's impression: LLL consolidation/effusion ABG Interpretation 1: 7.34/32/128 30%FIO2 A&P Additional A&P Information 1. Acute oligoanuric kidney injury, likely hepatorenal syndrome, I/O + 6 liters 2. Metabolic acidosis 3. Liver failure: hepatitis B + 4. VDRF, pneumonia PLan: initiate CVVHD via femoral vein dialysis catheter. Goal UF - 100 cc/hr as BP tolerates. Attestations Medical Necessity Statement*: critically ill in ICU Time Spent in Patient Care: Greater than 35 minutes Coding Level of Care Code Acute Label Fuser Tender for g Jolynn
--- NOTE | 2021-03-04 11:24 | P.PN_ITS ---
Subjective Subjective: Interval history: Rk is sedated on the ventilator. He has had no significant urine output. Medications: Reviewed: Yes Vitals/I&O/Wt Last Vital Signs Temp 95.1 F L 03/04/21 09:35 Pulse 106 H 03/04/21 10:00 Resp 18 03/04/21 10:00 BP 128/101 03/04/21 10:00 Pulse Ox 99 03/04/21 10:00 03/03/21 03/04/21 03/04/21 22:59 06:59 14:59 Intake Total 751 / 1706.616 6016 / 2721.333 3932 / 3932 Output Total 322 / 322 100 / 422 Balance 429 / 7321.247 9478 / 2299.333 3932 / 3932 Weight last 48 hrs Weight 69.4 kg Weight 67.8 kg Physical Exam Narrative: EXAM NARRATIVE: General exam sedated on the ventilator Neck is supple no lymphadenopathy or thyromegaly Cardiovascular tachycardic, no murmur, regular Lungs are clear no wheezing no crackles Abdomen is soft. Bowel sounds noted demonstrates Rasheed. No evidence of swollen testicles. Extremities no cyanosis clubbing or edema, cap refill brisk Neuro sedated on the ventilator Urinary Catheter Management^: Rasheed: Cath Placed During This Visit: yes Reason for Continuing Indwelling Catheter: Accurate Measurement of Urinary Output in Critically Ill Patients Urinary Catheter Date of Insertion: 03/02/21 Urinary Catheter Time of Insertion: 00:15 Data : 03/04/21 04:14 03/04/21 04:14 Micro: Microbiology 03/04/21 07:45 Gram Stain - Final Sputum - Endotracheal Tube Aspirate A&P Assessment and plan (1) Hepatic failure: Etiology of hepatic failure unclear at this time. Has history of underl jeanna hepatitis B. Methamphetamine could also induce. Acetaminophen level is currently undetectable.He received a course of acetylcysteine. Continue supportive measures, daily INR and lab. INR increasing. Blood sugars every 6 hours Monitor closely for fluid overload in the setting of cardiomyopathy. Patient's last EF was 35%. On waiting list to transfer to tertiary care center with availability of hepatology Continue vancomycin and ceftriaxone. Blood cultures were done prior to the administration. Check MRSA PCR. Continue octreotide, albumin Note that his thrombocytopenia has developed. Yeast noted on sputum culture. Add fluconazole. Status: Acute (2) Hypoglycemia: Accu-Chek every 6 hours. If hypoglycemia occurs consider changing to D5 Initiate oral feedings Status: Acute (3) Acute kidney injury: Continue hydration, monitor for fluid overload Rasheed has been placed, and urine is present. Continue to monitor output closely. Creatinine kinase not significantly elevated. Dialysis was initiated yesterday. CRRT planned today. Status: Acute (4) Acute encephalopathy: Etiology likely multifactorial. Could be secondary to liver failure. Cannot rule out methamphetamine effect. CT head no acute findings. Status: Acute (5) Cardiomyopathy: Last ejection fraction 35%. Monitor for fluid overload. Reduce fluids. Status: Acute (6) Methamphetamine use: Monitor for withdrawal Status: Acute (7) Marijuana use: During my conversation with the patient he reports wanting to get in a hot tub. This may be secondary to his THC use. Cannot rule out that vomiting he had had prior to coming in was not cyclic vomiting associated with THC use. However, cerebral edema can also occur with liver failure which could generate nausea. Status: Acute (8) Hyponatremia: Sodium improved, stable Status: Acute (9) Hematemesis: Continue Protonix 40 mg IV every 12 hours Hemoglobin is currently stable, and there has been no further evidence of hematemesis. I do not have any firm evidence that he has history of varices. Status: Acute Additional A&P Information Pneumonia. Apparent left lower lobe consolidation on chest x-ray today. Continue vancomycin, Zosyn. Await sputum culture. Check MRSA PCR. Continue ventilator currently. Full code Prognosis guarded secondary to acute liver failure, acute kidney injury, encephalopathy, etc. I was able to discuss this with his sister fully today. SCDs for DVT prophylaxis. Attestations Medical Necessity Statement*: Needs continued hospitalization secondary to respiratory failure requiring mechanical ventilation, liver and kidney failure. Critical Care Time: Critical Care Time (min): 35 Other Attestations: The high probability of a clinically significant, sudden or life threatening deterioration of the patient's [pulmonary, renal, hepatic] system(s) required my full and direct attention, intervention and personal management. The critical care time is as shown. This time is in addition to time spent performing any reported procedures but includes the following: [x] Data and vital sign review and interpretation [x] Patient assessment, examination and intervention [x] Documentation [x] Medication orders and management Coding Level of Care Code Acute Sales Technician Home Theater for Donny Neil Diagnoses Hepatic failure K72.90 Hypoglycemia E16.2 Acute kidney injury N17.9 Acute encephalopathy G93.40 Cardiomyopathy I42.9 Methamphetamine use F15.10 Marijuana use F12.90 Hyponatremia E87.1 Hematemesis K92.0
[2021-03-04] MEDS: piperacillin-tazobactam 3.375 GM in sodium chloride 0.9% (plus) 50 ML IV ×2 (12:03→22:48)
[2021-03-04 13:06] LABS: Albumin Level 2.9 g/dL (3.5-5.2); Anion Gap 21.1 (5-19); Calcium 7.6 mg/dL (8.5-10.5); Carbon Dioxide 17 mmol/L (22-29); Chloride 98 mmol/L (98-107); Glomerular Filtration Rate 12.7 mL/min (90-130); Glucose 72 mg/dL (65-115); Magnesium 2.2 mg/dL (1.7-2.3); Phosphorus 5.9 mg/dL (2.5-4.5); Potassium 4.1 mmol/L (3.5-5.1); Sodium 132 mmol/L (136-145)
[2021-03-04 13:11] LABS: Blood Urea Nitrogen 86 mg/dL (6-20)
[2021-03-04] MEDS: fluconazole premix 200 MG/100 ML PREMIX 100 MG IV (13:45)
[2021-03-04] MEDS: sodium chloride 0.9% 1,000 mL Bag CRRT (14:16)
[2021-03-04] MEDS: PrismaSol BGK 4/2.5 - 5,000 mL Bag 5000 ML CRRT ×2 (14:16→20:36)
[2021-03-04] MEDS: propofol 1,000 MG/100 ML INJ 11.43 MG IV (15:24)
[2021-03-04 15:29] LABS: Anti-Double Strand DNA AB 1 IU/mL; Anti-streptolysin O 564 IU/mL (<200)
--- NOTE | 2021-03-04 16:07 | PC.NUTR ---
Tube feeding recommendation: Recommend increase Nepro by 10 ml/hr q 8 hrs as tolerated to goal rate of 35 ml/hr to provide 1512 kcal, 68 g protein, 609 ml H2O. Additional H2O flushes per MD discretion. Propofol at 11.43 ml/hr providing 302 kcal/day, although nurse states likely to decrease rate soon. See full RD assessment for further details.
[2021-03-04 16:13] LABS: Anti-Nuclear Antibody Screen NEGATIVE (NEGATIVE)
[2021-03-04 17:33] LABS: Glucose Point of Care 79 mg/dL (70-110)
[2021-03-04 19:41] LABS: Albumin Level 2.9 g/dL (3.5-5.2); Blood Urea Nitrogen 80 mg/dL (6-20); Calcium 7.5 mg/dL (8.5-10.5); Carbon Dioxide 18 mmol/L (22-29); Chloride 97 mmol/L (98-107); Glomerular Filtration Rate 13.7 mL/min (90-130); Glucose 58 mg/dL (65-115); Phosphorus 5.1 mg/dL (2.5-4.5); Sodium 132 mmol/L (136-145)
[2021-03-05] VITALS (54 sets, daily range): BP systolic 104–131; BP diastolic 66–100; PULSE 93–110; RESP 18; TEMP 36.5–37.1; O2SAT 91–100
[2021-03-05 00:53] LABS: Anion Gap 18.8 (5-19); Blood Urea Nitrogen 67 mg/dL (6-20); Calcium 7.5 mg/dL (8.5-10.5); Carbon Dioxide 18 mmol/L (22-29); Chloride 99 mmol/L (98-107); Glomerular Filtration Rate 13.7 mL/min (90-130); Glucose 72 mg/dL (65-115); Magnesium 2.1 mg/dL (1.7-2.3); Phosphorus 4.8 mg/dL (2.5-4.5); Potassium 3.8 mmol/L (3.5-5.1); Sodium 132 mmol/L (136-145)
[2021-03-05] MEDS: octreotide 500 MCG in sodium chloride 0.9% (100 ml) 100 ML 10.1 MCG IV ×3 (01:28→21:48)
[2021-03-05 01:36] LABS: Glucose Point of Care 81 mg/dL (70-110)
[2021-03-05] MEDS: propofol 1,000 MG/100 ML INJ 7.62 MG IV ×2 (03:30→15:08)
[2021-03-05 04:39] LABS: Glucose Point of Care 94 mg/dL (70-110)
[2021-03-05 05:04] LABS: ABG PCO2 32.1 mmHg (35-45); ABG PH Result 7.38 (7.35-7.45); Base Excess ABG -5.4 mmol/L (-2.0-2.0); Blood Gas Allen Test Pos; Blood Gas Operator Identificat JB; Blood Gas Sample Site Radial, left; Blood Gas Sample Type Arterial; Blood Gas Tidal Volume 0.45; Oxygen Device VENT
[2021-03-05 05:47] LABS: Basophils # 0.1 10^3/uL (0.0-0.1); Basophils % 0.2 %; Eosinophils # 0.1 10^3/uL (0.0-0.8); Eosinophils % 0.2 %; Hematocrit 26.5 % (42.0-52.0); Hemoglobin 8.5 g/dL (11.7-16.6); Lymphocytes % 3.7 %; Mean Corpuscular HGB Conc 32.1 g/dL (30.0-36.0); Mean Corpuscular Hemoglobin 31.6 pg (28.0-34.0); Mean Corpuscular Volume 98.5 fl (80-94); Mean Platelet Volume 11.1 fL (7.4-10.4); Monocytes # 0.7 10^3/uL (0.2-0.9); Monocytes % 2.7 %; Neutrophils # 22.92 10^3/uL (1.8-7.7); Neutrophils % 89.1 %; Nucleated Red Blood Cells # 0.1 /100WBC; Nucleated Red Blood Cells % 0.5 %; Platelet Count 63 10^3/cmm (130-400); Red Blood Count 2.69 10^6/uL (4.1-5.3); Red Cell Distribution Width 19.5 % (12.1-15.1); White Blood Count 25.7 10^3/uL (4.0-10.0)
[2021-03-05 06:12] LABS: Albumin Level 3.3 g/dL (3.5-5.2); Anion Gap 19.8 (5-19); Blood Urea Nitrogen 62 mg/dL (6-20); Calcium 7.7 mg/dL (8.5-10.5); Carbon Dioxide 18 mmol/L (22-29); Chloride 98 mmol/L (98-107); Glomerular Filtration Rate 15.2 mL/min (90-130); Glucose 78 mg/dL (65-115); Magnesium 2.1 mg/dL (1.7-2.3); Phosphorus 4.6 mg/dL (2.5-4.5); Potassium 3.8 mmol/L (3.5-5.1); Sodium 132 mmol/L (136-145)
[2021-03-05] MEDS: PrismaSol BGK 4/2.5 - 5,000 mL Bag 5000 ML CRRT ×3 (06:36→20:56)
--- NOTE | 2021-03-05 07:00 | XR_ITS ---
WS: [id number] XR chest 1V portable [id number] REASON FOR EXAM: resp failure FINDINGS: Endotracheal tube and nasogastric tube remain in position. Compared to the previous examination of 03/04/2021 the interstitial infiltrative changes in the right lower lung are becoming more confluent and dense. There continues to be interstitial infiltrative density centrally in the left lung and consolidation in the left lower lung obscuring the left hemidiaphragm. Likely there are bilateral pleural effusions. XR/XR chest 1V portable [id number] IMPRESSION: There is been progression of lung opacities in the right lower lung. The remain sandi of the abnormal examination is relatively stable.
[2021-03-05 07:21] LABS: Alanine Aminotransferase 540 U/L (0-41); Albumin Level 3.4 g/dL (3.5-5.2); Alkaline Phosphatase 154 IU/L (40-130); Aspartate Amino Transferase 433 U/L (0-40); Globulin 2.6 g/dL (1.3-4.6); Total Bilirubin 2.7 mg/dL (0.15-1.2)
--- NOTE | 2021-03-05 07:46 | PC.NURSE ---
Shift Note Frequent safety and comfort rounds continue. Orders and/or nursing care completed as indicated. Patient monitored for response to intervention and treatment(s). Education provided includes, CRRT, infection control, ventilation, sedation and sedation vacation. Patient and/or event sales representative verbally understand. Will continue to monitor. Received bed side shift report from off going nurse. Pt's plan of care reviewed. Pt is currently intubated and sedated. Respirations are even and unlabored. No s/sx of distress noted. Pt appears to be resting comfortably at this time. Pt continues to be on CRRT and appears to be tolerating it well. No noted events over night per cage shift manager nurse. Bed in lowest and locked position, call light within reach, x's 2 rails up. Bed alarm on. Will continue to monitor pt.
[2021-03-05] MEDS: pantoprazole 40 mg SDV IVP ×2 (08:26→19:34)
[2021-03-05] MEDS: thiamine 100 mg Tablet PO (08:27)
--- NOTE | 2021-03-05 10:43 | P.PN_ITS ---
Subjective Subjective: Interval history: Seen and examined on CRRT. Tolerating procedure well. Vitals remain stable off pressors FiO2 24%. No urine output Global anasarca Medications: Reviewed: Yes Vitals/I&O/Wt Last Vital Signs Temp 97.7 F 03/05/21 07:00 Pulse 108 H 03/05/21 10:00 Resp 18 03/05/21 08:58 BP 121/86 03/05/21 10:00 Pulse Ox 91 03/05/21 10:00 03/04/21 03/05/21 03/05/21 22:59 06:59 14:59 Intake Total 476.146 / 5508.146 325.854 / 5834.000 1000 / 1000 Output Total 50 / 50 Balance 426.146 / 5458.146 325.854 / 5784.000 1000 / 1000 Weight last 48 hrs Weight 74.843 kg Weight 70.307 kg Weight 69.4 kg Weight 67.8 kg Physical Exam Narrative: EXAM NARRATIVE: Constitutional: Sedated and vented HEENT: Wet mucosa, no jvp, non icteric Lungs: Bilaterally wheeze, rales in all lung zones CVS: S1 S2, no murmurs Abdo: Soft, BS ok Ext 4: Minimal edema, peripheral perfusion with no cyanosis Neurological: Grossly non-focal Urinary Catheter Management^: Rasheed: Cath Placed During This Visit: yes Reason for Continuing Indwelling Catheter: Accurate Measurement of Urinary Output in Critically Ill Patients Urinary Catheter Date of Insertion: 03/02/21 Urinary Catheter Time of Insertion: 00:15 Data : 03/05/21 05:25 03/05/21 05:25 Micro: Microbiology 03/04/21 07:45 Gram Stain - Final Sputum - Endotracheal Tube Aspirate Sputum Culture - Preliminary Yeast A&P Additional A&P Information 1. Oliguric renal failure Picture is consistent with shock/hepatorenal syndrome, currently on maximal the rapy, however, falling into renal failure with progressive acidosis. Seen on CRRT 100mL/hr of dialysate flow UF 200mL/hr No pre/post No anticoagulation 4K Prismasol If machine clots will DC and re-eval in the am Avoid usual nephrotoxic agents Strict I's and O's Dose medication for GFR less than 15 on dialysis 2. Epididymitis Following recent trauma. Input from Dr. Gordon is appreciated. Currently on broad-spectrum antibiotics 3. Independent respiratory failure As we continue to treat his sepsis, metabolic derangements with dialysis, hopefully he should continue to make recovery and can be weaned off in the next few days. Management per the ICU team 4. Chemistry HypoNa and AGMA; both improving with supportive care and CRRT Close monitoring while on CRRT 5. Hepatitis I appreciate the input from Dr. Delaney. Hepatitis B positive, methamphetamine also on board. Possible transfer to facility with hepatology. On octreotide and albumin Pending transfer to liver team Jules Parr MD Nephrology [phone] Patient seen and examined via telemedicine, with the assistance of the bedside RN > 25 min spent in evaluation and mgmt of patient Attestations Medical Necessity Statement*: eval for renal failure Coding Level of Care Code Acute Photoresist Printer for Donny Neil
[2021-03-05] MEDS: piperacillin-tazobactam 3.375 GM in sodium chloride 0.9% (plus) 50 ML IV (11:50)
[2021-03-05 12:18] LABS: Glucose Point of Care 88 mg/dL (70-110)
[2021-03-05 12:19] LABS: Albumin Level 3.2 g/dL (3.5-5.2); Anion Gap 17.9 (5-19); Blood Urea Nitrogen 68 mg/dL (6-20); Calcium 8.1 mg/dL (8.5-10.5); Carbon Dioxide 21 mmol/L (22-29); Chloride 99 mmol/L (98-107); Glomerular Filtration Rate 16.6 mL/min (90-130); Glucose 81 mg/dL (65-115); Magnesium 2.3 mg/dL (1.7-2.3); Phosphorus 4.1 mg/dL (2.5-4.5); Potassium 3.9 mmol/L (3.5-5.1); Sodium 134 mmol/L (136-145)
--- NOTE | 2021-03-05 12:49 | PM.PN ---
Subjective Subjective: Interval history: Rk is sedated on the ventilator. From my understanding talking with the nurse he did come alert yesterday when sedation was lessened and he was able to follow a few instructions and try to communicate. Medications: Reviewed: Yes Vitals/I&O/Wt Last Vital Signs Temp 98.8 F 03/05/21 12:00 Pulse 110 H 03/05/21 12:30 Resp 18 03/05/21 12:00 BP 104/76 03/05/21 12:30 Pulse Ox 93 03/05/21 12:30 03/04/21 03/05/21 03/05/21 22:59 06:59 14:59 Intake Total 476.146 / 5508.146 325.854 / 5834.000 1101 / 1101 Output Total 50 / 50 Balance 426.146 / 5458.146 325.854 / 5784.000 1101 / 1101 Weight last 48 hrs Weight 74.843 kg Weight 70.307 kg Weight 69.4 kg Weight 67.8 kg Physical Exam Narrative: EXAM NARRATIVE: General exam sedated on the ventilator Neck is supple no lymphadenopathy or thyromegaly Cardiovascular tachycardic, no murmur, regular Lungs are clear no wheezing no crackles Abdomen is soft. Bowel sounds noted demonstrates Rasheed. No evidence of swollen testicles. Right femoral temporary dialysis catheter noted Extremities no cyanosis clubbing or edema, cap refill brisk Neuro sedated on the ventilator Urinary Catheter Management^: Rasheed: Cath Placed During This Visit: yes Reason for Continuing Indwelling Catheter: Accurate Measurement of Urinary Output in Critically Ill Patients Urinary Catheter Date of Insertion: 03/02/21 Urinary Catheter Time of Insertion: 00:15 Data : 03/05/21 05:25 03/05/21 11:54 Micro: Microbiology 03/04/21 17:15 MRSA Culture - Final Nose 03/04/21 07:45 Gram Stain - Final Sputum - Endotracheal Tube Aspirate Sputum Culture - Preliminary Yeast A&P Assessment and plan (1) Hepatic failure: Etiology of hepatic failure unclear at this time. Has history of underlying hepatitis B. Methamphetamine could also induce. Acetaminophen level is currently undetectable.He received a course of acetylcysteine. Continue supportive measures, daily INR and lab. INR did decrease with vitamin K. Repeat level tomorrow. Blood sugars every 6 hours Monitor closely for fluid overload in the setting of cardiomyopathy. Patient's last EF was 35%. On waiting list to transfer to tertiary care center with availability of hepatology On vancomycin and Zosyn. Blood cultures were done prior to the administration. Blood cultures negative to date. MRSA PCR negative. Discontinue vancomycin. Continue octreotide, albumin Note that thrombocytopenia has developed, and slightly worse today Yeast noted on sputum culture. Fluconazole added yesterday Status: Acute (2) Hypoglycemia: Accu-Chek every 6 hours. Advance feeds. Discontinue D5. Initiate oral feedings. Current goal 35 cc an hour Status: Acute (3) Acute kidney injury: Probable hepatorenal failure Appreciate nephrology input Continue to monitor output closely. Creatinine kinase not significantly elevated. Dialysis was initiated March 03. CRRT initiated March 04 Status: Acute (4) Acute encephalopathy: Etiology likely multifactorial. Could be secondary to liver failure. Cannot rule out methamphetamine effect. CT head no acute findings. Repeat ammonia level tomorrow Status: Acute (5) Cardiomyopathy: Last ejection fraction 35%. Monitor for fluid overload. Reduce fluids. Status: Acute (6) Methamphetamine use: Monitor for withdrawal Status: Acute (7) Marijuana use: During my conversation with the patient he reports wanting to get in a hot tub. This may be secondary to his THC use. Cannot rule out that vomiting he had had prior to coming in was not cyclic vomiting associated with THC use. However, cerebral edema can also occur with liver failure which could generate nausea. Status: Acute (8) Hyponatremia: Sodium improved, stable Status: Acute (9) Hematemesis: On Protonix 40 mg IV every 12 hours Hemoglobin is currently stable, and there has been no further evidence of hematemesis. I do not have any firm evidence that he has history of varices. Status: Acute Additional A&P Information Pneumonia. Apparent left lower lobe consolidation on chest x-ray today. White blood cell count continues to remain elevated. MRSA PCR negative. Discontinue vancomycin. Change Zosyn to Primaxin. Continue ventilator currently, wean if improvement in hepatorenal syndrome is noted. Do not want to attempt extubation prior to potential transfer. Pneumonia appears somewhat worse radiographically. Although he had a rapid Covid that was negative and on admission and a PCR that was negative at the end of January I feel compelled to check another Covid PCR considering bilateral infiltrates. These may be secondary to fluid overload however. Full code Prognosis guarded secondary to acute liver failure, acute kidney injury, encephalopathy, etc. I was able to discuss this with his sister. SCDs for DVT prophylaxis. Attestations Medical Necessity Statement*: Needs continued hospitalization secondary to pneumonia requiring IV antibiotics, mechanical ventilation, hepatorenal syndrome. Critical Care Time: The high probability of a clinically significant, sudden or life threatening deterioration of the patient's [renal, hepatic, pulmonary] system(s) required my full and direct attention, intervention and personal management. The critical care time is as shown. This time is in addition to time spent performing any reported procedures but includes the following: [x] Data and vital sign review and interpretation [x] Patient assessment, examination and intervention [x] Documentation [x] Medication orders and management Critical Care Time (min): 37 Coding Level of Care Code Acute Pipe Organ Installer for [facility] Fwd Diagnoses Hepatic failure K72.90 Hypoglycemia E16.2 Acute kidney injury N17.9 Acute encephalopathy G93.40 Cardiomyopathy I42.9 Methamphetamine use F15.10 Marijuana use F12.90 Hyponatremia E87.1 Hematemesis K92.0
[2021-03-05] MEDS: fluconazole premix 200 MG/100 ML PREMIX 100 MG IV (13:58)
--- NOTE | 2021-03-05 16:19 | PC.RESP ---
SMOKING CESSATION AND PULMONARY REHAB INFORMATION SENT TO PATIENT.
[2021-03-05 17:23] LABS: Glucose Point of Care 97 mg/dL (70-110)
[2021-03-05 19:11] LABS: Albumin Level 3.3 g/dL (3.5-5.2); Blood Urea Nitrogen 62 mg/dL (6-20); Carbon Dioxide 21 mmol/L (22-29); Chloride 99 mmol/L (98-107); Glomerular Filtration Rate 17.6 mL/min (90-130); Glucose 74 mg/dL (65-115); Magnesium 2.3 mg/dL (1.7-2.3); Phosphorus 3.8 mg/dL (2.5-4.5); Sodium 135 mmol/L (136-145)
[2021-03-06] VITALS (46 sets, daily range): BP systolic 107–123; BP diastolic 78–92; PULSE 90–115; RESP 18; TEMP 36.4–36.8; O2SAT 93–100
[2021-03-06 00:58] LABS: Albumin Level 3.3 g/dL (3.5-5.2); Anion Gap 15.7 (5-19); Blood Urea Nitrogen 53 mg/dL (6-20); Calcium 8.2 mg/dL (8.5-10.5); Carbon Dioxide 21 mmol/L (22-29); Chloride 99 mmol/L (98-107); Glomerular Filtration Rate 16.6 mL/min (90-130); Glucose 87 mg/dL (65-115); Magnesium 2.3 mg/dL (1.7-2.3); Phosphorus 3.7 mg/dL (2.5-4.5); Potassium 3.7 mmol/L (3.5-5.1); Sodium 132 mmol/L (136-145)
--- NOTE | 2021-03-06 02:20 | PC.NURSE ---
approximately 0000 CRRT access line extremely negative, attempted to reposition patient which did not improve access pressure, marylin flex help line contacted, this nurse was advised to decrease blood rate to 150 ml/min, negative pressure alarm continued, access line was aspirated per instruction no obstruction found, access and return lines were swapped per instruction, negative pressure alarm stopped. attempted to increase blood flow back to 200 but pressure became extremely negative again, continued at previous 150 ml/min, unable to reposition patient at this time without access pressure becoming too negative again.
[2021-03-06 04:18] LABS: Basophils % 0.1 %; Eosinophils # 0.1 10^3/uL (0.0-0.8); Eosinophils % 0.6 %; Hematocrit 24.7 % (42.0-52.0); Lymphocytes # 0.9 10^3/uL (0.8-4.8); Lymphocytes % 4.7 %; Mean Corpuscular HGB Conc 32.4 g/dL (30.0-36.0); Mean Corpuscular Hemoglobin 31.5 pg (28.0-34.0); Mean Corpuscular Volume 97.2 fl (80-94); Mean Platelet Volume 11.6 fL (7.4-10.4); Monocytes # 0.6 10^3/uL (0.2-0.9); Monocytes % 2.8 %; Neutrophils # 17.23 10^3/uL (1.8-7.7); Neutrophils % 87.6 %; Nucleated Red Blood Cells % 0.2 %; Platelet Count 64 10^3/cmm (130-400); Red Blood Count 2.54 10^6/uL (4.1-5.3); Red Cell Distribution Width 20.5 % (12.1-15.1); White Blood Count 19.7 10^3/uL (4.0-10.0)
[2021-03-06 04:29] LABS: INR 2.13 (0.8-1.2)
[2021-03-06 04:37] LABS: Alanine Aminotransferase 317 U/L (0-41); Albumin Level 3.2 g/dL (3.5-5.2); Alkaline Phosphatase 182 IU/L (40-130); Ammonia 31 umol/L (16-60); Anion Gap 16.7 (5-19); Aspartate Amino Transferase 157 U/L (0-40); Blood Urea Nitrogen 56 mg/dL (6-20); Calcium 8.2 mg/dL (8.5-10.5); Carbon Dioxide 20 mmol/L (22-29); Chloride 99 mmol/L (98-107); Globulin 2.4 g/dL (1.3-4.6); Glomerular Filtration Rate 16.1 mL/min (90-130); Glucose 88 mg/dL (65-115); Osmolality Calculated 289 mOsm/kg (285-295); Potassium 3.7 mmol/L (3.5-5.1); Sodium 132 mmol/L (136-145); Total Protein 5.6 g/dL (6.6-8.7)
[2021-03-06 06:30] LABS: Glucose Point of Care 108 mg/dL (70-110)
--- NOTE | 2021-03-06 06:41 | PC.NURSE ---
CRRT failed self test, disconnection alarm going of and unable to correct, large clots noted in set, CRRT discontinued per nephrology note
[2021-03-06] MEDS: octreotide 500 MCG in sodium chloride 0.9% (100 ml) 100 ML 10.1 MCG IV ×2 (07:32→17:52)
[2021-03-06] MEDS: thiamine 100 mg Tablet PO (07:41)
[2021-03-06] MEDS: pantoprazole 40 mg SDV IVP ×2 (07:41→20:10)
[2021-03-06 10:57] LABS: Blood Urea Nitrogen 66 mg/dL (6-20); Calcium 8.2 mg/dL (8.5-10.5); Carbon Dioxide 20 mmol/L (22-29); Chloride 100 mmol/L (98-107); Glomerular Filtration Rate 15.7 mL/min (90-130); Glucose 106 mg/dL (65-115); Magnesium 2.4 mg/dL (1.7-2.3); Phosphorus 4.3 mg/dL (2.5-4.5); Sodium 134 mmol/L (136-145)
--- NOTE | 2021-03-06 12:37 | PC.NUTR ---
Nutrition note: Current TF: Nepro 1.8 @ 20 ml/hr provides 864 kcals, 39 g prot, 348 ml H2O which provides 50% of PT's est. kcal and protein needs. If medically appropriate and if PT tolerating TF, recommend increasing goal rate to Nepro 1.8 @ 30 ml/hr which will provide 1296 kcals (74% est kcal needs), 58 g protein (75% est prot needs), and 522 ml H2O with additional water flushes at MD discretion.
[2021-03-06 12:56] LABS: Glucose Point of Care 103 mg/dL (70-110)
[2021-03-06] MEDS: fluconazole premix 200 MG/100 ML PREMIX 100 MG IV (14:04)
[2021-03-06 14:38] LABS: Albumin Level 3.2 g/dL (3.5-5.2); Anion Gap 19.2 (5-19); Blood Urea Nitrogen 68 mg/dL (6-20); Calcium 8.2 mg/dL (8.5-10.5); Carbon Dioxide 19 mmol/L (22-29); Chloride 99 mmol/L (98-107); Glomerular Filtration Rate 13.7 mL/min (90-130); Glucose 93 mg/dL (65-115); Magnesium 2.5 mg/dL (1.7-2.3); Phosphorus 4.6 mg/dL (2.5-4.5); Potassium 4.2 mmol/L (3.5-5.1); Sodium 133 mmol/L (136-145)
[2021-03-06] MEDS: propofol 1,000 MG/100 ML INJ 7.62 MG IV (14:51)
--- NOTE | 2021-03-06 16:58 | P.PN_ITS ---
Subjective Subjective: Interval history: I am seeing him in follow up for his renal failure. CRRT was stopped after it clotted. No new issues Medications: Reviewed: Yes Vitals/I&O/Wt Last Vital Signs Temp 98.0 F 03/06/21 12:30 Pulse 107 H 03/06/21 16:00 Resp 18 03/06/21 12:00 BP 111/78 03/06/21 16:00 Pulse Ox 98 03/06/21 16:00 03/06/21 03/06/21 03/06/21 06:59 14:59 22:59 Intake Total 300 / 2108.146 386.557 / 386.557 200 / 586.557 Balance 300 / 884.146 386.557 / 386.557 200 / 586.557 Weight last 48 hrs Weight 70.307 kg Weight 74.843 kg Weight 70.307 kg Physical Exam Narrative: EXAM NARRATIVE: Pt intubated Resp: AUSCULTATION: crackles Cardio: COMMON NORMALS: S1 normal heart sound present and S2 normal heart sound present HEART SOUNDS: S1 normal heart sound present and S2 normal heart sound present GI: AUSCULTATION: Yes normoactive bowel sounds Extremity: GENERAL: Yes edema Skin: COMMON NORMALS: no rashes or lesions noted GENERAL SKIN EXAM: no r ashes or lesions noted Urinary Catheter Management^: Rasheed: Cath Placed During This Visit: yes Reason for Continuing Indwelling Catheter: Accurate Measurement of Urinary Output in Critically Ill Patients Urinary Catheter Date of Insertion: 03/02/21 Urinary Catheter Time of Insertion: 00:15 Data : 03/06/21 04:03 03/06/21 14:00 Micro: Microbiology 03/04/21 07:45 Gram Stain - Final Sputum - Endotracheal Tube Aspirate Sputum Culture - Preliminary Yeast A&P Assessment and plan (1) Acute kidney injury: Will hold off on CRRT today. Will re-evaluate tommorrow for dialsis need. Monitor urine output closely. Status: Acute (2) Metabolic acidosis: Improving with CRRT Status: Acute (3) Hyponatremia: Will monitor Status: Acute (4) Hepatic failure: To be transferred to tertiary care when bed available Status: Acute Attestations Medical Necessity Statement*: LUÍS Coding Level of Care Code Acute Elastic Attacher Chainstitch for Donny Neil Diagnoses Acute kidney injury N17.9 Metabolic acidosis E87.2 Hyponatremia E87.1 Hepatic failure K72.90
--- NOTE | 2021-03-06 17:18 | PM.PN ---
Subjective Subjective: Interval history: Overnight patient was noted to have clotted off right femo line. CRRT was stopped. Remained off pressors. Medications: Reviewed: Yes Vitals/I&O/Wt Last Vital Signs Temp 98.0 F 03/06/21 12:30 Pulse 107 H 03/06/21 16:00 Resp 18 03/06/21 12:00 BP 111/78 03/06/21 16:00 Pulse Ox 98 03/06/21 16:00 03/06/21 03/06/21 03/06/21 06:59 14:59 22:59 Intake Total 300 / 2108.146 386.557 / 386.557 200 / 586.557 Balance 300 / 884.146 386.557 / 386.557 200 / 586.557 Weight last 48 hrs Weight 70.307 kg Weight 74.843 kg Weight 70.307 kg Physical Exam Narrative: EXAM NARRATIVE: General exam sedated on the ventilator HEENT; ET tube in place Cardiovascular - NSR Lungs - Vented Abdomen -non distended. demonstrates Rasheed. Right femoral temporary dialysis catheter noted Extremities - no sig edema - PIV x 3 on LUE Neuro sedated on the ventilator Urinary Catheter Management^: Rasheed: Cath Placed During This Visit: yes Reason for Continuing Indwelling Catheter: Accurate Measurement of Urinary Output in Critically Ill Patients Urinary Catheter Date of Insertion: 03/02/21 Urinary Catheter Time of Insertion: 00:15 Data : 03/06/21 04:03 03/06/21 14:00 Micro: Microbiology 03/04/21 07:45 Gram Stain - Final Sputum - Endotracheal Tube Aspirate Sputum Culture - Preliminary Yeast A&P Assessment and plan (1) Hepatic failure: Etiology of hepatic failure unclear at this time. Has history of underlying hepatitis B. Methamphetamine could also induce. Acetaminophen level is currently undetectable. He received a course of acetylcysteine. Continue supportive measures, daily INR and lab. - No evidence of bleeding Blood sugars every 6 hours Monitor closely for fluid overload in the setting of cardiomyopathy. Patient's last EF was 35%. On waiting list to transfer to tertiary care center with availability of hepatology - awaiting COVID-19 PCR Blood cultures were done prior to the administration. Blood cultures negative to date. MRSA PCR negative. Discontinue vancomycin and zosyn, continued on Primixin.. No obvious source of infection Continue octreotide drip. albumin Note that thrombocytopenia has developed, likley also due to liver failure Yeast noted on sputum culture. Fluconazole D3 today Repeat labs in AM Status: Acute (2) Hypoglycemia: Accu-Chek every 6 hours. Advance feeds. Current goal 35 cc an hour Status: Acute (3) Acute kidney injury: Probable hepatorenal failure Appreciate nephrology input Continue to monitor output closely. Creatinine kinase not significantly elevated. Dialysis was initiated March 03. CRRT initiated March 04, Clotted on 03/06. Further CRRT held. Possibly change to HD. Await further recs from nephrology Status: Acute (4) Acute encephalopathy: Etiology likely multifactorial. Could be secondary to liver failure. Cannot rule out methamphetamine effect. CT head no acute findings. Repeat ammonia level tomorrow Status: Acute (5) Cardiomyopathy: Last ejection fraction 35%. Monitor for fluid overload. Reduce fluids. Status: Acute (6) Methamphetamine use: Monitor for withdrawal Status: Acute (7) Marijuana use: Prior M.D note. During my conversation with the patient he reports wanting to get in a hot tub. This may be secondary to his THC use. Cannot rule out that vomiting he had had prior to coming in was not cyclic vomiting associated with THC use. However, cerebral edema can also occur with liver failure which could generate nausea. Status: Acute (8) Hyponatremia: Sodium improved, stable Status: Acute (9) Hematemesis: On Protonix 40 mg IV every 12 hours Hemoglobin is currently stable, and there has been no further evidence of hematemesis. I do not have any firm evidence that he has history of varices. Status: Acute Additional A&P Information Pneumonia. Apparent left lower lobe consolidation on chest x-ray today. White blood cell count continues to remain elevated. MRSA PCR negative. Discontinue vancomycin. Change Zosyn to Primaxin D2 today. Culture negative. COVID-19 PCR pending. Full code Prognosis guarded secondary to acute liver failure, acute kidney injury, encephalopathy, etc. Transfer to [facility] once covid-19 PCR reported and bed avaiable. SCDs for DVT prophylaxis. Attestations Medical Necessity Statement*: Willl continue current hospitalization for management of vent, liver failure, renal failure, pneuonia on CRRT Time Spent in Patient Care: Greater than 35 minutes (>than 50% of time spent in counselling and/or direct pt care on unit). Critical Care Time: Critical Care Time (min): 50 Coding Level of Care Code Acute Ambulance Operations Supervisor for [facility] Fwd Diagnoses Hepatic failure K72.90 Hypoglycemia E16.2 Acute kidney injury N17.9 Acute encephalopathy G93.40 Cardiomyopathy I42.9 Methamphetamine use F15.10 Marijuana use F12.90 Hyponatremia E87.1 Hematemesis K92.0
[2021-03-06 17:44] LABS: Glucose Point of Care 116 mg/dL (70-110)
[2021-03-06 20:36] LABS: Magnesium 2.5 mg/dL (1.7-2.3)
--- NOTE | 2021-03-06 21:36 | P.TS_ITS ---
Transfer Summary Providers Date of Admission: 03/02/21 16:41 Date of Discharge: 03/06/21 Attending Provider at Admission: Hiro Delaney MD Attending Provider at Transfer: Yesenia Wang Primary Care Provider: Dakotah Gordon MD Anticipated Date of Transfer: Anticipated date of transfer: 03/19/21 Receiving Facility & Provider: Receiving Provider: [] Receiving facility: [] Diagnoses at Discharge Discharge Diagnosis (1) Hepatic failure: Status: Acute (2) Hypoglycemia: Status: Acute (3) Acute kidney injury: Status: Acute (4) Acute encephalopathy: Status: Acute (5) Cardiomyopathy: Status: Acute (6) Methamphetamine use: Status: Acute (7) Marijuana use: Status: Acute (8) Hyponatremia: Status: Acute (9) Hematemesis: Status: Acute Reason for Visit Reason for Visit: NAUSEA Hospital Course Hospital Course 50-year-old gentleman with history of hepatitis B and substance abuse who presents emergency department due to hematemesis. The exact course of his symptoms is somewhat unclear as he is ill-appearing and has recurrent vomiting without bright red blood. Apparently, this for going on for several days. It is unclear whether vomiting occurred first and then hematemesis or hematemesis was noted initially. He does endorse a history of similar. He has generalized malaise. He is currently on doxycycline for somewhat unclear reasons. Overall, the course of symptoms has been worsening. Upon arrival he was noted to have hepatic failure and renal failure. Initial laboratory workup showed a WBC of 23.8, hemoglobin of 12.1, hematocrit 37.6 and a platelet count of 298. INR 2.88. Sodium 124, potassium 4.5, chloride 82 bicarb 20, BUN 77 and creatinine of 4.2. Prior to this creatinine was 1.2. AST of 1643, ALT of 901, alkaline phosphatase of 311 creatinine kinase of 559. Hepatitis-B surface antigen was reactive. ASO titer was 564 he was started on broad-spectrum antibiotics. On 03/03 patient was noted to have respiratory failure. He was emergently intubated and placed on mechanical ventilation. Subsequently was noted to have decreased urine output. He was started on CRRT. During this time process for transfer to [facility] was initiated and on 03/06 in pm he was accepted and transferred. Physical Exam Narrative: EXAM NARRATIVE: General exam sedated on the ventilator HEENT; ET tube in place Cardiovascular - NSR Lungs - Vented Abdomen -non distended. demonstrates Rasheed. Right femoral temporary dialysis catheter noted Extremities - no sig edema - PIV x 3 on LUE Neuro sedated on the ventilator Urinary Catheter Management^: Rasheed: Cath Placed During This Visit: yes Reason for Continuing Indwelling Catheter: Accurate Measurement of Urinary Output in Critically Ill Patients Urinary Catheter Date of Insertion: 03/02/21 Urinary Catheter Time of Insertion: 00:15 TS Data Data Completed and Pending: Completed Studies During Hospitalization Category Date Time Status CT chest abd pel w con* Urgent Cat Scan 03/01/21 22:[address] head wo con* 7 0450 Urgent Cat Scan 03/01/21 22:21 Completed CXRP [XR chest 1V portable [id number]] R outine Exams 03/03/21 11:50 Completed XR chest 1V barb ble [id number] Routine Exams 03/04/21 07:00 Completed XR chest 1V barb ble [id number] Routine Exams 03/05/21 07:00 Completed XR chest 1V barb ble [id number] Stat Exams 03/03/21 10:39 Completed XR chest 1V barb ble [id number] Urgent Exams 03/01/21 21:35 Completed Pending at discharge Category Date Time Status Anti-Neutrophil C ytoplasmic AB Rout ine Lab 03/02/21 19:39 Received Vitals: Last Vital Signs Temp 98.0 F 03/06/21 23:26 Pulse 102 H 03/06/21 23:26 Resp 18 03/06/21 23:26 BP 108/79 03/06/21 23:26 Pulse Ox 99 03/06/21 23:26 TS Medications Medications Home Medications doxycycline monohydrate 100 mg PO BID 03/02/21 [History Confirmed 03/02/21] Discharge Plan Discharge Patient Disposition: Xfer Short-Term Hosp Prescriptions: No Action doxycycline monohydrate 100 mg tablet 100 mg PO BID RF: 0 Discharge Orders: Discharge Order (Routine); Ordered 03/03/21 Ordered By: Domitila Mullen Patient Instructions: Opioid Safety Transfer Attestations Time Spent in Transfer Care*: greater than 30 min Specific Discharge Activities: Specific discharge activities: discussing with pcp/other providers, discussing with case planner/social workers/dc planners, documenting/other paperwork and evaluating patient/reviewing data Status at Transfer: Cognitive status at transfer: other (intubated on vent) , Behavioral status at transfer: other (Sedated ) , Quality Metrics Clinical Quality Measures: During this hospital stay, did patient experience: None Coding Level of Care Code Acute Building Custodial Supervisor for [facility] Fwd Diagnoses Hepatic failure K72.90 Hypoglycemia E16.2 Acute kidney injury N17.9 Acute encephalopathy G93.40 Cardiomyopathy I42.9 Methamphetamine use F15.10 Marijuana use F12.90 Hyponatremia E87.1 Hematemesis K92.0
[2021-03-06] MEDS: propofol 1,000 MG/100 ML INJ 11.43 MG IV (22:17)
[2021-03-06 22:34] LABS: Glucose Point of Care 124 mg/dL (70-110)
--- NOTE | 2021-03-06 22:40 | PC.NURSE ---
2129 - Destini from [facility] transfer center called with bed availability, RM 423 at [facility]. 2144 - Called Report to Philomena Padron RN at [facility] ICU. 2213 - Notified Sister Briana Machado of patients transfer to [facility] room 423 via ground ambulance tonight. 2239 - Blood glucose 124, awaiting [facility] for patient transfer.
[2021-03-06 23:12] LABS: Quest SARS-CoV-2 RNA NOT DETECTED (NOT DETECTED)
== END 2021-03-06 23:25 | disposition short-term general hospital (02) | DRG 441 ==
LOC: ER 03-02 06:41 → ER IP 03-02 16:41 → ICU 03-03 10:13
PROVIDERS: Emergency Medicine; Internal Medicine; Internal Medicine Nephrology; Admitting Provider Internal Medicine; Emergency Provider Family Medicine; PCP Urology; Visit Provider Hospitalist
DX: K72.00 Acute and subacute hepatic failure without coma (principal); J96.90 Respiratory failure, unspecified, unspecified whether with hypoxia or hypercapnia; J18.9 Pneumonia, unspecified organism; K76.7 Hepatorenal syndrome; B19.10 Unspecified viral hepatitis B without hepatic coma; I42.9 Cardiomyopathy, unspecified; N17.9 Acute kidney failure, unspecified; E87.1 Hypo-osmolality and hyponatremia; E87.4 Mixed disorder of acid-base balance; K92.0 Hematemesis; T82.818A Embolism due to vascular prosthetic devices, implants and grafts, initial encounter; J44.9 Chronic obstructive pulmonary disease, unspecified; F12.90 Cannabis use, unspecified, uncomplicated; F15.90 Other stimulant use, unspecified, uncomplicated; F17.210 Nicotine dependence, cigarettes, uncomplicated; E16.2 Hypoglycemia, unspecified; Y81.1 Therapeutic (nonsurgical) and rehabilitative general- and plastic-surgery devices associated with adverse incidents; D69.6 Thrombocytopenia, unspecified; N45.1 Epididymitis
CPT/HCPCS: 36415; 36416; 36430; 36600; 51702; 70450; 71045; 71260; 74177; 80048; 80051; 80053; 80069; 80074; 80076; 80306; 80307; 81001; 82140; 82330; 82533; 82550; 82570; 82803; 82805; 82962; 83516; 83605; 83690; 83735; 84100; 84300; 84443; 84550; 85025; 85610; 86038; 86060; 86160; 86225; 86850; 86900; 86927; 87040; 87070; 87106; 87205; 87426; 87635; 87641; 93005; 94002; 94003; 94799; 96365; 96366; 96367; 96368; 96372; 96375; 96376; 99291; 99292; C9113; J0132; J0692; J0696; J0743; J1450; J1630; J1644; J2060; J2250; J2354; J2405; J2543; J2704; J3010; J3370; J3411; J3430; J3490; J7030; J7040; J7050; P9017; P9047; Q3014; Q9967